=== PATIENT | male | born 1935 | race Caucasian/White ===

== ENCOUNTER 2020-03-30 19:09 | Inpatient (IN) | payer MEDICARE, SELFPAY ==
[2020-03-30 19:16] VITALS: BP 161/72; PULSE 82; RESP 16; TEMP 36.6; O2SAT 95; BMI 17.6
--- NOTE | 2020-03-30 19:52 | CT_ITS ---
EXAMINATION: CT BRAIN AND CT CERVICAL SPINE WITHOUT CONTRAST. CLINICAL INFORMATION: Fall, head. Injury. Neck pain. COMPARISON: None TECHNIQUE: 5 mm thin axial and reformatted 2 mm thin sagittal and coronal images of brain were obtained. Subsequently axial 3 mm thin and reformatted 2 mm thin sagittal and coronal images of cervical spine were obtained. [facility] 885 FINDINGS: BRAIN: There is no acute intra-axial, extra-axial bleed, masses or midline shift. No acute infarction in evolution. The lateral ventricles are asymmetrical but enlarged. There is mild prominence of cortical sulci. The parham to white matter differentiation is maintained normal. Bone windows reveal no calvarial abnormality. No scalp soft tissue amount. The paranasal sinuses and mastoid air cells are well-aerated. CERVICAL SPINE: There is maintained cervical lordosis. The vertebral heights, and alignment is normal. The disc heights are maintained and normal. The craniovertebral junction and C1-C2 alignment is normal. There is no visible acute fracture, dislocation or subluxation seen. The prevertebral and paravertebral soft tissues are normal. There is mild ventral spondylosis C6-C7 disc level. The lung apices are clear. CT/CT head/brain wo con IMPRESSION: No acute intracranial process seen.. No acute fracture, dislocation or subluxation seen. There is mild ventral spondylosis C6-C7 disc level.
--- NOTE | 2020-03-30 19:52 | XR_ITS ---
EXAMINATION: SINGLE VIEW CHEST, PELVIS AND RIGHT HIP CLINICAL INFORMATION: Fall with hip pain COMPARISON: CT abdomen pelvis 10/02/2008 TECHNIQUE: Single view chest, single view pelvis with 3 additional views right hip FINDINGS: Chest: No significant abnormality is seen involving the heart, lungs, mediastinum or bony thorax. Pelvis and right hip: there is a fracture of the surgical neck of the right femur with about 1.8 cm of superior subluxation. There is mild varices angulation. No other fractures are seen. Incidental note made of fiduciary clips in the prostate bed. XR/XR chest 1V IMPRESSION: Right femoral neck fracture.
--- NOTE | 2020-03-30 19:52 | CT_ITS ---
EXAMINATION: CT BRAIN AND CT CERVICAL SPINE WITHOUT CONTRAST. CLINICAL INFORMATION: Fall, head. Injury. Neck pain. COMPARISON: None TECHNIQUE: 5 mm thin axial and reformatted 2 mm thin sagittal and coronal images of brain were obtained. Subsequently axial 3 mm thin and reformatted 2 mm thin sagittal and coronal images of cervical spine were obtained. [facility] [id number] FINDINGS: BRAIN: There is no acute intra-axial, extra-axial bleed, masses or midline shift. No acute infarction in evolution. The lateral ventricles are asymmetrical but enlarged. There is mild prominence of cortical sulci. The parham to white matter differentiation is maintained normal. Bone windows reveal no calvarial abnormality. No scalp soft tissue amount. The paranasal sinuses and mastoid air cells are well-aerated. CERVICAL SPINE: There is maintained cervical lordosis. The vertebral heights, and alignment is normal. The disc heights are maintained and normal. The craniovertebral junction and C1-C2 alignment is normal. There is no visible acute fracture, dislocation or subluxation seen. The prevertebral and paravertebral soft tissues are normal. There is mild ventral spondylosis C6-C7 disc level. The lung apices are clear. CT/CT cervical spine wo con IMPRESSION: No acute intracranial process seen.. No acute fracture, dislocation or subluxation seen. There is mild ventral spondylosis C6-C7 disc level.
--- NOTE | 2020-03-30 19:52 | XR_ITS ---
EXAMINATION: SINGLE VIEW CHEST, PELVIS AND RIGHT HIP CLINICAL INFORMATION: Fall with hip pain COMPARISON: CT abdomen pelvis 10/02/2008 TECHNIQUE: Single view chest, single view pelvis with 3 additional views right hip FINDINGS: Chest: No significant abnormality is seen involving the heart, lungs, mediastinum or bony thorax. Pelvis and right hip: there is a fracture of the surgical neck of the right femur with about 1.8 cm of superior subluxation. There is mild varices angulation. No other fractures are seen. Incidental note made of fiduciary clips in the prostate bed. XR/XR hip RT w [id number] IMPRESSION: Right femoral neck fracture.
--- NOTE | 2020-03-30 19:55 | ECG_ITS ---
Test Reason : FALL Blood Pressure : / mmHG Vent. Rate : 080 BPM Atrial Rate : 300 BPM P-R Int : 000 ms QRS Dur : 130 ms QT Int : 392 ms P-R-T Axes : 000 -51 038 degrees QTc Int : 452 ms Baseline artifact in tracing Normal sinus rhythm Right bundle branch block Abnormal ECG When compared with ECG of 12-SEP-2008 10:08, due to poor quality, cannot compare Referred By: Jignesh Ashford Electronically Signed By:JEREMY GOODMAN
--- NOTE | 2020-03-30 20:05 | ED.GENADULT ---
HPI - General Adult General Chief complaint: Fall Stated complaint: fall Time Seen by Provider: 03/30/20 19:42 Source: patient and family (Daughter,Angélica ) Mode of arrival: EMS Limitations: language barrier ([place]ian speaking only) History of Present Illness HPI narrative: 84-year-old male who presents emergency department for evaluation of injuries after a fall. According to his daughter, the patient has neuropathy of his lower extremities and is able to walk with a cane and walker but often takes very small steps. The patient came out of the bathroom at 5:30 p.m., tripped and fell. The states that the patient did not lose consciousness but he was unable to get off the floor. She dragged him into the living room but he was unable to stand secondary to pain in his right hip. An ambulance was called and he was brought to the emergency department. The daughter states the patient was not ill in any way prior to the fall. In the emergency department, the patient is complaining of headache which is a constant, pressure-like sensation which is [id number] in intensity. He is complaining of right chest pain which is worse with movement and breathing. He is also complaining of severe pain in his right hip which is a constant, sharp, stabbing pain which is 8/10 at its worst. Related Data Home Medications Medication Instructions Recorded Confirmed atorvastatin 1 tab PO DAILY 03/30/20 03/30/20 lidocaine-prilocaine 1 appl TOPICAL BEDTIME 03/30/20 03/30/20 lisinopril 1 tab PO DAILY 03/30/20 03/30/20 oxybutynin chloride 1 tab PO DAILY 03/30/20 03/30/20 pregabalin [Lyrica] 1 cap PO BID 03/30/20 03/30/20 tamsulosin 1 cap PO DAILY 03/30/20 03/30/20 Allergies Allergy/AdvReac Type Severity Reaction Status Date / Time No Known Allergies Allergy Mild N/A Verified 03/30/20 19:20 Review of Systems Review of Systems: Yes all other systems are reviewed and are negative Neurologic: Reports Abnormal speech present [facility] Past Medical History [facility] Narrative: Patient has a history of hypertension and lower extremity neuropathy. The daughter states he had a colon procedure for ?early cancer ?. The patient is a former smoker but does not currently smoke. He does not drink alcohol. He does not use drugs. Medical History (Updated 03/30/20 @ 22:35 by Titus Rinaldi MD) HTN (hypertension) Social History Social History Smoking Status: Never smoker Use of substances other than those prescribed or required for medical reasons: No Advance Directives: No Advance Directives Information Provided: Yes Physical Exam Vital Signs: Vital Signs: Last Vital Signs Temp 98.2 F 03/30/20 22:01 Pulse 95 03/30/20 22:01 Resp 20 03/30/20 22:01 BP 145/70 H 03/30/20 22:01 Pulse Ox 91 L 03/30/20 22:01 Body Mass Index 17.6 Const: General: cooperative Nutritional Appearance: thin Orientation/consciousness: oriented to person and oriented to place HENMT: Head: Yes normal to inspection, Yes normocephalic and No atraumatic (Tenderness over occiput, no hematoma) Ears: external ears normal General nose exam: Normal external nose present Face and sinus: Yes normal facial exam Mouth: Normal oral and palatal mucosa present Throat: Yes posterior oropharynx normal Eyes: Periorbital: periorbital findings normal Eyelids: Yes eyelids normal Conjunctivae: conjunctivae normal Sclerae: sclerae normal Corneas: corneas normal Pupils: Equal, round and reactive pupils present Direct Ophthalmoscopy: normal light reflex Neck: Neck: Yes no lymphadenopathy, Yes no meningeal signs, Yes trachea midline and Yes other (Tenderness cervical spine) Chest: Chest palpation & inspection: normal inspection of the chest and other (Right chest wall tenderness, no crepitus) Resp: Effort & Inspection: normal respiratory effort and able to speak in complete sentences Auscultation: clear to auscultation bilaterally Cardio: Rate: regular rate Rhythm: regular rhythm Heart sounds: S1 normal heart sound present, S2 normal heart sound present and no murmurs GI: Inspection: Yes normal to inspection Palpation (GI): Soft to palpation, nontender, no guarding, not rigid and No hepatosplenomegaly present : General: Yes no CVA tenderness Back/Spine/Pelvis: Back: no CVA tenderness and other (No point tenderness over her to break) Skin: Lesions: no lesions Rashes: no rashes Wounds: no wounds Neuro: General: oriented to person, oriented to place and no meningeal signs Cranial nerves: Yes Equal, round and reactive pupils present Cognition (Neuro): normal cognition Speech: Abnormal speech present Motor exam (neuro): 5/5 motor strength present throughout Extrem: General: Yes normal exam except as noted and Yes other (Right leg is shorter than left, increased pain in hip with right leg moveme) Psych: Mental Status: mental status grossly normal Speech and movement: Normal speech and movement present Affect: normal affect Attitude: cooperative Thought content: Normal thought content present Course Course Course Narrative: 84-year-old male who presents emergency department for evaluation of injuries from a fall. The patient fell at home around 5:30 p.m. and this was witnessed by his . Patient had no loss of consciousness. According to his daughter, the patient has an abnormal gait secondary to lower extremity neuropathy and he does fall occasionally. Physical examination did reveal head and neck tenderness, right chest wall tenderness and right hip tenderness with shortening of the right leg. I did order laboratory evaluation and x-rays on this patient. Patient's pain was treated with morphine 2 mg IV and Zofran 4 mg IV. He was also given a L of normal saline IV. 2: The patient's laboratory evaluation did reveal a slightly low platelet count of a [id number] otherwise was unremarkable. CT scan of the head and neck revealed no acute findings, chest x-ray revealed no acute rib fracture, x-ray of the right hip did reveal a surgical neck fracture of the femur. The patient seems to be more comfortable after receiving IV morphine. I did discuss my findings with the patient's daughter, Angélica and informed her that the patient will be admitted and evaluated by Orthopedic surgery for further treatment. 8: I did discuss the patient's presentation with the covering orthopedic surgeon, Dr. Cooper who will consult on the patient. 2233: I did discuss the patient's presentation with the covering hospitalist and the patient will be admitted to the hospital service for further management. Medical Decision Making Lab Data Result diagrams: 03/30/20 20:52 03/30/20 20:52 Labs: Lab Results 03/30/20 03/30/20 03/30/20 Range/Units 20:52 20:52 20:52 WBC 9.5 (4.8-10.8) X10*3/uL RBC 4.87 (4.60-5.80) X10*6/uL Hgb 13.0 L (14.0-18.0) g/dl Hct 40.6 L (42-52) % MCV 83.4 (80-98) fL MCH 26.7 L (27.0-33.0) pg MCHC 32.0 (31.0-36.0) g/dl RDW 14.0 (11.0-16.0) % Plt Count 123 L (160-400) X10*3/uL MPV 11.5 (9.4-12.4) fL Immature Gran % (Auto) 0.3 (0.0-0.4) % Neut % (Auto) 85.0 H (45-73) % Lymph % (Auto) 6.4 L (20-40) % [place] % (Auto) 7.6 (2-11) % Eos % (Auto) 0.5 (0-4) % Baso % (Auto) 0.2 (0-2) % Lymph # (Auto) 0.6 L (1.2-4.9) X10*3/uL [place] # (Auto) 0.7 (0.1-1.2) X10*3/uL Eos # (Auto) 0.1 (0.0-0.4) X10*3/uL Baso # (Auto) 0.0 (0.0-0.2) X10*3/uL Abs Immat Gran (auto) 0.03 (0.00-0.03) X10*3/uL Absolute Neuts (auto) 8.1 (2.0-8.3) X10*3/uL Absolute Nucleated RBC 0.000 (0.0-0.012) X10*3/uL Nucleated RBC % (auto) 0.0 (0.0-0.2) /100WBC Smear Tech's Comments VERIFIED PT 13.5 H (10.8-13.0) SEC INR 1.1 (0.9-1.1) APTT 31.3 (24.1-38.0) SEC Sodium 140 (135-145) mmol/L Potassium 4.5 (3.3-5.1) mmol/l Chloride 104 (96-108) mmol/L Carbon Dioxide 25 (22-29) mmol/L Anion Gap 16 (12-20) BUN 21 H (9-16) mg/dL Creatinine 1.23 (0.5-1.4) mg/dL Estim Creat Clear Calc 35.9 Estimated GFR 56 Random Glucose 119 H (60-115) mg/dL Calcium 8.8 (8.4-10.2) mg/dL Total Bilirubin 1.3 H (0.0-1.0) mg/dL AST 30 (5-37) U/L ALT 16 (0-40) U/L Alkaline Phosphatase 105 (39-117) U/L Total Creatine Kinase 74 (38-174) U/L Total Protein 7.2 (6.5-8.0) g/dL Albumin 4.1 (3.5-5.0) g/dL Coronavirus (PCR) (Negative) Influenza Type A (PCR) (Negative) Influenza Type B (PCR) (Negative) RSV RNA Qual (PCR) (Negative) 03/30/20 Range/Units 21:08 WBC (4.8-10.8) X10*3/uL RBC (4.60-5.80) X10*6/uL Hgb (14.0-18.0) g/dl Hct (42-52) % MCV (80-98) fL MCH (27.0-33.0) pg MCHC (31.0-36.0) g/dl RDW (11.0-16.0) % Plt Count (160-400) X10*3/uL MPV (9.4-12.4) fL Immature Gran % (Auto) (0.0-0.4) % Neut % (Auto) (45-73) % Lymph % (Auto) (20-40) % [place] % (Auto) (2-11) % Eos % (Auto) (0-4) % Baso % (Auto) (0-2) % Lymph # (Auto) (1.2-4.9) X10*3/uL [place] # (Auto) (0.1-1.2) X10*3/uL Eos # (Auto) (0.0-0.4) X10*3/uL Baso # (Auto) (0.0-0.2) X10*3/uL Abs Immat Gran (auto) (0.00-0.03) X10*3/uL Absolute Neuts (auto) (2.0-8.3) X10*3/uL Absolute Nucleated RBC (0.0-0.012) X10*3/uL Nucleated RBC % (auto) (0.0-0.2) /100WBC Smear Tech's Comments PT (10.8-13.0) SEC INR (0.9-1.1) APTT (24.1-38.0) SEC Sodium (135-145) mmol/L Potassium (3.3-5.1) mmol/l Chloride (96-108) mmol/L Carbon Dioxide (22-29) mmol/L Anion Gap (12-20) BUN (9-16) mg/dL Creatinine (0.5-1.4) mg/dL Estim Creat Clear Calc Estimated GFR Random Glucose (60-115) mg/dL Calcium (8.4-10.2) mg/dL Total Bilirubin (0.0-1.0) mg/dL AST (5-37) U/L ALT (0-40) U/L Alkaline Phosphatase (39-117) U/L Total Creatine Kinase (38-174) U/L Total Protein (6.5-8.0) g/dL Albumin (3.5-5.0) g/dL Coronavirus (PCR) NEGATIVE (Negative) Influenza Type A (PCR) NEGATIVE (Negative) Influenza Type B (PCR) NEGATIVE (Negative) RSV RNA Qual (PCR) NEGATIVE (Negative) ECG Data Attestation: I personally reviewed and interpreted this ECG as follows: Interpretation: 2011: Sinus rhythm with rate of 80, artifact baseline makes the EKG difficult to interpret, normal AL interval, prolonged QRS interval 130 milliseconds, normal QTC interval of 452 milliseconds, right bundle-branch block, no ST segment elevation or depression, no old EKG for comparison. Discharge Plan Discharge Clinical Impression: Fall, Closed displaced fracture of right femoral neck, Closed head injury, Contusion of right chest wall Patient Disposition: Admitted As Inpatient Prescriptions: No Action atorvastatin 10 mg tablet 1 tab PO DAILY RF: 0 lidocaine-prilocaine 2.5-2.5 % cream 1 appl topical BEDTIME RF: 0 tamsulosin 0.4 mg capsule 1 cap PO DAILY RF: 0 lisinopril 10 mg tablet 1 tab PO DAILY RF: 0 oxybutynin chloride 5 mg tablet extended release 24hr 1 tab PO DAILY RF: 0 pregabalin [Lyrica] 150 mg capsule 1 cap PO BID RF: 0
[2020-03-30] MEDS: 0.9 % Sodium Chloride 1,000 ML 999 ML IV (20:51)
[2020-03-30 20:59] LABS: Imm Gran Abs Auto 0.03 X10*3/uL (0.00-0.03); Imm Gran Pct Auto 0.3 % (0.0-0.4); Lymphocytes Absolute Auto 0.6 X10*3/uL (1.2-4.9); Lymphocytes Percent Auto 6.4 % (20-40); MANUAL DIFF FLAG SCAN; Mean Corpuscular Volume 83.4 fL (80-98); Mean Platelet Volume 11.5 fL (9.4-12.4); PLT CLUMP 1; SCAN SMEAR FLAG 1
[2020-03-30 21:01] LABS: Basophils Percent Auto 0.2 % (0-2); Eosinophils Absolute Auto 0.1 X10*3/uL (0.0-0.4); Eosinophils Percent Auto 0.5 % (0-4); Hematocrit 40.6 % (42-52); Mean Corpuscular Hemoglobin 26.7 pg (27.0-33.0); Monocytes Absolute Auto 0.7 X10*3/uL (0.1-1.2); Monocytes Percent Auto 7.6 % (2-11); Neutrophils Absolute Auto 8.1 X10*3/uL (2.0-8.3); Platelet Count 123 X10*3/uL (160-400); Red Blood Count 4.87 X10*6/uL (4.60-5.80); White Blood Count 9.5 X10*3/uL (4.8-10.8)
[2020-03-30 21:04] LABS: INTERNATIONAL NORM RATIO 1.1 (0.9-1.1); Prothrombin Time 13.5 SEC (10.8-13.0)
[2020-03-30 21:07] LABS: Partial Thromboplastin Time 31.3 SEC (24.1-38.0)
[2020-03-30 21:13] VITALS: RESP 15
[2020-03-30] MEDS: ondansetron HCL 4 MG/2 ML VIAL IVPUSH (21:13)
[2020-03-30] MEDS: Morphine Sulfate 4 MG/ML CARTRIDGE 2 MG IVPUSH (21:13)
--- NOTE | 2020-03-30 21:14 | PC.NURSE ---
Patient lined and lab'd, swabbed for covid. Patients medication delayed due to patient being in CAT SCAN
[2020-03-30 21:20] LABS: SLIDE REVIEW VERIFIED
[2020-03-30 21:25] LABS: Alanine Aminotransferase 16 U/L (0-40); Albumin Level 4.1 g/dL (3.5-5.0); Alkaline Phosphatase 105 U/L (39-117); Anion Gap 16 (12-20); Aspartate Amino Transferase 30 U/L (5-37); Bilirubin Total 1.3 mg/dL (0.0-1.0); Blood Urea Nitrogen 21 mg/dL (9-16); Calcium 8.8 mg/dL (8.4-10.2); Carbon Dioxide 25 mmol/L (22-29); Chloride 104 mmol/L (96-108); Creatinine Clr Calc Pharmacy 35.9; Estimated Glomerular Filt Rate 56; Glucose Random 119 mg/dL (60-115); Potassium 4.5 mmol/l (3.3-5.1); Sodium 140 mmol/L (135-145); Total Protein 7.2 g/dL (6.5-8.0)
[2020-03-30 21:54] LABS: Influenza A PCR NEGATIVE (Negative); Influenza B PCR NEGATIVE (Negative); Resp Syncy Virus RNA Qual PCR NEGATIVE (Negative); SARS COV2 PCR INHOUSE NEGATIVE (Negative)
[2020-03-30 22:01] VITALS: BP 145/70; PULSE 95; RESP 20; TEMP 36.8; O2SAT 91
[2020-03-30 22:30] LABS: Glucose Urine UA NEG (NEG); Leukocyte Esterase Urine NEG (NEG); Nitrite Urine NEG (NEG); Urine Blood NEG (NEG); Urine Ketones NEG (NEG); Urine Protein NEG (NEG-TRACE)
[2020-03-30 22:34] LABS: Appearance Urine CLEAR; Color Urine YELLOW
--- NOTE | 2020-03-30 22:47 | PM.IMHP ---
History of Present Illness Date of Service: 03/30/20 Chief Complaint: Hip fracture this is an 84 yo M with hx of HTN, HLD who presents to the hospital with fall and hip fracture. Pt [place] citizen speaking only and is a poor historian. history is obtained from ED physician who obtained history from the pts daughter. 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 it appears that pt tripped today and fell, once he fell, he wasnt able to get up and therefore his who was with him called EMS. cannot obtain rest of ROS as pt poor historian On arrival to the ED hemodynamically stable with no significant abnormal vitals Labs are significant for normal WBC of 9.5, hemoglobin of 13, hematocrit 4.6, PT of 13.5, INR of 1.1, sodium of 140, potassium 4.5, BUN of 29, creatinine of 1.23, COVID-19 influenza A/B and RSV negative, Head and cervical spine CT negative for any intracranial process, no fracture dislocation or subluxation seen in the cervical spine Hip x-ray shows right femoral neck fracture Orthopedics sr solutions consultant patient will be admitted for surgical intervention Past medical history is obtained from EMR Past medical history: hypertension, hyperlipidemia, neuropathy Past surgical history: Unknown Family history: Unknown Social history: Comes from home, lives with his , uses a walker, no recorded history of tobacco alcohol or illicit drugs at this time Review of Systems Review of Systems: Yes Unobtainable due to mental condition and Unobtainable due to mental status [facility] Medical History HTN (hypertension) Social History Smoking Status: Never smoker Use of substances other than those prescribed or required for medical reasons: No Advance Directives: No Advance Directives Information Provided: Yes Meds Allergies Allergy/AdvReac Type Severity Reaction Status Date / Time No Known Allergies Allergy Mild N/A Verified 03/30/20 19:20 Home Medications Medication Instructions Recorded Confirmed Type atorvastatin 1 tab PO DAILY 03/30/20 03/30/20 History lidocaine-prilocaine 1 appl TOPICAL BEDTIME 03/30/20 03/30/20 History lisinopril 1 tab PO DAILY 03/30/20 03/30/20 History oxybutynin chloride 1 tab PO DAILY 03/30/20 03/30/20 History pregabalin [Lyrica] 1 cap PO BID 03/30/20 03/30/20 History tamsulosin 1 cap PO DAILY 03/30/20 03/30/20 History Physical Exam Vital Signs and Narrative: Vital Signs: Last Vital Signs Temp 98.2 F 03/30/20 22:01 Pulse 95 03/30/20 22:01 Resp 20 03/30/20 22:01 BP 145/70 H 03/30/20 22:01 Pulse Ox 91 L 03/30/20 22:01 Body Mass Index 17.6 Const: General: no acute distress Eyes: General: appearance normal, both eyes and all related structures Resp: Effort & Inspection: normal respiratory effort and able to speak in complete sentences Cardio: Rate: regular rate Rhythm: regular rhythm GI: Palpation (GI): Soft to palpation Auscultation: normal bowel sounds Neuro: Cognition (Neuro): normal cognition Extrem: Other: Leg internally rotated General: Yes normal to inspection and Yes no pedal edema Results Labs CBC and Chem 7: 03/30/20 20:52 03/30/20 20:52 Labs: Laboratory Results - last 24 hr 03/30/20 03/30/20 03/30/20 20:52 20:52 20:52 MCV 83.4 MCH 26.7 L MCHC 32.0 RDW 14.0 Plt Count 123 L MPV 11.5 Immature Gran % (Auto) 0.3 Neut % (Auto) 85.0 H Lymph % (Auto) 6.4 L [place] % (Auto) 7.6 Eos % (Auto) 0.5 Baso % (Auto) 0.2 Lymph # (Auto) 0.6 L [place] # (Auto) 0.7 Eos # (Auto) 0.1 Baso # (Auto) 0.0 Abs Immat Gran (auto) 0.03 Absolute Neuts (auto) 8.1 Absolute Nucleated RBC 0.000 Nucleated RBC % (auto) 0.0 Smear Tech's Comments VERIFIED PT 13.5 H INR 1.1 APTT 31.3 Anion Gap 16 Estim Creat Clear Calc 35.9 Estimated GFR 56 Random Glucose 119 H Calcium 8.8 Total Bilirubin 1.3 H AST 30 ALT 16 Alkaline Phosphatase 105 Total Creatine Kinase 74 Total Protein 7.2 Albumin 4.1 Urine Color Urine Appearance Urine pH Ur Specific [place] Urine Protein Urine Glucose (UA) Urine Ketones Urine Blood Urine Nitrite Ur Leukocyte Esterase Coronavirus (PCR) Influenza Type A (PCR) Influenza Type B (PCR) RSV RNA Qual (PCR) 03/30/20 03/30/20 21:08 22:14 MCV MCH MCHC RDW Plt Count MPV Immature Gran % (Auto) Neut % (Auto) Lymph % (Auto) [place] % (Auto) Eos % (Auto) Baso % (Auto) Lymph # (Auto) [place] # (Auto) Eos # (Auto) Baso # (Auto) Abs Immat Gran (auto) Absolute Neuts (auto) Absolute Nucleated RBC Nucleated RBC % (auto) Smear Tech's Comments PT INR APTT Anion Gap Estim Creat Clear Calc Estimated GFR Random Glucose Calcium Total Bilirubin AST ALT Alkaline Phosphatase Total Creatine Kinase Total Protein Albumin Urine Color YELLOW Urine Appearance CLEAR Urine pH 7.0 Ur Specific [place] 1.020 Urine Protein NEG Urine Glucose (UA) NEG Urine Ketones NEG Urine Blood NEG Urine Nitrite NEG Ur Leukocyte Esterase NEG Coronavirus (PCR) NEGATIVE Influenza Type A (PCR) NEGATIVE Influenza Type B (PCR) NEGATIVE RSV RNA Qual (PCR) NEGATIVE Imaging Radiologist's Impressions: Impressions Cervical Spine CT 03/30/20 19:52 IMPRESSION: No acute intracranial process seen.. No acute fracture, dislocation or subluxation seen. There is mild ventral spondylosis C6-C7 disc level. Chest X-Ray 03/30/20 19:52 IMPRESSION: Right femoral neck fracture. Head CT 03/30/20 19:52 IMPRESSION: No acute intracranial process seen.. No acute fracture, dislocation or subluxation seen. There is mild ventral spondylosis C6-C7 disc level. Hip/Pelvis X-Ray 03/30/20 19:52 IMPRESSION: Right femoral neck fracture. Assessment and Plan (1) Fall: Qualifiers: Encounter type: initial encounter Qualified Code(s): W19.XXXA - Unspecified fall, initial encounter Status: Acute (2) Closed displaced fracture of right femoral neck: Status: Acute This is a gentleman who has a history of neuropathy who experienced a mechanical fall at home comes in with a fracture. # right closed displaced fracture of right femoral neck - appears to have been secondary to mechanical fall in the setting of neuropathy - orthopedic was consulted by ED physician will see patient in a.m. for possible intervention in the morning - will keep patient NPO - pain control # fall - secondary to mechanical in the setting of chronic severe neuropathy - consult physical therapy # hypertension - stable - continue lisinopril DVT prophylaxis: SCDs
[2020-03-31] VITALS (9 sets, daily range): BP systolic 136–177; BP diastolic 59–85; PULSE 74–94; RESP 12–20; TEMP 36.6–37.8; O2SAT 93–99
--- NOTE | 2020-03-31 | CT_ITS ---
EXAMINATION: CT ANGIOGRAM OF THE CHEST WITH AND WITHOUT CONTRAST (CT PULMONARY ANGIOGRAM FOR PE) CLINICAL INFORMATION: Reason for Exam Hyoxia COMPARISON: Chest radiograph done earlier today. TECHNIQUE: Prior to contrast administration, noncontrast localization images were obtained. Subsequently, multidetector volumetric imaging was performed from the thoracic inlet to below the diaphragms following the administration of 65 mL Omnipaque 350 intravenous contrast. No contrast reaction reported Sagittal, coronal, and MIP oblique sagittal reformatted images were obtained on the CT workstation, uploaded to PACS, and reviewed. This CT examination was performed using dose optimization techniques as appropriate, variously including the following: *Automated exposure control *Adjustment of mA and/or kV according to patient size (this includes techniques or standardized protocols for targeted exams where dose is matched to indication/reason for exam; i.e. extremities or head) *Use of iterative reconstruction technique Total exam dose-length product 271.0 mGy-cm FINDINGS: QUALITY OF STUDY/CONTRAST BOLUS: Satisfactory. PULMONARY ARTERIES: No central or segmental pulmonary emboli. THORACIC AORTA: No aneurysm or dissection. Atherosclerotic disease including coronary artery calcifications are noted. LUNG: Hypoventilatory changes are present at both lung bases (left greater than right). Mild emphysematous disease is seen. PLEURA: No pleural effusion or pneumothorax. MEDIASTINUM: Normal heart size. No pericardial effusion. No hilar or mediastinal lymphadenopathy. No evidence of septal bowing or right heart strain. CHEST WALL/AXILLA: No axillary or internal mammary lymphadenopathy. OSSEOUS STRUCTURES: No acute or suspicious osseous abnormality. UPPER ABDOMEN: Multiple hypodense lesions are present within the visualized kidneys, the largest seen within the superior pole of the left kidney measures approximately 4 cm at its maximum dimension, most consistent with incidental cysts. No reflux of contrast into the hepatic veins to suggest elevated right heart pressures. CT/CT angio chest PE protocol IMPRESSION: 1. No CT evidence of pulmonary thromboembolism. 2. Atherosclerotic disease of the aorta and is branches including coronary artery calcifications are noted. 3. Hypoventilatory changes are present at both lung bases. Mild emphysematous disease is seen. 4. Multiple hypodense lesions within the kidneys, most consistent with cortical renal cysts. VTE: Negative.
--- NOTE | 2020-03-31 | XR_ITS ---
EXAMINATION: XR CHEST CLINICAL INFORMATION: Cough COMPARISON: 03/30/2020 8:27 PM TECHNIQUE: Frontal view of the chest was obtained. FINDINGS: Normal cardiomediastinal silhouette. No focal consolidation. No pleural effusion or pneumothorax. No acute osseous abnormality. XR/XR chest 1V IMPRESSION: No acute disease within the chest.
[2020-03-31] MEDS: 0.9 % Sodium Chloride Flush 3 ML SYRINGE IVFLUSH ×3 (01:03→17:42)
[2020-03-31] MEDS: Morphine Sulfate 4 MG/ML CARTRIDGE 2 MG IVPUSH (01:46)
[2020-03-31 05:33] LABS: MANUAL DIFF FLAG NO
[2020-03-31 05:40] LABS: Basophils Percent Auto 0.1 % (0-2); Eosinophils Absolute Auto 0.1 X10*3/uL (0.0-0.4); Hematocrit 38.5 % (42-52); Hemoglobin 12.3 g/dl (14.0-18.0); Imm Gran Abs Auto 0.03 X10*3/uL (0.00-0.03); Imm Gran Pct Auto 0.3 % (0.0-0.4); Lymphocytes Absolute Auto 1.6 X10*3/uL (1.2-4.9); Lymphocytes Percent Auto 17.5 % (20-40); Mean Corpuscular HGB Conc 31.9 g/dl (31.0-36.0); Mean Corpuscular Hemoglobin 26.6 pg (27.0-33.0); Mean Corpuscular Volume 83.3 fL (80-98); Mean Platelet Volume 11.7 fL (9.4-12.4); Monocytes Absolute Auto 0.8 X10*3/uL (0.1-1.2); Monocytes Percent Auto 8.6 % (2-11); Neutrophils Absolute Auto 6.4 X10*3/uL (2.0-8.3); Neutrophils Percent Auto 72.5 % (45-73); Platelet Count 124 X10*3/uL (160-400); Red Blood Count 4.62 X10*6/uL (4.60-5.80); Red Cell Distribution Width 13.9 % (11.0-16.0); White Blood Count 8.8 X10*3/uL (4.8-10.8)
[2020-03-31 06:14] LABS: Anion Gap 13 (12-20); Blood Urea Nitrogen 17 mg/dL (9-16); Calcium 8.4 mg/dL (8.4-10.2); Carbon Dioxide 24 mmol/L (22-29); Chloride 109 mmol/L (96-108); Creatinine Clr Calc Pharmacy 50.2; Estimated Glomerular Filt Rate > 60; Glucose Random 93 mg/dL (60-115); Potassium 3.9 mmol/l (3.3-5.1); Sodium 142 mmol/L (135-145)
--- NOTE | 2020-03-31 08:06 | P.PNIM_ITS ---
Subjective Subjective Date of Service: 03/31/20 Interval History: Seen in f/u for right hip fracture from fall, has pain with movmene of the hip Review of Systems Gen: no fever Resp: no sob, no cough CV: no chest, no VEGA, no leg edema GI: No n/v, no abd pain Neuro: No confusion Musk:right hip pain Physical Exam Vital Signs: Vital Signs: Last Vital Signs Temp 100.0 F 03/31/20 08:01 Pulse 85 03/31/20 08:01 Resp 16 03/31/20 08:01 BP 149/74 H 03/31/20 08:01 Pulse Ox 95 03/31/20 08:01 Body Mass Index 17.6 Const: General: no acute distress Resp: Effort & Inspection: normal respiratory effort and able to speak in complete sentences Cardio: Rate: regular rate Rhythm: regular rhythm GI: Palpation (GI): Soft to palpation Auscultation: normal bowel sounds Neuro: Cognition (Neuro): normal cognition Extrem: Other: R Leg internally rotated, pain with right hip movement General: Yes normal to inspection and Yes no pedal edema Psych: Appearance: grossly normal Objective Data Current Medications Generic Name Dose Route Start Last Admin Trade Name Freq PRN Reason Stop Dose Admin Acetaminophen 650 mg 03/30/20 22:46 Acetaminophen 325 Mg Tablet PO Q6H PRN Pain, Mild (Pain Scale 1-3) Atorvastatin Calcium 10 mg 03/31/20 09:00 Atorvastatin Calcium 10 Mg Tablet PO DAILY [facility] Docusate Sodium 100 mg 03/31/20 09:00 Docusate Sodium 100 Mg Capsule PO DAILY [facility] Lisinopril 10 mg 03/31/20 09:00 Lisinopril 10 Mg Tablet PO DAILY [facility] Protocol Morphine Sulfate 2 mg 03/30/20 22:46 03/31/20 01:46 Morphine Sulfate 4 Mg/Ml Cartridge IVPUSH 2 mg Q4H PRN Administration Pain, Severe (Pain Scale 7-10) Ondansetron HCl 4 mg 03/30/20 22:46 Ondansetron Hcl 4 Mg/2 Ml Vial IVPUSH Q8H PRN Nausea and Vomiting Oxybutynin Chloride 5 mg 03/31/20 09:00 Oxybutynin Chloride Er 5 Mg Tab.Er.24 PO DAILY [facility] Pregabalin 150 mg 03/31/20 09:00 Pregabalin 150 Mg Capsule PO BID [facility] Sodium Chloride 3 ml 03/31/20 00:00 03/31/20 08:04 0.9 % Sodium Chloride Flush 3 Ml Syringe IVFLUSH 3 ml QSHIFT [facility] Administration Tamsulosin HCl 0.4 mg 03/31/20 09:00 Tamsulosin Hcl 0.4 Mg Capsule PO DAILY [facility] Labs CBC & Chem 7: 03/31/20 04:38 03/31/20 04:38 Assessment and Plan (1) Fall: Status: Acute (2) Closed displaced fracture of right femoral neck: Status: Acute Assessment and Plan: 84 year old gentleman with history of neuropathy is admitted due to right hip fracture related to mechanical fall # Right closed displaced fracture of right femoral neck from mechanical fall -Pain management with Tyelenol and Morphine as needed -Ortho to evaluate for operative repair -Get an ECG and if unremarkable no further cardiopulmonary testing before surgery # Fall - secondary to mechanical in the setting of chronic severe neuropathy - Physical therapy evaluation after surgery # Hypertension - stable - continue lisinopril DVT prophylaxis: SCD, heparin or Lovenox after surgery
[2020-03-31 08:26] LABS: INTERNATIONAL NORM RATIO 1.2 (0.9-1.1); Prothrombin Time 14.2 SEC (10.8-13.0)
--- NOTE | 2020-03-31 09:04 | PC.NURSE ---
helped pt with toilting, went over patient needs with director call center sales
[2020-03-31] MEDS: Docusate Sodium 100 MG CAPSULE PO (10:04)
[2020-03-31] MEDS: Atorvastatin Calcium 10 MG TABLET PO (10:04)
[2020-03-31] MEDS: Tamsulosin HCL 0.4 MG CAPSULE PO (10:05)
[2020-03-31] MEDS: Pregabalin 150 MG CAPSULE PO ×2 (10:05→19:56)
[2020-03-31 10:57] LABS: B Type Natriuretic Peptide 82 pg/mL (<100)
--- NOTE | 2020-03-31 11:15 | PC.NURSE ---
hospitalist contacted about pt results. pt sat to 88% on room air. 2l nc applied and pt sating 95%. pt will not tolerate cafeteria monitor or to continue wearing pulse ox. pt plays with cords and pulls them off. hospitalist plans to add ct scan of chest
--- NOTE | 2020-03-31 11:50 | PC.NURSE ---
xuan gomez at bedside for eval. plan for ct now
--- NOTE | 2020-03-31 12:24 | PC.NURSE ---
called to med surg for report
[2020-03-31] MEDS: iohexoL 350 MG/ML 100 ML INFUS..BTL IV (12:57)
[2020-04-01] VITALS (15 sets, daily range): BP systolic 131–162; BP diastolic 65–86; PULSE 73–109; RESP 16–22; TEMP 36.5–37.8; O2SAT 92–98; BMI 17.6
[2020-04-01] MEDS: 0.9 % Sodium Chloride Flush 3 ML SYRINGE IVFLUSH ×2 (01:01→08:45)
--- NOTE | 2020-04-01 07:13 | P.HPOP_ITS ---
History of Present Illness History of Present Illness Date of Service: 04/01/20 Chief complaint: hip fracture Narrative: Rubio Sheridan is a 84 year old male who sustained a mechanical fall and was admitted to the hospital after imaging revealed a right femoral neck fracture. He walks with a walker and uses a wheelchair for long walks because of bilateral neuropathy in his feet. He finds walking painful. He now complains of right hip pain. Review of Systems Constitutional: Constitutional: Reports as per HPI and Reports no additional constitutional complaints Eyes: Eyes: Reports no additional eye complaints Cardiovascular: Cardiovascular: Reports as per HPI and Reports no additional cardiovascular complaints Respiratory: Respiratory: Reports as per HPI and Reports no additional respiratory complaints Gastrointestinal: Gastrointestinal: Reports as per HPI and Reports no additional gastrointestinal complaints Integumentary/Breasts: Skin/Breast: Reports system reviewed and no additional complaints, except as docu Neurologic: Reports system reviewed and no additional complaints, except as documented Psychiatric: Psychiatric: Reports no additional psychiatric complaints [facility] Past Medical History Medical History HTN (hypertension) Social History Social History Household Members: Unknown / Unable to assess Housing: Unknown / Unable to assess Smoking Status: Never smoker Use of substances other than those prescribed or required for medical reasons: Unable to respond Currently Displaying Signs/Symptoms of Drug Intoxication Withdrawal: No Advance Directives: No Advance Directives Information Provided: Yes Do you have thoughts of harming others: None Do you have a plan to hurt others: No Plan Recently lost weight without trying: Unsure Meds Allergies Allergy/AdvReac Type Severity Reaction Status Date / Time No Known Allergies Allergy Mild N/A Verified 03/30/20 19:20 Home Medications Medication Instructions Recorded Confirmed Type atorvastatin 1 tab PO DAILY 03/30/20 03/30/20 History lidocaine-prilocaine 1 appl TOPICAL BEDTIME 03/30/20 03/30/20 History lisinopril 1 tab PO DAILY 03/30/20 03/30/20 History oxybutynin chloride 1 tab PO DAILY 03/30/20 03/30/20 History pregabalin [Lyrica] 1 cap PO BID 03/30/20 03/30/20 History tamsulosin 1 cap PO DAILY 03/30/20 03/30/20 History Physical Exam Vital Signs: Vital Signs: Last Vital Signs Temp 98.7 F 04/01/20 03:49 Pulse 95 04/01/20 03:49 Resp 16 04/01/20 03:49 BP 148/74 H 04/01/20 03:49 Pulse Ox 92 04/01/20 03:49 Body Mass Index 17.6 Const: General: cooperative, healthy appearing, no acute distress and well groomed Orientation/consciousness: oriented to person and oriented to place HENMT: Head: Yes normal to inspection, Yes normocephalic and Yes atraumatic Eyes: General: appearance normal, both eyes and all related structures Alignment and Position: alignment normal Conjunctivae: conjunctivae normal EOM: EOMs intact bilaterally Neck: Neck: Yes normal visual inspection and Yes trachea midline Resp: Other: No rerpiratory distress Effort & Inspection: normal respiratory effort and able to speak in complete sentences Cardio: Other: Palpable radial pulse with no appreciable rythmic abnormalities GI: Other: No abdominal distension Back/Spine/Pelvis: Cervical Spine: normal cervical lordosis and cervical ROM normal Skin: General skin exam: no rashes or lesions noted Neuro: General: oriented to person, oriented to place and gait normal Extrem: Other: pain with motion. shortened and externally rotated RLE Results Labs Result Diagrams: 03/31/20 04:38 03/31/20 04:38 Labs: Abnormal lab results 03/31/20 Range/Units 07:48 PT 14.2 H (10.8-13.0) SEC INR 1.2 H (0.9-1.1) H & H 03/30/20 03/31/20 Range/Units 20:52 04:38 Hgb 13.0 L 12.3 L (14.0-18.0) g/dl Hct 40.6 L 38.5 L (42-52) % Coagulation 03/30/20 03/31/20 Range/Units 20:52 07:48 INR 1.1 1.2 H (0.9-1.1) All other labs normal. Diagnostic results Hip x-ray: image reviewed (displaced right femoral neck fracture) Assessment and Plan (1) Closed displaced fracture of right femoral neck: Status: Acute This is an 84 yo M with a right femoral neck fracture. He walks with a walker at baseline due to neuropathy but is sensate in the hip and would be more active if it weren't for his neuropathic pain. I recommend right hip hemiarthroplasty. I discussed this in detail with his daughter and explained the risks, benefits and aternatives including but not limited to infection, dislocation, pain, loss of ambulatory capacity as well as possible medical complications including pneumonia, blood clots and . Patient and daughter expressed understanding. Patient will be assessed by medicine for medical clearance.
--- NOTE | 2020-04-01 12:40 | MHC.CM.PN ---
pt in surgery called and spoke with shanon who explains that pt had no servceis prior to admisison and she is uncertain of dc plan at this time..pt will have pt consult prior to dc home with services vs str cm will continue to follow
--- NOTE | 2020-04-01 12:55 | HO.PM.IMPN ---
Subjective Subjective Date of Service: 04/02/20 Interval History: htn , fall Physical Exam Vital Signs: Vital Signs: Last Vital Signs Temp 99.2 F 04/01/20 12:00 Pulse 109 H 04/01/20 12:00 Resp 16 04/01/20 12:00 BP 131/74 04/01/20 12:00 Pulse Ox 92 04/01/20 12:00 Body Mass Index 17.6 Physio: Constitutional: Patient is sleepy post surgery Cvs: [id number], [id number] , no murmur res: clear to auscultation ,no rhonchii or wheezing abd: no rebound or guarding ,nt, bs present. ext pulses present , no cyanosis neuro: nonfocal. Objective Data Current Medications Generic Name Dose Route Start Last Admin Trade Name Freq PRN Reason Stop Dose Admin Acetaminophen 650 mg 03/30/20 22:46 Acetaminophen 325 Mg Tablet PO Q6H PRN Pain, Mild (Pain Scale 1-3) Albuterol/Ipratropium 3 ml 03/31/20 11:16 Albuterol/Iprat 2.5/0.5mg 3 Ml Ampul.Neb INHALE RQ4H PRN Shortness of Breath Atorvastatin Calcium 10 mg 03/31/20 09:00 04/01/20 08:45 Atorvastatin Calcium 10 Mg Tablet PO Not Given DAILY [facility] Docusate Sodium 100 mg 03/31/20 09:00 04/01/20 08:45 Docusate Sodium 100 Mg Capsule PO Not Given DAILY [facility] Lisinopril 10 mg 03/31/20 09:00 04/01/20 08:45 Lisinopril 10 Mg Tablet PO Not Given DAILY [facility] Protocol Morphine Sulfate 2 mg 03/30/20 22:46 03/31/20 01:46 Morphine Sulfate 4 Mg/Ml Cartridge IVPUSH 2 mg Q4H PRN Administration Pain, Severe (Pain Scale 7-10) Ondansetron HCl 4 mg 03/30/20 22:46 Ondansetron Hcl 4 Mg/2 Ml Vial IVPUSH Q8H PRN Nausea and Vomiting Oxybutynin Chloride 5 mg 03/31/20 09:00 04/01/20 08:45 Oxybutynin Chloride Er 5 Mg Tab.Er.24 PO Not Given DAILY [facility] Pregabalin 150 mg 03/31/20 09:00 04/01/20 08:46 Pregabalin 150 Mg Capsule PO Not Given BID [facility] Sodium Chloride 3 ml 03/31/20 00:00 04/01/20 08:45 0.9 % Sodium Chloride Flush 3 Ml Syringe IVFLUSH 3 ml QSHIFT [facility] Administration Tamsulosin HCl 0.4 mg 03/31/20 09:00 04/01/20 08:46 Tamsulosin Hcl 0.4 Mg Capsule PO Not Given DAILY [facility] Labs CBC & Chem 7: 04/02/20 05:53 04/02/20 05:53 Assessment and Plan (1) Closed displaced fracture of right femoral neck: Status: Acute (2) Fall: Status: Acute Assessment and Plan: 84 year old gentleman with history of neuropathy is admitted due to right hip fracture related to mechanical fall 1. Right closed displaced fracture of right femoral neck from mechanical fall management with Tyelenol and Morphine ,s/p surgery day1 seems sleepy but awake moniter closely sedation probably related to surgery/anesthesia 2. Fall- secondary to mechanical in the setting of chronic severe neuropathy Physical therapy evaluation after surgery 3. Hypertension: continue lisinopril DVT prophylaxis: SCD, heparin or Lovenox after surgery
--- NOTE | 2020-04-01 13:45 | P.CDIC_ITS ---
CDI Concurrent Query Service Date: 04/03/20 Documentation Clarification: Please clarify if you are treating a proba ble/suspected/likely or confirmed: Mild Protein Calorie Malnutrition Moderate Protein Calorie Malnutrition Severe Protein Calorie Malnutrition No Malnutrition Provider Response: Other Other Diagnosis: Moderate protein calorie malnutrition. PLEASE DO NOT DELETE/MODIFY EXISTING CONTENT Additional information is needed in order to code to the highest accuracy and appropriate Severity of Illness (SOI). Please clarify the information noted below in your progress notes and discharge summary. Risk Factors/Clinical Indicators/Treatments 84 year old male admitted with fall and closed displaced fracture right femoral neck. Seen by orthopedics and plan is for surgery. HT. 5'10 WT. 55.9 kg BMI 17.7 Total protein 7.2, Albumin 4.1 Patient documented as thin per MD note No Nutritional Assessment in EMR CDS: Marisol Duogn RN Contact Number: [phone] Please Review the information above and exercise your independent professional judgment in responding to the query. If you concur, pleas document in the PROGRESS NOTES and DISCHARGE SUMMARY. If you do not agree with the query, please document in the query above. THIS QUERY IS PART OF THE PERMANENT MEDICAL RECORD
[2020-04-01] MEDS: ceFAZolin Sodium/Dextrose,Iso 2 GM/50 ML PIGGYBACK IV (13:58)
--- NOTE | 2020-04-01 15:39 | P.CONAN_ITS ---
HPI - Anesthesia Eval Consult details Narrative: 84 M with dementia and peripheral neuropathy p/f right hip hemiar throplasty. O/e, significant upper airway secretions and cough, unable to handle secretions well. Unclear if c/w baseline. Per ortho, patient would benefit from earlier fixation. Discussed fascia iliaca nerve block and spinal anesthesia with patient and daughter, to minimize risk of post-operative respiratory complications and delirium. CXR reviewed and clear. Daughter and ortho surgeon in agreement with plan. [facility] Past Medical History Medical History HTN (hypertension) Hypercholesteremia Neuropathy Surgical History Surgical History Hx of colonoscopy Hx of cystoscopy Social History Social History Household Members: Unknown / Unable to assess Housing: Unknown / Unable to assess Smoking Status: Never smoker Use of substances other than those prescribed or required for medical reasons: No Currently Displaying Signs/Symptoms of Drug Intoxication Withdrawal: No Advance Directives: No Advance Directives Information Provided: Yes Do you have thoughts of harming others: None Do you have a plan to hurt others: No Plan Recently lost weight without trying: Unsure service: No Meds Allergies Allergy/AdvReac Type Severity Reaction Status Date / Time No Known Allergies Allergy Mild N/A Verified 03/30/20 19:20 Home Medications Medication Instructions Recorded Confirmed Type atorvastatin 1 tab PO DAILY 03/30/20 03/30/20 History lidocaine-prilocaine 1 appl TOPICAL BEDTIME 03/30/20 03/30/20 History lisinopril 1 tab PO DAILY 03/30/20 03/30/20 History oxybutynin chloride 1 tab PO DAILY 03/30/20 03/30/20 History pregabalin [Lyrica] 1 cap PO BID 03/30/20 03/30/20 History tamsulosin 1 cap PO DAILY 03/30/20 03/30/20 History Exam Exam Date and Time: April 01, 2020 1539 Height,Weight and Vital Signs: Height 5 ft 10 in Weight 55.9 kg Last Vital Signs Temp 99.1 F 04/01/20 14:21 Pulse 97 04/01/20 14:21 Resp 18 04/01/20 14:21 BP 139/67 04/01/20 13:19 Pulse Ox 98 04/01/20 14:21 Pertinent Lab Results Pertinent Lab Results: Laboratory Tests 03/30/20 03/30/20 03/30/20 20:52 20:52 20:52 WBC 9.5 RBC 4.87 Hgb 13.0 L Hct 40.6 L MCV 83.4 MCH 26.7 L MCHC 32.0 RDW 14.0 Plt Count 123 L MPV 11.5 Immature Gran % (Auto) 0.3 Neut % (Auto) 85.0 H Lymph % (Auto) 6.4 L [place] % (Auto) 7.6 Eos % (Auto) 0.5 Baso % (Auto) 0.2 Lymph # (Auto) 0.6 L [place] # (Auto) 0.7 Eos # (Auto) 0.1 Baso # (Auto) 0.0 Abs Immat Gran (auto) 0.03 Absolute Neuts (auto) 8.1 Absolute Nucleated RBC 0.000 Nucleated RBC % (auto) 0.0 Smear Tech's Comments VERIFIED PT 13.5 H INR 1.1 APTT 31.3 Sodium 140 Potassium 4.5 Chloride 104 Carbon Dioxide 25 Anion Gap 16 BUN 21 H Creatinine 1.23 Estim Creat Clear Calc 35.9 Estimated GFR 56 Random Glucose 119 H Calcium 8.8 Total Bilirubin 1.3 H AST 30 ALT 16 Alkaline Phosphatase 105 Total Creatine Kinase 74 B-Natriuretic Peptide Total Protein 7.2 Albumin 4.1 Urine Color Urine Appearance Urine pH Ur Specific [place] Urine Protein Urine Glucose (UA) Urine Ketones Urine Blood Urine Nitrite Ur Leukocyte Esterase Coronavirus (PCR) Influenza Type A (PCR) Influenza Type B (PCR) RSV RNA Qual (PCR) Blood Type Antibody Screen 03/30/20 03/30/20 03/31/20 21:08 22:14 04:38 WBC 8.8 RBC 4.62 Hgb 12.3 L Hct 38.5 L MCV 83.3 MCH 26.6 L MCHC 31.9 RDW 13.9 Plt Count 124 L MPV 11.7 Immature Gran % (Auto) 0.3 Neut % (Auto) 72.5 Lymph % (Auto) 17.5 L [place] % (Auto) 8.6 Eos % (Auto) 1.0 Baso % (Auto) 0.1 Lymph # (Auto) 1.6 [place] # (Auto) 0.8 Eos # (Auto) 0.1 Baso # (Auto) 0.0 Abs Immat Gran (auto) 0.03 Absolute Neuts (auto) 6.4 Absolute Nucleated RBC 0.000 Nucleated RBC % (auto) 0.0 Smear Tech's Comments PT INR APTT Sodium Potassium Chloride Carbon Dioxide Anion Gap BUN Creatinine Estim Creat Clear Calc Estimated GFR Random Glucose Calcium Total Bilirubin AST ALT Alkaline Phosphatase Total Creatine Kinase B-Natriuretic Peptide Total Protein Albumin Urine Color YELLOW Urine Appearance CLEAR Urine pH 7.0 Ur Specific [place] 1.020 Urine Protein NEG Urine Glucose (UA) NEG Urine Ketones NEG Urine Blood NEG Urine Nitrite NEG Ur Leukocyte Esterase NEG Coronavirus (PCR) NEGATIVE Influenza Type A (PCR) NEGATIVE Influenza Type B (PCR) NEGATIVE RSV RNA Qual (PCR) NEGATIVE Blood Type Antibody Screen 03/31/20 03/31/20 03/31/20 04:38 07:48 10:23 WBC RBC Hgb Hct MCV MCH MCHC RDW Plt Count MPV Immature Gran % (Auto) Neut % (Auto) Lymph % (Auto) [place] % (Auto) Eos % (Auto) Baso % (Auto) Lymph # (Auto) [place] # (Auto) Eos # (Auto) Baso # (Auto) Abs Immat Gran (auto) Absolute Neuts (auto) Absolute Nucleated RBC Nucleated RBC % (auto) Smear Tech's Comments PT 14.2 H INR 1.2 H APTT Sodium 142 Potassium 3.9 Chloride 109 H Carbon Dioxide 24 Anion Gap 13 BUN 17 H Creatinine 0.88 Estim Creat Clear Calc 50.2 Estimated GFR > 60 Random Glucose 93 Calcium 8.4 Total Bilirubin AST ALT Alkaline Phosphatase Total Creatine Kinase B-Natriuretic Peptide 82 Total Protein Albumin Urine Color Urine Appearance Urine pH Ur Specific [place] Urine Protein Urine Glucose (UA) Urine Ketones Urine Blood Urine Nitrite Ur Leukocyte Esterase Coronavirus (PCR) Influenza Type A (PCR) Influenza Type B (PCR) RSV RNA Qual (PCR) Blood Type Antibody Screen 04/01/20 12:29 WBC RBC Hgb Hct MCV MCH MCHC RDW Plt Count MPV Immature Gran % (Auto) Neut % (Auto) Lymph % (Auto) [place] % (Auto) Eos % (Auto) Baso % (Auto) Lymph # (Auto) [place] # (Auto) Eos # (Auto) Baso # (Auto) Abs Immat Gran (auto) Absolute Neuts (auto) Absolute Nucleated RBC Nucleated RBC % (auto) Smear Tech's Comments PT INR APTT Sodium Potassium Chloride Carbon Dioxide Anion Gap BUN Creatinine Estim Creat Clear Calc Estimated GFR Random Glucose Calcium Total Bilirubin AST ALT Alkaline Phosphatase Total Creatine Kinase B-Natriuretic Peptide Total Protein Albumin Urine Color Urine Appearance Urine pH Ur Specific [place] Urine Protein Urine Glucose (UA) Urine Ketones Urine Blood Urine Nitrite Ur Leukocyte Esterase Coronavirus (PCR) Influenza Type A (PCR) Influenza Type B (PCR) RSV RNA Qual (PCR) Blood Type O Positive Antibody Screen NEGATIVE Airway Mallampati Class: III TM Dist: >3cm Denture: Lower Loose/Missing/Broken Teeth: Yes Heart: RRR, no murmurs on auscultation, hx negative for heart murmurs Lungs: upper airway gurgling, lung sounds clear Other: vitiligo Assessment and Plan Assessment Anesthesia Assessment: Anesthesia Plan Discussed Final Anesthetic Review NPO: Yes ASA Class: III Final Preanesthetic Review: No Changes in Pt Med Stat, Meds/Allgs Chart Re viewed, Consent Obtained/Reviewed and Anes Risks/Benef Reviewed Patient Risk: High Procedure Risk: Intermediate Anesthetic Plan Anesthetic Plan: Spinal and Regional Block Disposition: Standard PACU
--- NOTE | 2020-04-01 15:48 | MHC.CLN ---
RE: CONSULT PT IS MODERATELY MALNOURISHED WHEN DIET TO ADVANCE RECOMMEND ADDING ENSURE BID TO INCREASE KCALS SEE ALSO CLINICAL NUTRITION ASSESSMENT
--- NOTE | 2020-04-01 16:02 | MHC.SHP ---
Pre-Procedural Eval Section A The patient is an INPATIENT: Yes Changes since office visit: Yes Patient answered all questions; No Cold of Flu in the past 2 weeks, No New Medical Problems and No Changes in Medication The History & Physical has been completed within 30 days and I have reviewed it.: Yes Section B Chief Complaint: hip fracture Allergies: Allergies Allergy/AdvReac Type Severity Reaction Status Date / Time No Known Allergies Allergy Mild N/A Verified 03/30/20 19:20 Plan I have reviewed the history and physical and performed a pertinent physical examination on my patient. No changes have occurred unless specified.
--- NOTE | 2020-04-01 16:02 | PM.OP ---
Brief Operative Note Date of Service: 04/01/20 Pre-op diagnosis: right femoral neck fracture Post-op diagnosis: same Procedure: right hip hemiarthroplasty Implants: jj accolade 2 #4 with +0 51 bipolar Surgeon: Gavin Cooper MD Anesthesia: regional and spinal Estimated blood loss (mL): 100 Tourniquet time (min): 0 IV fluids (mL): 800 Pathology: other Condition: stable Disposition: PACU
--- NOTE | 2020-04-01 16:56 | PC.NURSE ---
[facility]ETHES[facility] PROVIDER CHAN BLEDSOE AT BEDSIDE AWARE INTERMITTENT SHIVERING ELEVATED TEMPERATURE. PER M.D. TEMPERATURE IMPROVED SINCE PREOP. PER M.D. MAY TRANSFER TO INPATIENT UNIT.
--- NOTE | 2020-04-01 17:16 | OP_ITS ---
SURGEON: Gavin Cooper MD INDICATIONS: This is an 84-year-old gentleman with a displaced right femoral neck fracture, consented to undergo hemiarthroplasty. PREOPERATIVE DIAGNOSIS: Right femoral neck fracture. POSTOPERATIVE DIAGNOSIS: Right femoral neck fracture. PROCEDURE PERFORMED: Right hip hemiarthroplasty. ESTIMATED BLOOD LOSS: 100 mL. COMPLICATIONS: None known. ANESTHESIA: Regional and spinal. ASSISTANTS: CHINO Christensen SPECIMENS: FLUIDS: 800. PROCEDURE IN DETAIL: The patient was brought to the operating room, placed in the left lateral decubitus position. All bony prominences were well padded. He was prepped and draped in standard sterile fashion. Time-out was called to identify proper site, proper procedure, proper surgeon. IV antibiotics per weight was administered. I began by making a curvilinear incision over the posterolateral aspect of the greater trochanter. Dissection was taken down to the tensor fascia which was incised in line with the incision. I identified the piriformis and the medial circumflex vessels. These were appeared intact. They were cauterized and a full-thickness capsulotomy was performed and the displaced neck fracture was visualized. I did clean up cut and then removed the head in entirety with a corkscrew and measured a 51 on the back table. I then used a SendTask cutter to sequentially broached up to a 4 and then trialed a 4 plus 0, 51 bipolar. I was happy with the stability and I trialed a -3, but was less happy with the stability; therefore, I placed +0. I then removed the broaches and I irrigated copiously. Then, placed my final implant. We trialed with a +0, -3 and was happiest with a +0. Final +0 bipolar was placed. Hip was taken through range of motion, was stable at all ranges. I then irrigated copiously through the 3 minute iodine soak, closed the capsule with FiberWire, and then the tensor fascia with running Quill and then the Amadou fascia and subcu and the skin with emilia. The patient was placed in sterile dressing, awakened from sedation and brought to recovery room in stable condition. There were no known complications. Please note, I had a long discussion with the daughter. The patient was mentating less lucidly prior to surgery and secretion with heavy cough was noted. We discussed the risk of pneumonia even postoperative ; however, we were able to do this under spinal anesthesia, and so he did not require intubation. GRAFT OR IMPLANTS: [place] Accolate 2 #4 with a +0, 51 bipolar. Gavin Cooper MD NE/SRIKANTH / [id number]
--- NOTE | 2020-04-01 17:19 | XR_ITS ---
EXAMINATION: XR PELVIS CLINICAL INFORMATION: Status post right hip hemiarthroplasty COMPARISON: 03/30/2020 TECHNIQUE: AP view of the pelvis. FINDINGS: Since the prior exam which demonstrated a right femoral neck fracture, patient has undergone right hip hemiarthroplasty which appears to be an good position. Surgical emilia remain in place XR/XR pelvis 1-2V IMPRESSION: Excellent appearance is status post right hemiarthroplasty
[2020-04-01] MEDS: Dextrose 5 % and 0.45 % NaCl 1,000 ML 80 ML IVCONT (17:52)
[2020-04-02] VITALS (7 sets, daily range): BP systolic 114–162; BP diastolic 63–90; PULSE 62–102; RESP 16–21; TEMP 36.2–37.4; O2SAT 95–97
--- NOTE | 2020-04-02 | XR_ITS ---
EXAMINATION: XR CHEST CLINICAL INFORMATION: Toxic/metabolic encephalopathy COMPARISON: Chest 03/31/2020 TECHNIQUE: Frontal view of the chest was obtained. FINDINGS: The lungs are well-expanded without acute pneumonic process. Heart size and pulmonary vascularity is normal. No gross bony abnormality seen. XR/XR chest 1V IMPRESSION: Unremarkable chest exam.
[2020-04-02] MEDS: Dextrose 5 % and 0.45 % NaCl 1,000 ML 80 ML IVCONT ×2 (05:28→19:11)
[2020-04-02 06:48] LABS: Anion Gap 12 (12-20); Blood Urea Nitrogen 23 mg/dL (9-16); Calcium 8.1 mg/dL (8.4-10.2); Carbon Dioxide 25 mmol/L (22-29); Chloride 106 mmol/L (96-108); Creatinine Clr Calc Pharmacy 59.8; Estimated Glomerular Filt Rate > 60; Glucose Fasting 162 mg/dL (60-99); Hematocrit 34.5 % (42-52); Imm Gran Abs Auto 0.02 X10*3/uL (0.00-0.03); Imm Gran Pct Auto 0.2 % (0.0-0.4); Lymphocytes Absolute Auto 0.5 X10*3/uL (1.2-4.9); Lymphocytes Percent Auto 6.4 % (20-40); MANUAL DIFF FLAG SCAN; Mean Corpuscular HGB Conc 31.9 g/dl (31.0-36.0); Mean Corpuscular Hemoglobin 26.3 pg (27.0-33.0); Mean Corpuscular Volume 82.3 fL (80-98); Mean Platelet Volume 11.6 fL (9.4-12.4); Monocytes Absolute Auto 0.9 X10*3/uL (0.1-1.2); Neutrophils Absolute Auto 7.1 X10*3/uL (2.0-8.3); Neutrophils Percent Auto 83.4 % (45-73); Platelet Count 119 X10*3/uL (160-400); Potassium 3.8 mmol/l (3.3-5.1); Red Blood Count 4.19 X10*6/uL (4.60-5.80); Red Cell Distribution Width 13.9 % (11.0-16.0); SCAN SMEAR FLAG 1; Sodium 139 mmol/L (135-145); White Blood Count 8.5 X10*3/uL (4.8-10.8)
--- NOTE | 2020-04-02 07:44 | P.PNOP_ITS ---
Subjective Subjective Date of Service: 04/02/20 Interval history: POD1 s/p rt hip hemiarthroplasty. Pt. resting comfortably in bed. No overnight events. Physical Exam Vital Signs: Vital Signs: Last Vital Signs Temp 97.6 F 04/02/20 04:28 Pulse 75 04/02/20 04:28 Resp 18 04/02/20 04:28 BP 130/72 04/02/20 04:28 Pulse Ox 95 04/02/20 04:28 Body Mass Index 17.6 Const: General: cooperative, healthy appearing and no acute distress Resp: Effort & Inspection: normal respiratory effort and able to speak in complete sentences Cardio: Rate: regular rate Peripheral pulses: Peripheral pulses 2+ throughout GI: Palpation (GI): Soft to palpation Skin: Lesions: no lesions Rashes: no rashes Extrem: Other: No ecchymosis, redness, or drainage. Bandage is clean dry and intact. NVI Progress Note: A&P Assessment and plan (1) Status post hip hemiarthroplasty: Status: Acute Assessment and Plan: Continue pain mgmnt Begin Lovenox 30mg SQ BID for dvt ppx begin PT for rt hip hemiarthroplasty Dispo planning-Pending PT eval, pain mgmnt Fall Risk Details Current Medications: Current Medications Generic Name Dose Route Start Last Admin Trade Name Freq PRN Reason Stop Dose Admin Acetaminophen 650 mg 03/30/20 22:46 Acetaminophen 325 Mg Tablet PO Q6H PRN Pain, Mild (Pain Scale 1-3) Albuterol/Ipratropium 3 ml 03/31/20 11:16 Albuterol/Iprat 2.5/0.5mg 3 Ml Ampul.Neb INHALE RQ4H PRN Shortness of Breath Atorvastatin Calcium 10 mg 03/31/20 09:00 04/01/20 08:45 Atorvastatin Calcium 10 Mg Tablet PO Not Given DAILY JONN Celecoxib 200 mg 04/01/20 21:00 04/01/20 20:03 Celecoxib 200 Mg Capsule PO Not Given BID JONN Docusate Sodium 100 mg 03/31/20 09:00 04/01/20 08:45 Docusate Sodium 100 Mg Capsule PO Not Given DAILY JONN Enoxaparin Sodium 30 mg 04/02/20 13:00 Enoxaparin Sodium 30 Mg/0.3 Ml Syringe SUBCUT Q12H JONN Hydromorphone HCl 0.25 mg 04/01/20 17:19 Hydromorphone Hcl 0.5 Mg/0.5 Ml Syringe IVPUSH Q4H PRN Pain, Severe (Pain Scale 7-10) Dextrose/Sodium Chloride 1,000 mls @ 80 mls/hr 04/01/20 17:19 04/02/20 05:28 D51/2ns IVCONT 80 mls/hr .[id number] JONN Administration Lisinopril 10 mg 03/31/20 09:00 04/01/20 08:45 Lisinopril 10 Mg Tablet PO Not Given DAILY [facility] Protocol Naloxone HCl 0.2 mg 04/01/20 17:19 Naloxone Hcl 0.4 Mg/Ml Vial IVPUSH Q2M PRN Excessive sedation or RR < 8 Ondansetron HCl 4 mg 03/30/20 22:46 Ondansetron Hcl 4 Mg/2 Ml Vial IVPUSH Q8H PRN Nausea and Vomiting Oxybutynin Chloride 5 mg 03/31/20 09:00 04/01/20 08:45 Oxybutynin Chloride Er 5 Mg Tab.Er.24 PO Not Given DAILY [facility] Oxycodone HCl 5 mg 04/01/20 17:19 Oxycodone Hcl Immed Release 5 Mg Tablet PO Q4H PRN Pain, Mild (Pain Scale 1-3) Pregabalin 150 mg 03/31/20 09:00 04/01/20 20:04 Pregabalin 150 Mg Capsule PO Not Given BID [facility] Sodium Chloride 3 ml 03/31/20 00:00 04/01/20 23:33 0.9 % Sodium Chloride Flush 3 Ml Syringe IVFLUSH Not Given QSHIFT [facility] Sodium Chloride 3 ml 04/02/20 00:00 04/01/20 23:33 0.9 % Sodium Chloride Flush 3 Ml Syringe IVFLUSH Not Given QSHIFT [facility] Tamsulosin HCl 0.4 mg 03/31/20 09:00 04/01/20 08:46 Tamsulosin Hcl 0.4 Mg Capsule PO Not Given DAILY [facility] Time Spent With Patient Time: Total time spent is greater than 50% in coordination of care (as documented) at patient's floor/unit and/or counseling patient: Time with patient: less than 15 minutes
[2020-04-02 08:13] LABS: SLIDE REVIEW VERIFIED
--- NOTE | 2020-04-02 09:59 | PC.NURSE ---
Morning medications held due to patient difficulty swallowing, Dr. Griffin made aware. Order for CXR
--- NOTE | 2020-04-02 11:22 | HO.POSTANES ---
Post Anesthesia Evaluation Post Anesthesia Evaluation Vital Signs: Vital Signs Temp Pulse Resp BP Pulse Ox 04/02/20 09:33 102 H 162/90 H 95 04/02/20 07:45 99.3 F 102 H 18 162/90 H 95 04/02/20 04:28 97.6 F 75 18 130/72 95 04/01/20 23:34 99.2 F 74 18 141/68 H 96 Anesthesia: Spinal Mental Status: Awake Pain Control: Satisfactory Nausea/Vomiting: None Hydration: Adequate Anesthesia-Related Issues: No Anes. Related Issues
[2020-04-02] MEDS: Enoxaparin Sodium 30 MG/0.3 ML SYRINGE SUBCUT (12:11)
--- NOTE | 2020-04-02 13:15 | HO.PM.IMPN ---
Subjective Subjective Date of Service: 04/03/20 Interval History: Metabolic toxic encephalopathy probably related to surgery related sedation. Review of Systems Seems more awake this morning denies any chest pain or shortness of breath able to answer simple questions Follow simple commands Physical Exam Vital Signs: Vital Signs: Last Vital Signs Temp 97.7 F 04/02/20 12:08 Pulse 72 04/02/20 12:08 Resp 16 04/02/20 12:08 BP 139/68 04/02/20 12:08 Pulse Ox 96 04/02/20 12:08 Body Mass Index 17.6 Constitutional: Seems more awake and alert and calm. Cvs: rrr, [id number] , no murmur res: clear to auscultation ,no rhonchii or wheezing abd: no rebound or guarding ,nt, bs present. ext pulses present , no cyanosis neuro: perrla nonfocal. moves all extermities Objective Data Current Medications Generic Name Dose Route Start Last Admin Trade Name Freq PRN Reason Stop Dose Admin Acetaminophen 650 mg 03/30/20 22:46 Acetaminophen 325 Mg Tablet PO Q6H PRN Pain, Mild (Pain Scale 1-3) Albuterol/Ipratropium 3 ml 03/31/20 11:16 Albuterol/Iprat 2.5/0.5mg 3 Ml Ampul.Neb INHALE RQ4H PRN Shortness of Breath Atorvastatin Calcium 10 mg 03/31/20 09:00 04/02/20 09:58 Atorvastatin Calcium 10 Mg Tablet PO Not Given DAILY JONN Celecoxib 200 mg 04/01/20 21:00 04/02/20 09:58 Celecoxib 200 Mg Capsule PO Not Given BID JONN Docusate Sodium 100 mg 03/31/20 09:00 04/02/20 09:59 Docusate Sodium 100 Mg Capsule PO Not Given DAILY JONN Enoxaparin Sodium 30 mg 04/02/20 13:00 04/02/20 12:11 Enoxaparin Sodium 30 Mg/0.3 Ml Syringe SUBCUT 30 mg Q12H JONN Administration Hydromorphone HCl 0.25 mg 04/01/20 17:19 Hydromorphone Hcl 0.5 Mg/0.5 Ml Syringe IVPUSH Q4H PRN Pain, Severe (Pain Scale 7-10) Dextrose/Sodium Chloride 1,000 mls @ 80 mls/hr 04/01/20 17:19 04/02/20 10:17 D51/2ns IVCONT 80 mls/hr .[id number] COUNT INCLUDES THE [facility] Infusion Lisinopril 10 mg 03/31/20 09:00 04/02/20 09:59 Lisinopril 10 Mg Tablet PO Not Given DAILY [facility] Protocol Naloxone HCl 0.2 mg 04/01/20 17:19 Naloxone Hcl 0.4 Mg/Ml Vial IVPUSH Q2M PRN Excessive sedation or RR < 8 Ondansetron HCl 4 mg 03/30/20 22:46 Ondansetron Hcl 4 Mg/2 Ml Vial IVPUSH Q8H PRN Nausea and Vomiting Oxybutynin Chloride 5 mg 03/31/20 09:00 04/02/20 09:59 Oxybutynin Chloride Er 5 Mg Tab.Er.24 PO Not Given DAILY [facility]CLUDES [facility] Oxycodone HCl 5 mg 04/01/20 17:19 Oxycodone Hcl Immed Release 5 Mg Tablet PO Q4H PRN Pain, Mild (Pain Scale 1-3) Pregabalin 150 mg 03/31/20 09:00 04/02/20 09:59 Pregabalin 150 Mg Capsule PO Not Given BID COUNT INCLUDES [facility] Sodium Chloride 3 ml 03/31/20 00:00 04/02/20 09:58 0.9 % Sodium Chloride Flush 3 Ml Syringe IVFLUSH Not Given QSHIFT COUNT INCLUDES [facility] Sodium Chloride 3 ml 04/02/20 00:00 04/02/20 09:58 0.9 % Sodium Chloride Flush 3 Ml Syringe IVFLUSH Not Given QSHIFT COUNT INCLUDES [facility] Tamsulosin HCl 0.4 mg 03/31/20 09:00 04/02/20 09:59 Tamsulosin Hcl 0.4 Mg Capsule PO Not Given DAILY [facility]CLUD[facility] Labs CBC & Chem 7: 04/03/20 06:01 04/03/20 06:01 Assessment and Plan (1) Status post hip hemiarthroplasty: Status: Acute (2) Closed displaced fracture of right femoral neck: Status: Acute (3) Fall: Status: Acute Assessment and Plan: 84 year old gentleman with history of neuropathy is admitted due to right hip fracture related to mechanical fall 1. Right closed displaced fracture of right femoral neck from mechanical fall management with Tyelenol and Morphine ,s/p surgery day2 Seems more awake and could able to answer simple question and follow simple commands. Continue to monitor, speech and swallow evaluation, cxr: Negative 2. Fall- secondary to mechanical in the setting of chronic severe neuropathy Physical therapy evaluation after surgery 3. Hypertension: contnue lisinopril DVT prophylaxis: SCD, heparin or Lovenox after surgery
--- NOTE | 2020-04-02 15:55 | MHC.CM.PN ---
Addendum entered by Beth Woodson RN 04/02/20 16:03: PT GIVEN ORIGINAL AND 3 COPIES, COPY UPLAODED TO [employer] AND PLACED IN CHART. Original Note: CM OFFERED TO COMPLETE HCP WITH PT EARLIER IN SHIFT, PT REPORTED VIA [employer] THAT PT WOULD LIKE HIS DAUGHTER JELLY BRAVO HIS HCP AND WHEN ASKED ABOUT AN ALTERNATE PT REPORTED HE WOULD LIKE HIS JOSH BELLO HIS ALTERNATE. CM TYPED UP PTS HCP AND RETURNED WITH [employer] AND REVIEWED HCP, PT IN AGREEMENT THIS IS CORRECT, PT DID HAVE DIFFICULTY SIGNING HOWEVEVER DID THE BEST HE COULD. HCP: JELLY BRAVO (DAUGHTER) [phone] ALTERNATE: JOSH BELLO () [phone].
--- NOTE | 2020-04-02 16:10 | MHC.CM.PN ---
CM RECIEVED MESSAGE FROM PT'S DAUGHTER/HCP JELLY WHO WANTED TO KNOW WHAT THE PLAN FOR DISCHARGE WOULD BE, CM DISCUSSED RECOMMENDATION FOR SHORT TERM REHAB AND ASKED DAUGHTER FOR ANY PREFERNCES, PT'S DAUGHTER WILL SPEAK WITH HER MOTHER , PT'S AND HER SISTER TO DISCUSS TONIGHT AND CM WILL CALL DAUGHTER BACK ON 04/03/20. FAMILY AWARE CM TO START REFERRAL PROCESS TODAY AND PLACED REFERRALS FOR [facility] AND [facility] TO START DUE TO FAMILY WANTING PT TO BE CLOSED TO HOME AND DECREASE OF AVAILABLE BEDS. DAUGHTER SPOKE ABOUT [facility] [place] AND THAT [facility] WANT PT HOME AND REPORTS THAT THEY SAID PT WOULD QUALIFY FOR HOME SERVICES, CM TO FOLLOW UP IN AM OF 04/03/20.
[2020-04-02] MEDS: Pregabalin 150 MG CAPSULE PO (22:17)
[2020-04-02] MEDS: Celecoxib 200 MG CAPSULE PO (22:17)
[2020-04-03] MEDS: Enoxaparin Sodium 30 MG/0.3 ML SYRINGE SUBCUT ×2 (00:23→13:45)
[2020-04-03 03:34] VITALS: BP 118/65; PULSE 80; RESP 18; TEMP 37.6; O2SAT 95
[2020-04-03 06:26] LABS: MANUAL DIFF FLAG NO
[2020-04-03 06:55] LABS: Eosinophils Absolute Auto 0.1 X10*3/uL (0.0-0.4); Eosinophils Percent Auto 1.8 % (0-4); Hematocrit 31.5 % (42-52); Hemoglobin 10.2 g/dl (14.0-18.0); Imm Gran Abs Auto 0.04 X10*3/uL (0.00-0.03); Imm Gran Pct Auto 0.6 % (0.0-0.4); Lymphocytes Absolute Auto 0.9 X10*3/uL (1.2-4.9); Lymphocytes Percent Auto 11.7 % (20-40); Mean Corpuscular HGB Conc 32.4 g/dl (31.0-36.0); Mean Corpuscular Hemoglobin 26.7 pg (27.0-33.0); Mean Corpuscular Volume 82.5 fL (80-98); Mean Platelet Volume 11.9 fL (9.4-12.4); Monocytes Absolute Auto 0.8 X10*3/uL (0.1-1.2); Monocytes Percent Auto 11.2 % (2-11); Neutrophils Absolute Auto 5.4 X10*3/uL (2.0-8.3); Neutrophils Percent Auto 74.7 % (45-73); Platelet Count 118 X10*3/uL (160-400); Red Blood Count 3.82 X10*6/uL (4.60-5.80); Red Cell Distribution Width 13.9 % (11.0-16.0); White Blood Count 7.3 X10*3/uL (4.8-10.8)
[2020-04-03 07:17] LABS: Anion Gap 9 (12-20); Blood Urea Nitrogen 20 mg/dL (9-16); Calcium 7.8 mg/dL (8.4-10.2); Carbon Dioxide 26 mmol/L (22-29); Chloride 106 mmol/L (96-108); Creatinine Clr Calc Pharmacy 63.2; Estimated Glomerular Filt Rate > 60; Glucose Fasting 122 mg/dL (60-99); Potassium 3.5 mmol/l (3.3-5.1); Sodium 137 mmol/L (135-145)
[2020-04-03 08:21] VITALS: BP 136/65; PULSE 69; RESP 16; TEMP 37.3; O2SAT 97
[2020-04-03] MEDS: 0.9 % Sodium Chloride Flush 3 ML SYRINGE IVFLUSH ×2 (08:40→16:35)
[2020-04-03] MEDS: Atorvastatin Calcium 10 MG TABLET PO (08:46)
[2020-04-03] MEDS: Pregabalin 150 MG CAPSULE PO ×2 (08:46→21:17)
[2020-04-03] MEDS: Celecoxib 200 MG CAPSULE PO ×2 (08:47→21:17)
[2020-04-03] MEDS: Tamsulosin HCL 0.4 MG CAPSULE PO (08:47)
--- NOTE | 2020-04-03 09:45 | PC.RT ---
patient unable to do accapella for cpt. xray report says lungs are clear
[2020-04-03 09:46] VITALS: BP 136/65; PULSE 69; O2SAT 97
--- NOTE | 2020-04-03 09:49 | MHC.CM.PN ---
CM CALLED PT'S DAUGHTER/HCP JELLY TO GO OVER [facility] FOR STR FOR PT, MESSAGE LEFT WITH RETURN NUMBER.
--- NOTE | 2020-04-03 10:04 | PM.PNORT ---
Subjective Subjective Date of Service: 04/03/20 Principal diagnosis: s/p right hemiarthrplasty Interval history: POD 2 s/p right hip hemiarthroplasty No overnight events, resting in bed, nurse states patient has been to chair with assist Physical Exam Vital Signs: Vital Signs: Last Vital Signs Temp 99.2 F 04/03/20 08:21 Pulse 69 04/03/20 09:46 Resp 16 04/03/20 08:21 BP 136/65 04/03/20 09:46 Pulse Ox 97 04/03/20 09:46 Body Mass Index 17.6 Const: General: cooperative, healthy appearing and no acute distress Resp: Effort & Inspection: normal respiratory effort and able to speak in complete sentences Cardio: Rate: regular rate Peripheral pulses: Peripheral pulses 2+ throughout GI: Palpation (GI): Soft to palpation Skin: General skin exam: no rashes or lesions noted Extrem: Other: Right hip bandage intact, no erythema or edema, sensation and pulses present. Progress Note: A&P Assessment and plan (1) Status post hip hemiarthroplasty: Status: Acute Assessment and Plan: Continue pain mgmnt cont dvt ppx cont PT/OT for rt hip johanna. Dispo planning-per PT and medical clearance Fall Risk Details Current Medications: Current Medications Generic Name Dose Route Start Last Admin Trade Name Freq PRN Reason Stop Dose Admin Acetaminophen 650 mg 03/30/20 22:46 Acetaminophen 325 Mg Tablet PO Q6H PRN Pain, Mild (Pain Scale 1-3) Albuterol/Ipratropium 3 ml 03/31/20 11:16 Albuterol/Iprat 2.5/0.5mg 3 Ml Ampul.Neb INHALE RQ4H PRN Shortness of Breath Atorvastatin Calcium 10 mg 03/31/20 09:00 04/03/20 08:46 Atorvastatin Calcium 10 Mg Tablet PO 10 mg DAILY JONN Administration Celecoxib 200 mg 04/01/20 21:00 04/03/20 08:47 Celecoxib 200 Mg Capsule PO 200 mg BID JONN Administration Docusate Sodium 100 mg 03/31/20 09:00 04/03/20 08:47 Docusate Sodium 100 Mg Capsule PO Not Given DAILY JONN Enoxaparin Sodium 30 mg 04/02/20 13:00 04/03/20 00:23 Enoxaparin Sodium 30 Mg/0.3 Ml Syringe SUBCUT 30 mg Q12H JONN Administration Hydromorphone HCl 0.25 mg 04/01/20 17:19 Hydromorphone Hcl 0.5 Mg/0.5 Ml Syringe IVPUSH Q4H PRN Pain, Severe (Pain Scale 7-10) Lisinopril 10 mg 03/31/20 09:00 04/03/20 08:46 Lisinopril 10 Mg Tablet PO 10 mg DAILY JONN Administration Protocol Naloxone HCl 0.2 mg 04/01/20 17:19 Naloxone Hcl 0.4 Mg/Ml Vial IVPUSH Q2M PRN Excessive sedation or RR < 8 Ondansetron HCl 4 mg 03/30/20 22:46 Ondansetron Hcl 4 Mg/2 Ml Vial IVPUSH Q8H PRN Nausea and Vomiting Oxybutynin Chloride 5 mg 03/31/20 09:00 04/03/20 08:46 Oxybutynin Chloride Er 5 Mg Tab.Er.24 PO 5 mg DAILY JONN Administration Oxycodone HCl 5 mg 04/01/20 17:19 Oxycodone Hcl Immed Release 5 Mg Tablet PO Q4H PRN Pain, Mild (Pain Scale 1-3) Pregabalin 150 mg 03/31/20 09:00 04/03/20 08:46 Pregabalin 150 Mg Capsule PO 150 mg BID JONN Administration Sodium Chloride 3 ml 03/31/20 00:00 04/03/20 08:40 0.9 % Sodium Chloride Flush 3 Ml Syringe IVFLUSH 3 ml QSHIFT JONN Administration Sodium Chloride 3 ml 04/02/20 00:00 04/03/20 08:42 0.9 % Sodium Chloride Flush 3 Ml Syringe IVFLUSH Not Given QSHIFT JONN Tamsulosin HCl 0.4 mg 03/31/20 09:00 04/03/20 08:47 Tamsulosin Hcl 0.4 Mg Capsule PO 0.4 mg DAILY JONN Administration Time Spent With Patient Time: Total time spent is greater than 50% in coordination of care (as documented) at patient's floor/unit and/or counseling patient: Time with patient: less than 15 minutes
--- NOTE | 2020-04-03 11:11 | MHC.CM.PN ---
CM RECEIVED CALL FROM PT'S AND [id number] WHO WAS ASSISTING PT'S NONENGLISH SPEAKING WITH REQUEST REFERRRAL BE MADE TO [facility] FOR STR, PT HAS ALREADY BEEN ACCEPTED TO [facility] PENDING BED AVAILABILITY AND ARE FOLLOWING PT, YAK[facility] MELO ALSO FOLLOWING PT, PER PT'S PT NEEDS A STRAW FOR DRINKING AND FOOD CUT UP IN SMALL PIECES, CM TO NOTIFY NURSING. PT'S AND [id number] ALSO REPORTED AFTER PT IS DISCHARGED FROM REHAB HE WILL TRANSITION TO [facility], FAMILY AWARE OF PROCESS. CM TO CONTINUE TO FOLLOW PT FOR DISCHARGE NEEDS.
[2020-04-03 13:00] VITALS: BP 98/53; PULSE 63; RESP 17; TEMP 36.9; O2SAT 97
--- NOTE | 2020-04-03 14:48 | MHC.CLN ---
F/U 25% PO DIET RX: PUREED WITH HT LIQ-APPROPRIATE [employer] ADVISOR REC NOTED DIET 04/03 WILL START ENSURE BID TO INCREASE KCALS MONITOR PO
[2020-04-03 17:00] VITALS: BP 120/63; PULSE 73; RESP 18; TEMP 36.5; O2SAT 97
--- NOTE | 2020-04-03 18:07 | HO.PM.IMPN ---
Subjective Subjective Date of Service: 04/03/20 Interval History: Hypertension Review of Systems Patient seems to be more awake, denies any chest pain or shortness of breath or abdominal pain fever or chills Physical Exam Vital Signs: Vital Signs: Last Vital Signs Temp 98.4 F 04/03/20 13:00 Pulse 63 04/03/20 13:00 Resp 17 04/03/20 13:00 BP 98/53 L 04/03/20 13:00 Pulse Ox 97 04/03/20 13:00 Body Mass Index 17.6 Physical exam: Cvs: rrr, [id number] , no murmur res: clear to auscultation ,no rhonchii or wheezing abd: no rebound or guarding ,nt, bs present. ext pulses present , no cyanosis neuro: nonfocal. Objective Data Current Medications Generic Name Dose Route Start Last Admin Trade Name Freq PRN Reason Stop Dose Admin Acetaminophen 650 mg 03/30/20 22:46 Acetaminophen 325 Mg Tablet PO Q6H PRN Pain, Mild (Pain Scale 1-3) Albuterol/Ipratropium 3 ml 03/31/20 11:16 Albuterol/Iprat 2.5/0.5mg 3 Ml Ampul.Neb INHALE RQ4H PRN Shortness of Breath Atorvastatin Calcium 10 mg 03/31/20 09:00 04/03/20 08:46 Atorvastatin Calcium 10 Mg Tablet PO 10 mg DAILY JONN Administration Celecoxib 200 mg 04/01/20 21:00 04/03/20 08:47 Celecoxib 200 Mg Capsule PO 200 mg BID JONN Administration Docusate Sodium 100 mg 03/31/20 09:00 04/03/20 08:47 Docusate Sodium 100 Mg Capsule PO Not Given DAILY JONN Enoxaparin Sodium 30 mg 04/02/20 13:00 04/03/20 13:45 Enoxaparin Sodium 30 Mg/0.3 Ml Syringe SUBCUT 30 mg Q12H JONN Administration Hydromorphone HCl 0.25 mg 04/01/20 17:19 Hydromorphone Hcl 0.5 Mg/0.5 Ml Syringe IVPUSH Q4H PRN Pain, Severe (Pain Scale 7-10) Sodium Chloride 1,000 mls @ 80 mls/hr 04/03/20 18:15 Ns IVCONT .[id number] JONN Naloxone HCl 0.2 mg 04/01/20 17:19 Naloxone Hcl 0.4 Mg/Ml Vial IVPUSH Q2M PRN Excessive sedation or RR < 8 Ondansetron HCl 4 mg 03/30/20 22:46 Ondansetron Hcl 4 Mg/2 Ml Vial IVPUSH Q8H PRN Nausea and Vomiting Oxybutynin Chloride 5 mg 03/31/20 09:00 04/03/20 08:46 Oxybutynin Chloride Er 5 Mg Tab.Er.24 PO 5 mg DAILY JONN Administration Oxycodone HCl 5 mg 04/01/20 17:19 Oxycodone Hcl Immed Release 5 Mg Tablet PO Q4H PRN Pain, Mild (Pain Scale 1-3) Pregabalin 150 mg 03/31/20 09:00 04/03/20 08:46 Pregabalin 150 Mg Capsule PO 150 mg BID JONN Administration Sodium Chloride 3 ml 03/31/20 00:00 04/03/20 16:35 0.9 % Sodium Chloride Flush 3 Ml Syringe IVFLUSH 3 ml QSHIFT JONN Administration Sodium Chloride 3 ml 04/02/20 00:00 04/03/20 16:35 0.9 % Sodium Chloride Flush 3 Ml Syringe IVFLUSH Not Given QSHIFT JONN Tamsulosin HCl 0.4 mg 03/31/20 09:00 04/03/20 08:47 Tamsulosin Hcl 0.4 Mg Capsule PO 0.4 mg DAILY JONN Administration Labs CBC & Chem 7: 04/03/20 06:01 04/03/20 06:01 Assessment and Plan (1) Status post hip hemiarthroplasty: Status: Acute (2) Closed displaced fracture of right femoral neck: Status: Acute (3) Fall: Status: Acute Assessment and Plan: 84 year old gentleman with history of neuropathy is admitted due to right hip fracture related to mechanical fall 1. Right closed displaced fracture of right femoral neck from mechanical fall management with Tyelenol and Morphine ,s/p surgery day3 Seems more awake and could able to answer simple question and follow simple commands. Speech and Swallow recommended pureed diet Postop anemia 2. Fall- secondary to mechanical in the setting of chronic severe neuropathy Physical therapy evaluation after surgery 3. Hypertension:softer hold lisinopril and tamsulosin gentle hydration DVT prophylaxis: SCD, heparin or Lovenox after surgery
[2020-04-03] MEDS: 0.9 % Sodium Chloride 1,000 ML 80 ML IVCONT (18:42)
[2020-04-03 19:47] VITALS: BP 109/54; PULSE 62; RESP 18; TEMP 36.7; O2SAT 97
[2020-04-04 01:00] VITALS: BP 135/63; PULSE 71; RESP 18; TEMP 36.8; O2SAT 98
[2020-04-04] MEDS: Enoxaparin Sodium 30 MG/0.3 ML SYRINGE SUBCUT ×2 (02:10→12:44)
[2020-04-04 05:00] VITALS: BP 129/73; PULSE 84; RESP 18; TEMP 36.7; O2SAT 98
[2020-04-04 07:06] LABS: Basophils Percent Auto 0.2 % (0-2); Eosinophils Absolute Auto 0.2 X10*3/uL (0.0-0.4); Eosinophils Percent Auto 2.3 % (0-4); Hematocrit 32.5 % (42-52); Hemoglobin 10.3 g/dl (14.0-18.0); Imm Gran Abs Auto 0.05 X10*3/uL (0.00-0.03); Imm Gran Pct Auto 0.8 % (0.0-0.4); Lymphocytes Absolute Auto 0.6 X10*3/uL (1.2-4.9); Lymphocytes Percent Auto 9.2 % (20-40); MANUAL DIFF FLAG SCAN; Mean Corpuscular HGB Conc 31.7 g/dl (31.0-36.0); Mean Corpuscular Hemoglobin 26.6 pg (27.0-33.0); Mean Platelet Volume 10.9 fL (9.4-12.4); Monocytes Absolute Auto 0.7 X10*3/uL (0.1-1.2); Monocytes Percent Auto 10.6 % (2-11); Neutrophils Percent Auto 76.9 % (45-73); Platelet Count 145 X10*3/uL (160-400); Red Blood Count 3.87 X10*6/uL (4.60-5.80); Red Cell Distribution Width 13.7 % (11.0-16.0); SCAN SMEAR FLAG 1; White Blood Count 6.4 X10*3/uL (4.8-10.8)
[2020-04-04 07:26] VITALS: BP 118/61; PULSE 57; RESP 16; TEMP 36.7; O2SAT 98
[2020-04-04 07:33] LABS: Anion Gap 11 (12-20); Blood Urea Nitrogen 20 mg/dL (9-16); Calcium 7.6 mg/dL (8.4-10.2); Carbon Dioxide 24 mmol/L (22-29); Chloride 109 mmol/L (96-108); Estimated Glomerular Filt Rate > 60; Glucose Fasting 98 mg/dL (60-99); Potassium 3.7 mmol/l (3.3-5.1); Sodium 140 mmol/L (135-145)
[2020-04-04 07:57] LABS: SLIDE REVIEW VERIFIED
[2020-04-04 08:51] VITALS: BP 118/61; PULSE 57; O2SAT 98
--- NOTE | 2020-04-04 09:24 | P.PNOP_ITS ---
Subjective Subjective Date of Service: 04/04/20 Principal diagnosis: s/p right hemiarthrplasty Interval history: POD3 s/p rt hip hemiarthroplasty. Pt. resting comfortably in bed. No overnight events. Physical Exam 2 Vital Signs: Vital Signs: Last Vital Signs Temp 98.0 F 04/04/20 07:26 Pulse 57 04/04/20 08:51 Resp 16 04/04/20 07:26 BP 118/61 04/04/20 08:51 Pulse Ox 98 04/04/20 08:51 Body Mass Index 17.6 Const: General: cooperative, healthy appearing and no acute distress Resp: Effort & Inspection: normal respiratory effort and able to speak in complete sentences Cardio: Rate: regular rate Peripheral pulses: Peripheral pulses 2+ throughout GI: Palpation (GI): Soft to palpation Skin: Lesions: no lesions Rashes: no rashes Extrem: Other: rt hip no ecchymosis, redness, drainage. Dressing is clean dry and intact. Progress Note: A&P Assessment and plan (1) Status post hip hemiarthroplasty: Status: Acute Assessment and Plan: Continue pain mgmnt Continue Lovenox for dvt ppx Continue PT for rt hip hemiarthroplasty Dispo planning-Pending PT eval, pain mgmnt Fall Risk Details Current Medications: Current Medications Generic Name Dose Route Start Last Admin Trade Name Freq PRN Reason Stop Dose Admin Acetaminophen 650 mg 03/30/20 22:46 Acetaminophen 325 Mg Tablet PO Q6H PRN Pain, Mild (Pain Scale 1-3) Albuterol/Ipratropium 3 ml 03/31/20 11:16 Albuterol/Iprat 2.5/0.5mg 3 Ml Ampul.Neb INHALE RQ4H PRN Shortness of Breath Atorvastatin Calcium 10 mg 03/31/20 09:00 04/03/20 08:46 Atorvastatin Calcium 10 Mg Tablet PO 10 mg DAILY JONN Administration Celecoxib 200 mg 04/01/20 21:00 04/03/20 21:17 Celecoxib 200 Mg Capsule PO 200 mg BID JONN Administration Docusate Sodium 100 mg 03/31/20 09:00 04/03/20 08:47 Docusate Sodium 100 Mg Capsule PO Not Given DAILY JONN Enoxaparin Sodium 30 mg 04/02/20 13:00 04/04/20 02:10 Enoxaparin Sodium 30 Mg/0.3 Ml Syringe SUBCUT 30 mg Q12H JONN Administration Hydromorphone HCl 0.25 mg 04/01/20 17:19 Hydromorphone Hcl 0.5 Mg/0.5 Ml Syringe IVPUSH Q4H PRN Pain, Severe (Pain Scale 7-10) Sodium Chloride 1,000 mls @ 80 mls/hr 04/03/20 18:15 04/03/20 18:42 Ns IVCONT 80 mls/hr .[id number] JONN Administration Naloxone HCl 0.2 mg 04/01/20 17:19 Naloxone Hcl 0.4 Mg/Ml Vial IVPUSH Q2M PRN Excessive sedation or RR < 8 Ondansetron HCl 4 mg 03/30/20 22:46 Ondansetron Hcl 4 Mg/2 Ml Vial IVPUSH Q8H PRN Nausea and Vomiting Oxybutynin Chloride 5 mg 03/31/20 09:00 04/03/20 08:46 Oxybutynin Chloride Er 5 Mg Tab.Er.24 PO 5 mg DAILY JONN Administration Oxycodone HCl 5 mg 04/01/20 17:19 Oxycodone Hcl Immed Release 5 Mg Tablet PO Q4H PRN Pain, Mild (Pain Scale 1-3) Pregabalin 150 mg 03/31/20 09:00 04/03/20 21:17 Pregabalin 150 Mg Capsule PO 150 mg BID JONN Administration Sodium Chloride 3 ml 03/31/20 00:00 04/04/20 01:44 0.9 % Sodium Chloride Flush 3 Ml Syringe IVFLUSH Not Given QSHIFT JONN Sodium Chloride 3 ml 04/02/20 00:00 04/04/20 01:45 0.9 % Sodium Chloride Flush 3 Ml Syringe IVFLUSH Not Given QSHIFT JONN Tamsulosin HCl 0.4 mg 03/31/20 09:00 04/03/20 08:47 Tamsulosin Hcl 0.4 Mg Capsule PO 0.4 mg DAILY JONN Administration Time Spent With Patient Time: Total time spent is greater than 50% in coordination of care (as documented) at patient's floor/unit and/or counseling patient: Time with patient: less than 15 minutes
[2020-04-04] MEDS: Celecoxib 200 MG CAPSULE PO (09:40)
[2020-04-04] MEDS: Pregabalin 150 MG CAPSULE PO (09:40)
[2020-04-04] MEDS: Atorvastatin Calcium 10 MG TABLET PO (09:40)
[2020-04-04] MEDS: Tamsulosin HCL 0.4 MG CAPSULE PO (09:40)
[2020-04-04] MEDS: Docusate Sodium 100 MG CAPSULE PO (09:41)
[2020-04-04] MEDS: 0.9 % Sodium Chloride 1,000 ML 80 ML IVCONT (09:41)
--- NOTE | 2020-04-04 10:02 | MHC.CM.PN ---
Addendum entered by Beth Woodson RN 04/04/20 15:14: CM SPOKE WITH PT'S DAUGHTER/HCP JELLY TO UPDATE HER ON PT'S DISCHARGE. CM DID NOT RECEIVE CALL BACK FROM PT'S . Original Note: PER ATTENDING PT WILL BE READY FOR DISCHARGE TODAY, PT WILL TRANSFER TO [facility] AFTER 3PM PER ADMISSIONS [facility] VIA BLS TRANSPORT. CM LEFT MESSAGE FOR PT'S AND [id number] REGARDING DISCHARGE.
[2020-04-04 11:00] VITALS: BP 117/62; PULSE 69; RESP 17; TEMP 37; O2SAT 96
--- NOTE | 2020-04-04 12:38 | P.DS_ITS ---
DS: Providers Provider Date of Service: 04/04/20 Date of admission: 03/30/20 22:46 Primary care physician: Juan Antonio Hicks MD DS: Diagnosis Discharge Diagnosis (1) Status post hip hemiarthroplasty: Status: Acute DS: Medications Discharge Medications Home Medications: Home Medications Medication Instructions Recorded Confirmed atorvastatin 1 tab PO DAILY 03/30/20 03/30/20 lidocaine-prilocaine 1 appl TOPICAL BEDTIME 03/30/20 03/30/20 lisinopril 1 tab PO DAILY 03/30/20 03/30/20 oxybutynin chloride 1 tab PO DAILY 03/30/20 03/30/20 pregabalin [Lyrica] 1 cap PO BID 03/30/20 03/30/20 tamsulosin 1 cap PO DAILY 03/30/20 03/30/20 DS: Summary Hospital Course Hospital Course: 84 yo M with hx of HTN, HLD who presents to the hospital with fall and hip fracture. Pt sammarinese speaking only and is a poor historian. history is obtained from ED physician who obtained history from the pts daughter. 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 it appears that pt tripped today and fell, once he fell, he wasnt able to get up and therefore his who was with him called EMS. 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 Hospital Course problem knight section: 84 year old gentleman with history of neuropathy is admitted due to right hip fracture related to mechanical fall 1. Right closed displaced fracture of right femoral neck from mechanical fall received management with Tyelenol and Morphine ,s/p surgery day4 Seems more awake and could able to answer simple question and follow simple commands. Speech and Swallow recommended -initially pureed diet and then advanced ground/mech altered (NDD2) solids and nectar thick., continue crushed pills. 1:1 assistance or supervision at the least. Postop anemia-Monitor CBC in 1 week outpatient in rehab and further management as per rehab. 2. Hypertension:softer hold lisinopril . Assessment and plan time coordination knight spent 50 minutes. Time Spent with Patient Time attestation: Total time spent providing and/or coordinating discharge services: Discharge coordination time: Greater than 30 minutes Physical Exam Vital Signs: Vital Signs: Last Vital Signs Temp 98.6 F 04/04/20 11:00 Pulse 69 04/04/20 11:00 Resp 17 04/04/20 11:00 BP 117/62 04/04/20 11:00 Pulse Ox 96 04/04/20 11:00 Body Mass Index 17.6 Physical exam: Constitutional: Not in acute distress, sitting in chair and pleasant. Cvs: rrr, [id number] , no murmur res: clear to auscultation ,no rhonchii or wheezing abd: no rebound or guarding ,nt, bs present. ext pulses present , no cyanosis neuro: axo3 , nonfocal. DS: Data Data Completed and Pending Completed studies during hospitalization [Text1]: Pending at discharge 04/01/20 15:21 Surgical [PTH] Routine Labs on day of discharge: Laboratory Tests 03/30/20 03/30/20 03/30/20 20:52 20:52 20:52 WBC 9.5 RBC 4.87 Hgb 13.0 L Hct 40.6 L MCV 83.4 MCH 26.7 L MCHC 32.0 RDW 14.0 Plt Count 123 L MPV 11.5 Immature Gran % (Auto) 0.3 Neut % (Auto) 85.0 H Lymph % (Auto) 6.4 L [place] % (Auto) 7.6 Eos % (Auto) 0.5 Baso % (Auto) 0.2 Lymph # (Auto) 0.6 L [place] # (Auto) 0.7 Eos # (Auto) 0.1 Baso # (Auto) 0.0 Abs Immat Gran (auto) 0.03 Absolute Neuts (auto) 8.1 Absolute Nucleated RBC 0.000 Nucleated RBC % (auto) 0.0 Smear Tech's Comments VERIFIED PT 13.5 H INR 1.1 APTT 31.3 Sodium 140 Potassium 4.5 Chloride 104 Carbon Dioxide 25 Anion Gap 16 BUN 21 H Creatinine 1.23 Estim Creat Clear Calc 35.9 Estimated GFR 56 Random Glucose 119 H Fasting Glucose Calcium 8.8 Total Bilirubin 1.3 H AST 30 ALT 16 Alkaline Phosphatase 105 Total Creatine Kinase 74 B-Natriuretic Peptide Total Protein 7.2 Albumin 4.1 Urine Color Urine Appearance Urine pH Ur Specific [place] Urine Protein Urine Glucose (UA) Urine Ketones Urine Blood Urine Nitrite Ur Leukocyte Esterase Coronavirus (PCR) Influenza Type A (PCR) Influenza Type B (PCR) RSV RNA Qual (PCR) Blood Type Antibody Screen 03/30/20 03/30/20 03/31/20 21:08 22:14 04:38 WBC 8.8 RBC 4.62 Hgb 12.3 L Hct 38.5 L MCV 83.3 MCH 26.6 L MCHC 31.9 RDW 13.9 Plt Count 124 L MPV 11.7 Immature Gran % (Auto) 0.3 Neut % (Auto) 72.5 Lymph % (Auto) 17.5 L [place] % (Auto) 8.6 Eos % (Auto) 1.0 Baso % (Auto) 0.1 Lymph # (Auto) 1.6 [place] # (Auto) 0.8 Eos # (Auto) 0.1 Baso # (Auto) 0.0 Abs Immat Gran (auto) 0.03 Absolute Neuts (auto) 6.4 Absolute Nucleated RBC 0.000 Nucleated RBC % (auto) 0.0 Smear Tech's Comments PT INR APTT Sodium Potassium Chloride Carbon Dioxide Anion Gap BUN Creatinine Estim Creat Clear Calc Estimated GFR Random Glucose Fasting Glucose Calcium Total Bilirubin AST ALT Alkaline Phosphatase Total Creatine Kinase B-Natriuretic Peptide Total Protein Albumin Urine Color YELLOW Urine Appearance CLEAR Urine pH 7.0 Ur Specific [place] 1.020 Urine Protein NEG Urine Glucose (UA) NEG Urine Ketones NEG Urine Blood NEG Urine Nitrite NEG Ur Leukocyte Esterase NEG Coronavirus (PCR) NEGATIVE Influenza Type A (PCR) NEGATIVE Influenza Type B (PCR) NEGATIVE RSV RNA Qual (PCR) NEGATIVE Blood Type Antibody Screen 03/31/20 03/31/20 03/31/20 04:38 07:48 10:23 WBC RBC Hgb Hct MCV MCH MCHC RDW Plt Count MPV Immature Gran % (Auto) Neut % (Auto) Lymph % (Auto) [place] % (Auto) Eos % (Auto) Baso % (Auto) Lymph # (Auto) [place] # (Auto) Eos # (Auto) Baso # (Auto) Abs Immat Gran (auto) Absolute Neuts (auto) Absolute Nucleated RBC Nucleated RBC % (auto) Smear Tech's Comments PT 14.2 H INR 1.2 H APTT Sodium 142 Potassium 3.9 Chloride 109 H Carbon Dioxide 24 Anion Gap 13 BUN 17 H Creatinine 0.88 Estim Creat Clear Calc 50.2 Estimated GFR > 60 Random Glucose 93 Fasting Glucose Calcium 8.4 Total Bilirubin AST ALT Alkaline Phosphatase Total Creatine Kinase B-Natriuretic Peptide 82 Total Protein Albumin Urine Color Urine Appearance Urine pH Ur Specific [place] Urine Protein Urine Glucose (UA) Urine Ketones Urine Blood Urine Nitrite Ur Leukocyte Esterase Coronavirus (PCR) Influenza Type A (PCR) Influenza Type B (PCR) RSV RNA Qual (PCR) Blood Type Antibody Screen 04/01/20 04/02/20 04/02/20 12:29 05:53 05:53 WBC 8.5 RBC 4.19 L Hgb 11.0 L Hct 34.5 L MCV 82.3 MCH 26.3 L MCHC 31.9 RDW 13.9 Plt Count 119 L MPV 11.6 Immature Gran % (Auto) 0.2 Neut % (Auto) 83.4 H Lymph % (Auto) 6.4 L [place] % (Auto) 10.0 Eos % (Auto) 0.0 Baso % (Auto) 0.0 Lymph # (Auto) 0.5 L [place] # (Auto) 0.9 Eos # (Auto) 0.0 Baso # (Auto) 0.0 Abs Immat Gran (auto) 0.02 Absolute Neuts (auto) 7.1 Absolute Nucleated RBC 0.000 Nucleated RBC % (auto) 0.0 Smear Tech's Comments VERIFIED PT INR APTT Sodium 139 Potassium 3.8 Chloride 106 Carbon Dioxide 25 Anion Gap 12 BUN 23 H Creatinine 0.74 Estim Creat Clear Calc 59.8 Estimated GFR > 60 Random Glucose Fasting Glucose 162 H Calcium 8.1 L Total Bilirubin AST ALT Alkaline Phosphatase Total Creatine Kinase B-Natriuretic Peptide Total Protein Albumin Urine Color Urine Appearance Urine pH Ur Specific [place] Urine Protein Urine Glucose (UA) Urine Ketones Urine Blood Urine Nitrite Ur Leukocyte Esterase Coronavirus (PCR) Influenza Type A (PCR) Influenza Type B (PCR) RSV RNA Qual (PCR) Blood Type O Positive Antibody Screen NEGATIVE 04/03/20 04/03/20 04/04/20 06:01 06:01 06:49 WBC 7.3 6.4 RBC 3.82 L 3.87 L Hgb 10.2 L 10.3 L Hct 31.5 L 32.5 L MCV 82.5 84.0 MCH 26.7 L 26.6 L MCHC 32.4 31.7 RDW 13.9 13.7 Plt Count 118 L 145 L MPV 11.9 10.9 Immature Gran % (Auto) 0.6 H 0.8 H Neut % (Auto) 74.7 H 76.9 H Lymph % (Auto) 11.7 L 9.2 L [place] % (Auto) 11.2 H 10.6 Eos % (Auto) 1.8 2.3 Baso % (Auto) 0.0 0.2 Lymph # (Auto) 0.9 L 0.6 L [place] # (Auto) 0.8 0.7 Eos # (Auto) 0.1 0.2 Baso # (Auto) 0.0 0.0 Abs Immat Gran (auto) 0.04 H 0.05 H Absolute Neuts (auto) 5.4 5.0 Absolute Nucleated RBC 0.000 0.000 Nucleated RBC % (auto) 0.0 0.0 Smear Tech's Comments VERIFIED PT INR APTT Sodium 137 Potassium 3.5 Chloride 106 Carbon Dioxide 26 Anion Gap 9 L BUN 20 H Creatinine 0.70 Estim Creat Clear Calc 63.2 Estimated GFR > 60 Random Glucose Fasting Glucose 122 H Calcium 7.8 L Total Bilirubin AST ALT Alkaline Phosphatase Total Creatine Kinase B-Natriuretic Peptide Total Protein Albumin Urine Color Urine Appearance Urine pH Ur Specific [place] Urine Protein Urine Glucose (UA) Urine Ketones Urine Blood Urine Nitrite Ur Leukocyte Esterase Coronavirus (PCR) Influenza Type A (PCR) Influenza Type B (PCR) RSV RNA Qual (PCR) Blood Type Antibody Screen 04/04/20 06:49 WBC RBC Hgb Hct MCV MCH MCHC RDW Plt Count MPV Immature Gran % (Auto) Neut % (Auto) Lymph % (Auto) [place] % (Auto) Eos % (Auto) Baso % (Auto) Lymph # (Auto) [place] # (Auto) Eos # (Auto) Baso # (Auto) Abs Immat Gran (auto) Absolute Neuts (auto) Absolute Nucleated RBC Nucleated RBC % (auto) Smear Tech's Comments PT INR APTT Sodium 140 Potassium 3.7 Chloride 109 H Carbon Dioxide 24 Anion Gap 11 L BUN 20 H Creatinine 0.66 Estim Creat Clear Calc 67.0 Estimated GFR > 60 Random Glucose Fasting Glucose 98 Calcium 7.6 L Total Bilirubin AST ALT Alkaline Phosphatase Total Creatine Kinase B-Natriuretic Peptide Total Protein Albumin Urine Color Urine Appearance Urine pH Ur Specific [place] Urine Protein Urine Glucose (UA) Urine Ketones Urine Blood Urine Nitrite Ur Leukocyte Esterase Coronavirus (PCR) Influenza Type A (PCR) Influenza Type B (PCR) RSV RNA Qual (PCR) Blood Type Antibody Screen Discharge Plan Discharge Patient Disposition: Xfer SNF Referrals: [facility] [Other] (BLS TRANSPORTATION) [facility] [Outside] (SHORT TERM REHAB ) Elizabeth Case PA-C [Physician Paleologist] - (04/15/20 @11:00am) Discharge Medications: New acetaminophen 325 mg Tablet 650 mg PO Q6H PRN (Reason: Pain, Mild (Pain Scale 1-3)) Qty: 20 RF: 0 enoxaparin 30 mg/0.3 mL Syringe 30 mg subcut DAILY 30 Days Qty: 9 RF: 0 docusate sodium [Colace] 100 mg capsule 100 mg PO DAILY Qty: 30 RF: 0 senna 8.6 mg capsule 8.6 mg PO BEDTIME Qty: 30 RF: 0 Continued atorvastatin 10 mg tablet 1 tab PO DAILY RF: 0 lidocaine-prilocaine 2.5-2.5 % cream 1 appl topical BEDTIME RF: 0 tamsulosin 0.4 mg capsule 1 cap PO DAILY RF: 0 oxybutynin chloride 5 mg tablet extended release 24hr 1 tab PO DAILY RF: 0 pregabalin [Lyrica] 150 mg capsule 1 cap PO BID RF: 0 Held lisinopril 10 mg tablet 1 tab PO DAILY RF: 0 Hold Instructions: Resume on 04/09/20. Blood pressure is acceptable range without lisinopril, monitor blood pressure in rehab if blood pressure is consistently ab ove 140mmhg please add back lisinopril. Discharge Orders: Discharge Order (Routine); Ordered 04/04/20 Ordered By: Jimbo Griffin Diet: advance to usual diet, low fat, low cholesterol, low salt diet and other Activity on Discharge: As tolerated Stand Alone Forms: Patient Portal Discharge page Other Ambulatory Orders: Complete Blood Count no Diff (Routine) Timeframe: 1 Week Facility: [facility] - Location: Laboratory Ordered By: Jimbo Griffin Activity Restrictions/Additional Instructions: * Physical Therapy for Total hip arthroplasty: posterior precautions, gait t raining, ROM, strength * Limit stair climbing * No showering, no tub bath-keep dressing clean, dry and intact * No driving x6 weeks * Continue Lovenox tabs once a day x 4 weeks * Follow up with [facility] in 2 weeks Care Plan Goals: Restore function of right hip. Patient has anemia probable postop: Monitor H&H and in rehab in 1 week and further management as per rehab. htn: blood blood pressure is acceptable range, will hold lisinopril for now- consider adding lisinopril in a week or so if blood pressure is consistently above 140 mmHg In rehab. Speech and Swallow: Recommend UPGRADE ground/mech altered (NDD2) solids and nectar thick liquids, continue crushed pills. 1:1 assistance or supervision at the least. Health Concerns: None Plan of Treatment: Physical Therapy Pain management DVT prophylaxis
--- NOTE | 2020-04-04 13:11 | MHC.INPTTRAN ---
S/P surgery Is post op day 4 today. Aquacell dsg intact on right hip. Local edema only. Vague, forgetful at times. cooperative. OOB with max 2 assist. Remains very weak. Needs assit with eating. Is on mechanical ground with nectar thick liquids. Crush meds. Did well with meds today. Had small BM today. Had awan, removed at 0600 and has been incont urine. Lisinapril on hold for now, see orders. Mostly Japanese speaking Understands some Kazakh. thanks.
[2020-04-04] MEDS: Acetaminophen 325 MG TABLET 650 MG PO (13:24)
[2020-04-04 13:58] LABS: COVID-19 Test Negative (Negative)
== END 2020-04-04 15:38 | disposition skilled nursing facility (03) | DRG 522 ==
LOC: HO.ED 22:35 → HO.EDOVER 22:53 → HO.S3 03-31 11:33
PROVIDERS: Internal Medicine; Orthopaedic Surgery; Physician Assistant; Admitting Provider Internal Medicine; Emergency Provider Emergency Medicine Emergency Medical Services; PCP Internal Medicine; Visit Provider Internal Medicine
PROC: 0SRR0JA Replacement of Right Hip Joint, Femoral Surface with Synthetic Substitute, Uncemented, Open Approach (ICD-10-PCS; CPT 27125; principal; 2020-04-01 14:00)
DX: S72.001A Fracture of unspecified part of neck of right femur, initial encounter for closed fracture (principal); E44.0 Moderate protein-calorie malnutrition; Z68.1 Body mass index [BMI] 19.9 or less, adult; I10 Essential (primary) hypertension; D64.9 Anemia, unspecified; W19.XXXA Unspecified fall, initial encounter; Y93.9 Activity, unspecified; G62.9 Polyneuropathy, unspecified; Y92.009 Unspecified place in unspecified non-institutional (private) residence as the place of occurrence of the external cause; Y99.9 Unspecified external cause status; Z20.822 Contact with and (suspected) exposure to COVID-19; Z79.899 Other long term (current) drug therapy
CPT/HCPCS: 0241U; 36415; 70450; 71045; 71275; 72125; 72170; 73502; 80048; 80053; 81003; 82550; 83880; 85025; 85610; 85730; 86850; 86900; 86901; 87635; 88305; 88311; 92526; 92610; 93005; 96361; 96374; 96375; 97116; 97162; 97166; 97530; 97535; 99285; C1758; C1776; J0690; J1650; J2270; J2370; J2405; J3010; Q9967

== ENCOUNTER 2020-04-25 08:54 | Outpatient (REF) | payer MEDICARE, SELFPAY | END 2020-04-25 08:55 | disposition home or self-care (01) | LOC: HO.HOSX 08:54 | PROVIDERS: Visit Provider Physician Assistant | DX: Z47.1 Aftercare following joint replacement surgery (principal); Z48.02 Encounter for removal of sutures; Z96.641 Presence of right artificial hip joint | CPT/HCPCS: 99212 ==

== ENCOUNTER 2020-05-07 17:11 | Inpatient (IN) | payer MEDICARE, SELFPAY ==
[2020-05-07 17:27] VITALS: BP 141/67; PULSE 69; RESP 18; TEMP 37.2; O2SAT 98; BMI 19.5
--- NOTE | 2020-05-07 17:30 | ED_ITS ---
HPI - General Adult General Chief complaint: Weakness Stated complaint: GENERAL WEAKNESS,HYPOTENSION Time Seen by Provider: 05/07/20 17:14 Source: EMS Mode of arrival: EMS Limitations: other History of Present Illness HPI narrative: Patient is brought to emergency room via EMS. On 03/30/2020, patient had a fall, had a closed displaced fracture of the right femoral neck. Patient had surgery, discharged on April 04, sent to short-term rehab. According to EMS, the family states that the patient has been at home for 1 week, but the patient has been declining, not eating well, more lethargic. A visiting nurse went to see the patient, blood pressure was 80 systolic, when EMS arrived, the blood pressure was 100 systolic. Patient is poor historian, states that he has right hip pain and feels weak. MD complaint: Failure to thrive Related Data Home Medications Medication Instructions Recorded Confirmed atorvastatin 1 tab PO DAILY 03/30/20 03/30/20 lidocaine-prilocaine 1 appl TOPICAL BEDTIME 03/30/20 03/30/20 lisinopril 1 tab PO DAILY 03/30/20 03/30/20 oxybutynin chloride 1 tab PO DAILY 03/30/20 03/30/20 pregabalin [Lyrica] 1 cap PO BID 03/30/20 03/30/20 tamsulosin 1 cap PO DAILY 03/30/20 03/30/20 Previous Rx's Medication Instructions Recorded acetaminophen 650 mg PO Q6H PRN #20 tab 04/04/20 docusate sodium [Colace] 100 mg PO DAILY #30 cap 04/04/20 enoxaparin 30 mg SUBCUT DAILY 30 Days #9 ml 04/04/20 sennosides [senna] 8.6 mg PO BEDTIME #30 cap 04/04/20 Allergies Allergy/AdvReac Type Severity Reaction Status Date / Time No Known Allergies Allergy Mild N/A Verified 03/30/20 19:20 Review of Systems Review of Systems: Constitutional : Denies fever or chills ENT/Mouth : No ear pain, no sore throat, no difficulty swallowing Eyes: No Eye Pain, No Swelling, No Redness, No Foreign Body, No Discharge, No Vision Changes Cardiovascular : No Chest Pain, No SOB, No Dyspnea on Exertion, No Orthopnea, No Edema, No Palpitations Respiratory : No Cough, No Sputum, No Wheezing, No Smoke Exposure, No Dyspnea Gastrointestinal : No Nausea, No Vomiting, No Diarrhea, No Constipation, No abdominal Pain, No Hematochezia, No Melena Genitourinary : no irregular bleeding, No Dysuria, No Urinary Frequency, No Hematuria, No Urinary Incontinence, No Urgency, No Flank Pain, No Urinary Flow Changes, No Hesitancy Musculoskeletal : Complaining of chronic right hip pain, No Myalgias, No Joint Swelling Skin : No Skin Lesions, No rash Neuro : Denies dizziness or headache Psych : No Anxiety/Panic, No Depression Heme/Lymph: No Bruising, No Bleeding,No Lymphadenopathy Endocrine : No Polyuria, No Polydipsia, No Temperature Intolerance PMFSH Past Medical History Medical History Closed displaced fracture of right femoral neck Closed head injury Contusion of right chest wall Fall HTN (hypertension) Hypercholesteremia Neuropathy Surgical History Hx of colonoscopy Hx of cystoscopy Social History Social History Household Members: Unknown / Unable to assess Housing: Unknown / Unable to assess Smoking Status: Never smoker Advance Directives: No Advance Directives Information Provided: No service: No Physical Exam Vital Signs: Vital Signs: Last Vital Signs Temp 98.9 F 05/07/20 17:27 Pulse 69 05/07/20 20:02 Resp 14 05/07/20 20:02 BP 140/72 H 05/07/20 20:02 Pulse Ox 98 05/07/20 20:02 Body Mass Index 19.5 Course Course Course Narrative: Patient is being admitted for symptomatic UTI. Sepsis is not suspected at this time, patient discussed with our hospitalist Dr. Hewitt Medical Decision Making Lab Data Result diagrams: 05/07/20 18:51 05/07/20 19:36 Labs: Lab Results 05/07/20 05/07/20 05/07/20 Range/Units 18:51 18:51 18:51 WBC 8.5 (4.8-10.8) X10*3/uL RBC 5.11 D (4.60-5.80) X10*6/uL Hgb 13.5 L D (14.0-18.0) g/dl Hct 42.4 D (42-52) % MCV 83.0 (80-98) fL MCH 26.4 L (27.0-33.0) pg MCHC 31.8 (31.0-36.0) g/dl RDW 14.9 (11.0-16.0) % Plt Count 260 D (160-400) X10*3/uL MPV 10.5 (9.4-12.4) fL Immature Gran % (Auto) 0.5 H (0.0-0.4) % Neut % (Auto) 64.4 (45-73) % Lymph % (Auto) 22.3 (20-40) % [place] % (Auto) 8.1 (2-11) % Eos % (Auto) 4.3 H (0-4) % Baso % (Auto) 0.4 (0-2) % Lymph # (Auto) 1.9 (1.2-4.9) X10*3/uL [place] # (Auto) 0.7 (0.1-1.2) X10*3/uL Eos # (Auto) 0.4 (0.0-0.4) X10*3/uL Baso # (Auto) 0.0 (0.0-0.2) X10*3/uL Abs Immat Gran (auto) 0.04 H (0.00-0.03) X10*3/uL Absolute Neuts (auto) 5.5 (2.0-8.3) X10*3/uL Absolute Nucleated RBC 0.000 (0.0-0.012) X10*3/uL Nucleated RBC % (auto) 0.0 (0.0-0.2) /100WBC PT (10.8-13.0) SEC INR (0.9-1.1) Sodium (135-145) mmol/L Potassium (3.3-5.1) mmol/L Chloride (96-108) mmol/L Carbon Dioxide (22-29) mmol/L Anion Gap (12-20) BUN (9-16) mg/dL Creatinine (0.5-1.4) mg/dL Estim Creat Clear Calc Estimated GFR Random Glucose (60-115) mg/dL Lactic Acid 0.8 (0.5-2.0) mmol/L Calcium (8.4-10.2) mg/dL Total Bilirubin (0.0-1.0) mg/dL Direct Bilirubin (0.0-0.5) mg/dL AST (5-37) U/L ALT (0-40) U/L Alkaline Phosphatase (39-117) U/L Troponin I High Sens < 3.5 (<3.5-35.0) ng/L Total Protein (6.5-8.0) g/dL Albumin (3.5-5.0) g/dL Urine Color Urine Appearance Urine pH (5.0-8.0) Ur Specific [place] (1.005-1.025) Urine Protein (NEG-TRACE) MG/DL Urine Glucose (UA) (NEG) MG/DL Urine Ketones (NEG) MG/DL Urine Blood (NEG) Urine Nitrite (NEG) Ur Leukocyte Esterase (NEG) Urine RBC (0) /HPF Urine WBC (0-4) /HPF Ur Squamous Epith Cells /LPF Urine Bacteria /LPF 05/07/20 05/07/20 05/07/20 Range/Units 18:51 18:51 19:36 WBC (4.8-10.8) X10*3/uL RBC (4.60-5.80) X10*6/uL Hgb (14.0-18.0) g/dl Hct (42-52) % MCV (80-98) fL MCH (27.0-33.0) pg MCHC (31.0-36.0) g/dl RDW (11.0-16.0) % Plt Count (160-400) X10*3/uL MPV (9.4-12.4) fL Immature Gran % (Auto) (0.0-0.4) % Neut % (Auto) (45-73) % Lymph % (Auto) (20-40) % [place] % (Auto) (2-11) % Eos % (Auto) (0-4) % Baso % (Auto) (0-2) % Lymph # (Auto) (1.2-4.9) X10*3/uL [place] # (Auto) (0.1-1.2) X10*3/uL Eos # (Auto) (0.0-0.4) X10*3/uL Baso # (Auto) (0.0-0.2) X10*3/uL Abs Immat Gran (auto) (0.00-0.03) X10*3/uL Absolute Neuts (auto) (2.0-8.3) X10*3/uL Absolute Nucleated RBC (0.0-0.012) X10*3/uL Nucleated RBC % (auto) (0.0-0.2) /100WBC PT 13.1 H (10.8-13.0) SEC INR 1.1 (0.9-1.1) Sodium 133 L (135-145) mmol/L Potassium 4.8 (3.3-5.1) mmol/L Chloride 100 (96-108) mmol/L Carbon Dioxide 26 (22-29) mmol/L Anion Gap 12 (12-20) BUN 25 H (9-16) mg/dL Creatinine 0.80 (0.5-1.4) mg/dL Estim Creat Clear Calc 47.9 Estimated GFR > 60 Random Glucose 95 (60-115) mg/dL Lactic Acid (0.5-2.0) mmol/L Calcium 9.0 D (8.4-10.2) mg/dL Total Bilirubin 0.8 (0.0-1.0) mg/dL Direct Bilirubin 0.3 (0.0-0.5) mg/dL AST 23 (5-37) U/L ALT 16 (0-40) U/L Alkaline Phosphatase 109 (39-117) U/L Troponin I High Sens (<3.5-35.0) ng/L Total Protein 6.6 (6.5-8.0) g/dL Albumin 3.7 (3.5-5.0) g/dL Urine Color YELLOW Urine Appearance CLOUDY Urine pH 7.0 (5.0-8.0) Ur Specific [place] 1.015 (1.005-1.025) Urine Protein NEG (NEG-TRACE) MG/DL Urine Glucose (UA) NEG (NEG) MG/DL Urine Ketones NEG (NEG) MG/DL Urine Blood TRACE (NEG) Urine Nitrite POS H (NEG) Ur Leukocyte Esterase 3+ H (NEG) Urine RBC 5-9 H (0) /HPF Urine WBC 30-49 H (0-4) /HPF Ur Squamous Epith Cells 1+ /LPF Urine Bacteria 3+ /LPF ECG Data Attestation: I personally reviewed and interpreted this ECG as follows: (Sinus rhythm, heart rate 68, poor quality EKG, nonspecific T-wave changes, QTC 4 weight) Discharge Plan Discharge Clinical Impression: Symptomatic urinary tract infection Patient Disposition: Admitted As Inpatient
--- NOTE | 2020-05-07 18:17 | ECG_ITS ---
Test Reason : WEAKNESS Blood Pressure : / mmHG Vent. Rate : 068 BPM Atrial Rate : 068 BPM P-R Int : 148 ms QRS Dur : 116 ms QT Int : 384 ms P-R-T Axes : 068 -47 034 degrees QTc Int : 408 ms Artifact in tracing Normal sinus rhythm Left axis deviation Possible Lateral infarct , age undetermined Increased R/S ratio in V1, consider early transition or posterior infarct Abnormal ECG When compared with ECG of 30-MAR-2020 20:11, Right bundle branch block is no longer Present Referred By: Diane Self Electronically Signed By:JEREMY GOODMAN
[2020-05-07 19:01] LABS: Glucose Urine UA NEG (NEG); Leukocyte Esterase Urine 3+ (NEG); Nitrite Urine POS (NEG); Specific Gravity - Urine 1.015 (1.005-1.025); UACC Culture Trigger YES; Urine Blood TRACE (NEG); Urine Ketones NEG (NEG); Urine Protein NEG (NEG-TRACE)
[2020-05-07 19:02] LABS: MANUAL DIFF FLAG NO
[2020-05-07 19:07] LABS: Appearance Urine CLOUDY; Basophils Percent Auto 0.4 % (0-2); Color Urine YELLOW; Eosinophils Absolute Auto 0.4 X10*3/uL (0.0-0.4); Eosinophils Percent Auto 4.3 % (0-4); Hematocrit 42.4 % (42-52); Hemoglobin 13.5 g/dl (14.0-18.0); Imm Gran Abs Auto 0.04 X10*3/uL (0.00-0.03); Imm Gran Pct Auto 0.5 % (0.0-0.4); Lymphocytes Absolute Auto 1.9 X10*3/uL (1.2-4.9); Lymphocytes Percent Auto 22.3 % (20-40); Mean Corpuscular HGB Conc 31.8 g/dl (31.0-36.0); Mean Corpuscular Hemoglobin 26.4 pg (27.0-33.0); Mean Platelet Volume 10.5 fL (9.4-12.4); Monocytes Absolute Auto 0.7 X10*3/uL (0.1-1.2); Monocytes Percent Auto 8.1 % (2-11); Neutrophils Absolute Auto 5.5 X10*3/uL (2.0-8.3); Neutrophils Percent Auto 64.4 % (45-73); Platelet Count 260 X10*3/uL (160-400); Red Blood Count 5.11 X10*6/uL (4.60-5.80); Red Cell Distribution Width 14.9 % (11.0-16.0); White Blood Count 8.5 X10*3/uL (4.8-10.8)
[2020-05-07 19:08] LABS: Bacteria Urine 3+ /LPF; Squamous Epithelial Cell Urine 1+ /LPF; WBC Urine 30-49 /HPF (0-4)
[2020-05-07 19:13] LABS: INTERNATIONAL NORM RATIO 1.1 (0.9-1.1); Prothrombin Time 13.1 SEC (10.8-13.0)
[2020-05-07] MEDS: 0.9 % Sodium Chloride 1,000 ML 999 ML IVCONT ×2 (19:15→21:12)
[2020-05-07 19:37] LABS: Lactic Acid 0.8 mmol/L (0.5-2.0)
[2020-05-07 19:45] LABS: Troponin-I High Sensitivity < 3.5 ng/L (<3.5-35.0)
[2020-05-07 20:02] VITALS: BP 140/72; PULSE 69; RESP 14; O2SAT 98
[2020-05-07 20:06] LABS: Alanine Aminotransferase 16 U/L (0-40); Albumin Level 3.7 g/dL (3.5-5.0); Alkaline Phosphatase 109 U/L (39-117); Anion Gap 12 (12-20); Aspartate Amino Transferase 23 U/L (5-37); Bilirubin Direct 0.3 mg/dL (0.0-0.5); Bilirubin Total 0.8 mg/dL (0.0-1.0); Blood Urea Nitrogen 25 mg/dL (9-16); Carbon Dioxide 26 mmol/L (22-29); Chloride 100 mmol/L (96-108); Creatinine Clr Calc Pharmacy 47.9; Estimated Glomerular Filt Rate > 60; Glucose Random 95 mg/dL (60-115); Potassium 4.8 mmol/L (3.3-5.1); Sodium 133 mmol/L (135-145); Total Protein 6.6 g/dL (6.5-8.0)
[2020-05-07] MEDS: cefTRIAXone sodium 2 GM in 0.9 % Sodium Chloride 50 ML IV (21:11)
[2020-05-07 21:15] LABS: COVID-19 Test Negative (Negative); IDNOW Serial# 9DD0AD1C
--- NOTE | 2020-05-07 21:29 | P.HPHOSP_ITS ---
History of Present Illness Date of Service: 05/07/20 Chief Complaint: Generalized weakness 84-year-old male with a past medical history of hypertension, hyperlipidemia, recent admission to the hospital after a fall and hip fracture status post surgery subsequently discharged to the rehab; patient was discharged from the rehab few days ago and has been home and has visiting nurses at home. Presented to the hospital today with a chief complaint of generalized weakness. Patient is very hard of hearing and Sami-speaking only. Most of the history obtained from the patient's daughter, records, ER team. Reportedly patient has been having generalized weakness and not keeping up with the diet. Today the visiting nurses noted that his blood pressure was on the soft side being 80/50 subsequently spoke to the orthopedics clinic suggested to go to the ER for further evaluation. 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 Denies any nausea vomiting diarrhea. Review of all other systems is negative except mentioned above ER course: Per ER team patient exam was nonfocal. Noted to have UTI given ceftriaxone. Blood pressure was 140/72. Admitted to the hospital for further management [facility] Medical History (Updated 05/09/20 @ 11:21 by Jignesh Melo MD) Closed displaced fracture of right femoral neck Closed head injury Contusion of right chest wall Fall HTN (hypertension) Hypercholesteremia Neuropathy Surgical History Hx of colonoscopy Hx of cystoscopy Social History Household Members: Spouse Housing: Unknown / Unable to assess Smoking Status: Never smoker service: Yes Current occupational status: retired Meds Allergies Allergy/AdvReac Type Severity Reaction Status Date / Time No Known Allergies Allergy Mild N/A Verified 03/30/20 19:20 Active Medications: Current Medications Generic Name Dose Route Start Last Admin Trade Name Freq PRN Reason Stop Dose Admin Acetaminophen 650 mg 05/07/20 21:25 Acetaminophen 325 Mg Tablet PO Q6H PRN Pain, Mild (Pain Scale 1-3) Docusate Sodium 100 mg 05/08/20 09:00 Docusate Sodium 100 Mg Capsule PO BID ON LICENSE OF [facility] Enoxaparin Sodium 40 mg 05/07/20 21:30 Enoxaparin Sodium 40 Mg/0.4 Ml Syringe SUBCUT Q24H ON LICENSE OF [facility] Sodium Chloride 1,000 mls @ 999 mls/hr 05/07/20 21:05 05/07/20 21:12 Ns IVCONT 05/07/20 22:05 999 mls/hr .Q1H1M ONE Administration Dextrose/Sodium Chloride 1,000 mls @ 75 mls/hr 05/07/20 21:30 D51/2ns IVCONT .[id number] JONN Ceftriaxone Sodium 1 gm/ 50 mls @ 100 mls/hr 05/07/20 21:30 Sodium Chloride IV Q24H ON LICENSE OF [facility] Senna 17.2 mg 05/07/20 21:25 Sennosides 8.6 Mg Tablet PO BEDTIME PRN Constipation Sodium Chloride 3 ml 05/08/20 00:00 0.9 % Sodium Chloride Flush 3 Ml Syringe IVFLUSH QSHIFT ON LICENSE OF [facility] Home Medications Medication Instructions Recorded Confirmed Last Taken Type atorvastatin 10 mg PO DAILY 03/30/20 05/09/20 Unknown History lidocaine-prilocaine 1 appl TOPICAL BEDTIME 03/30/20 05/09/20 Unknown History lisinopril 10 mg PO DAILY 03/30/20 05/09/20 Unknown History oxybutynin chloride 5 mg PO DAILY 03/30/20 05/09/20 Unknown History pregabalin [Lyrica] 150 mg PO BID 03/30/20 05/09/20 Unknown History tamsulosin 0.4 mg PO DAILY 03/30/20 05/09/20 Unknown History Physical Exam Vital Signs and Narrative: Vital Signs: Last Vital Signs Temp 98.9 F 05/07/20 17:27 Pulse 69 05/07/20 20:02 Resp 14 05/07/20 20:02 BP 140/72 H 05/07/20 20:02 Pulse Ox 98 05/07/20 20:02 Body Mass Index 19.5 Gen: Appears be in no acute distress HEENT: NCAT, Moist mucosa. Pulmonary: Vesicular breath sounds, fair air entry CVS: Normal S1-S2 Abdomen: BS+, Soft, Nontender Extremities: Warm well perfused Neuro: Alert and awake. Results Labs CBC and Chem 7: 05/08/20 05:27 05/08/20 05:27 Labs: Laboratory Results - last 24 hr 05/07/20 05/07/20 05/07/20 18:51 18:51 18:51 MCV 83.0 MCH 26.4 L MCHC 31.8 RDW 14.9 Plt Count 260 D MPV 10.5 Immature Gran % (Auto) 0.5 H Neut % (Auto) 64.4 Lymph % (Auto) 22.3 Yates % (Auto) 8.1 Eos % (Auto) 4.3 H Baso % (Auto) 0.4 Lymph # (Auto) 1.9 Yates # (Auto) 0.7 Eos # (Auto) 0.4 Baso # (Auto) 0.0 Abs Immat Gran (auto) 0.04 H Absolute Neuts (auto) 5.5 Absolute Nucleated RBC 0.000 Nucleated RBC % (auto) 0.0 PT INR Anion Gap Estim Creat Clear Calc Estimated GFR Random Glucose Lactic Acid 0.8 Calcium Total Bilirubin Direct Bilirubin AST ALT Alkaline Phosphatase Troponin I High Sens < 3.5 Total Protein Albumin Urine Color Urine Appearance Urine pH Ur Specific [place] Urine Protein Urine Glucose (UA) Urine Ketones Urine Blood Urine Nitrite Ur Leukocyte Esterase Urine RBC Urine WBC Ur Squamous Epith Cells Urine Bacteria COVID-19 ([place]) COVID-19 Clin Com 05/07/20 05/07/20 05/07/20 18:51 18:51 19:36 MCV MCH MCHC RDW Plt Count MPV Immature Gran % (Auto) Neut % (Auto) Lymph % (Auto) Yates % (Auto) Eos % (Auto) Baso % (Auto) Lymph # (Auto) Yates # (Auto) Eos # (Auto) Baso # (Auto) Abs Immat Gran (auto) Absolute Neuts (auto) Absolute Nucleated RBC Nucleated RBC % (auto) PT 13.1 H INR 1.1 Anion Gap 12 Estim Creat Clear Calc 47.9 Estimated GFR > 60 Random Glucose 95 Lactic Acid Calcium 9.0 D Total Bilirubin 0.8 Direct Bilirubin 0.3 AST 23 ALT 16 Alkaline Phosphatase 109 Troponin I High Sens Total Protein 6.6 Albumin 3.7 Urine Color YELLOW Urine Appearance CLOUDY Urine pH 7.0 Ur Specific [place] 1.015 Urine Protein NEG Urine Glucose (UA) NEG Urine Ketones NEG Urine Blood TRACE Urine Nitrite POS H Ur Leukocyte Esterase 3+ H Urine RBC 5-9 H Urine WBC 30-49 H Ur Squamous Epith Cells 1+ Urine Bacteria 3+ COVID-19 ([place]) COVID-19 Clin Com 05/07/20 20:53 MCV MCH MCHC RDW Plt Count MPV Immature Gran % (Auto) Neut % (Auto) Lymph % (Auto) Yates % (Auto) Eos % (Auto) Baso % (Auto) Lymph # (Auto) Yates # (Auto) Eos # (Auto) Baso # (Auto) Abs Immat Gran (auto) Absolute Neuts (auto) Absolute Nucleated RBC Nucleated RBC % (auto) PT INR Anion Gap Estim Creat Clear Calc Estimated GFR Random Glucose Lactic Acid Calcium Total Bilirubin Direct Bilirubin AST ALT Alkaline Phosphatase Troponin I High Sens Total Protein Albumin Urine Color Urine Appearance Urine pH Ur Specific [place] Urine Protein Urine Glucose (UA) Urine Ketones Urine Blood Urine Nitrite Ur Leukocyte Esterase Urine RBC Urine WBC Ur Squamous Epith Cells Urine Bacteria COVID-19 ([place]) Negative COVID-19 Clin Com See Note Assessment and Plan (1) Symptomatic urinary tract infection: Status: Acute 84-year-old male with a past medical history of hypertension, hyperlipidemia, recent admission to the hospital for right femoral neck fracture status post surgery presented to the hospital with a chief complaint of generalized weakness. Noted to be having UTI. UTI: Continue ceftriaxone. Follow up cultures. Hypertension: Patient blood pressure was 80/50 at home as per the daughter. Currently improved to 1 40/72. Gentle IV fluids. Hold home antihypertensives for now. Monitor vitals and to be resumed on home medications accordingly. Recent hip surgery: Orthopedics consult for follow-up. Diet: During the last admission Speech and Swallow recommended -initially pureed diet and then advanced ground/mech altered (NDD2) solids and nectar thick., continue crushed pills. 1:1 assistance or supervision at the least. Will re-consult speech and swallow. Aspiration precautions Code status: DNI only. Discussed with the patient's daughter.
[2020-05-07 22:17] VITALS: BP 110/62; PULSE 69; RESP 16; TEMP 36.4; O2SAT 95
[2020-05-07] MEDS: Dextrose 5 % and 0.45 % NaCl 1,000 ML 75 ML IVCONT (23:07)
[2020-05-07] MEDS: 0.9 % Sodium Chloride Flush 3 ML SYRINGE IVFLUSH (23:08)
[2020-05-07] MEDS: Enoxaparin Sodium 40 MG/0.4 ML SYRINGE SUBCUT (23:08)
[2020-05-07 23:32] VITALS: BP 148/84; PULSE 77; RESP 18; TEMP 36.3; O2SAT 96
[2020-05-07] MEDS: Acetaminophen 325 MG TABLET 650 MG PO (23:32)
[2020-05-08 03:57] VITALS: BP 152/80; PULSE 68; RESP 18; TEMP 36.4; O2SAT 98
[2020-05-08 06:01] LABS: MANUAL DIFF FLAG NO
[2020-05-08 06:10] LABS: Basophils Percent Auto 0.4 % (0-2); Eosinophils Absolute Auto 0.4 X10*3/uL (0.0-0.4); Eosinophils Percent Auto 5.3 % (0-4); Hematocrit 37.9 % (42-52); Hemoglobin 11.9 g/dl (14.0-18.0); Imm Gran Abs Auto 0.04 X10*3/uL (0.00-0.03); Imm Gran Pct Auto 0.5 % (0.0-0.4); Lymphocytes Absolute Auto 1.4 X10*3/uL (1.2-4.9); Lymphocytes Percent Auto 18.8 % (20-40); Mean Corpuscular HGB Conc 31.4 g/dl (31.0-36.0); Mean Corpuscular Hemoglobin 26.2 pg (27.0-33.0); Mean Corpuscular Volume 83.5 fL (80-98); Mean Platelet Volume 11.2 fL (9.4-12.4); Monocytes Absolute Auto 0.7 X10*3/uL (0.1-1.2); Monocytes Percent Auto 9.4 % (2-11); Neutrophils Absolute Auto 4.8 X10*3/uL (2.0-8.3); Neutrophils Percent Auto 65.6 % (45-73); Platelet Count 212 X10*3/uL (160-400); Red Blood Count 4.54 X10*6/uL (4.60-5.80); Red Cell Distribution Width 14.9 % (11.0-16.0); White Blood Count 7.3 X10*3/uL (4.8-10.8)
[2020-05-08] MEDS: Acetaminophen 325 MG TABLET 650 MG PO ×2 (06:10→14:34)
[2020-05-08 06:28] LABS: Anion Gap 10 (12-20); Blood Urea Nitrogen 19 mg/dL (9-16); Calcium 8.6 mg/dL (8.4-10.2); Carbon Dioxide 26 mmol/L (22-29); Chloride 105 mmol/L (96-108); Creatinine Clr Calc Pharmacy 55.6; Estimated Glomerular Filt Rate > 60; Glucose Random 100 mg/dL (60-115); Potassium 4.4 mmol/L (3.3-5.1); Sodium 137 mmol/L (135-145)
--- NOTE | 2020-05-08 07:21 | PM.CNOR ---
History of Present Illness HPI Consult date: 05/08/20 Consult reason: joint pain Chief complaint: UTI Review of Systems Review of Systems: Yes all other systems are reviewed and are negative FOR[facility]LY [facility] Past Medical History Medical History Closed displaced fracture of right femoral neck Closed head injury Contusion of right chest wall Fall HTN (hypertension) Hypercholesteremia Neuropathy Surgical History Surgical History Hx of colonoscopy Hx of cystoscopy Social History Social History Household Members: Spouse Housing: Unknown / Unable to assess Do you presently have visiting nurse or other home services: Yes Smoking Status: Never smoker Use of substances other than those prescribed or required for medical reasons: No Have you been hit, kicked, punched, or otherwise hurt by someone within the past year? If so, by whom?: No Do you feel safe in your current relationship?: Yes Is there a partner from a previous relationship who is making you feel unsafe now?: No Are you made to feel afraid or neglected: No Advance Directives: No Advance Directives Information Provided: No Do you have thoughts of harming others: None Do you have a plan to hurt others: No Plan Recently lost weight without trying: No service: No Meds Allergies Allergy/AdvReac Type Severity Reaction Status Date / Time No Known Allergies Allergy Mild N/A Verified 03/30/20 19:20 Active Medications: Current Medications Generic Name Dose Route Start Last Admin Trade Name Kenanq PRN Reason Stop Dose Admin Acetaminophen 650 mg 05/07/20 21:25 05/08/20 06:10 Acetaminophen 325 Mg Tablet PO 650 mg Q6H PRN Administration Pain, Mild (Pain Scale 1-3) Docusate Sodium 100 mg 05/08/20 09:00 Docusate Sodium 100 Mg Capsule PO BID JONN Enoxaparin Sodium 40 mg 05/07/20 22:00 05/07/20 23:08 Enoxaparin Sodium 40 Mg/0.4 Ml Syringe SUBCUT 40 mg Q24H JONN Administration Dextrose/Sodium Chloride 1,000 mls @ 75 mls/hr 05/07/20 21:30 05/07/20 23:07 D51/2ns IVCONT 75 mls/hr .[id number] JONN Administration Ceftriaxone Sodium 1 gm/ 50 mls @ 100 mls/hr 05/08/20 20:00 Sodium Chloride IV Q24H [facility] Consult 1 each 05/07/20 21:53 Consult Rx Perform Med Rec MISCELLANE ONCE PRN Consult order Senna 17.2 mg 05/07/20 21:25 Sennosides 8.6 Mg Tablet PO BEDTIME PRN Constipation Sodium Chloride 3 ml 05/08/20 00:00 05/07/20 23:08 0.9 % Sodium Chloride Flush 3 Ml Syringe IVFLUSH 3 ml QSHIFT [facility] Administration Home Medications Medication Instructions Recorded Confirmed Last Taken Type atorvastatin 1 tab PO DAILY 03/30/20 03/30/20 Unknown History lidocaine-prilocaine 1 appl TOPICAL BEDTIME 03/30/20 03/30/20 Unknown History lisinopril 1 tab PO DAILY 03/30/20 03/30/20 Unknown History oxybutynin chloride 1 tab PO DAILY 03/30/20 03/30/20 Unknown History pregabalin [Lyrica] 1 cap PO BID 03/30/20 03/30/20 Unknown History tamsulosin 1 cap PO DAILY 03/30/20 03/30/20 Unknown History Physical Exam Vital Signs: Vital Signs: Last Vital Signs Temp 97.5 F 05/08/20 03:57 Pulse 68 05/08/20 03:57 Resp 18 05/08/20 03:57 BP 152/80 H 05/08/20 03:57 Pulse Ox 98 05/08/20 03:57 Body Mass Index 19.5 Const: General: cooperative, healthy appearing and no acute distress Resp: Effort & Inspection: normal respiratory effort and able to speak in complete sentences Cardio: Rate: regular rate Peripheral pulses: Peripheral pulses 2+ throughout GI: Palpation (GI): Soft to palpation Skin: Lesions: no lesions Rashes: no rashes Extrem: Other: Right hip no ecchymosis, redness, or edema. The incision site is well healed and approximated. I am able to perform a log roll with no discomfort and able to move the toes. Patient has difficulty following verbal commands with a high voltage electrician to move the extremity. Pedal pulse intact. Results Labs Result Diagrams: 05/08/20 05:27 05/08/20 05:27 Labs: Abnormal lab results 05/07/20 05/07/20 05/07/20 Range/Units 18:51 18:51 18:51 RBC (4.60-5.80) X10*6/uL Hgb 13.5 L D (14.0-18.0) g/dl Hct (42-52) % MCH 26.4 L (27.0-33.0) pg Immature Gran % (Auto) 0.5 H (0.0-0.4) % Lymph % (Auto) (20-40) % Eos % (Auto) 4.3 H (0-4) % Abs Immat Gran (auto) 0.04 H (0.00-0.03) X10*3/uL PT 13.1 H (10.8-13.0) SEC Sodium (135-145) mmol/L Anion Gap (12-20) BUN (9-16) mg/dL Urine Nitrite POS H (NEG) Ur Leukocyte Esterase 3+ H (NEG) Urine RBC 5-9 H (0) /HPF Urine WBC 30-49 H (0-4) /HPF 05/07/20 05/08/20 05/08/20 Range/Units 19:36 05:27 05:27 RBC 4.54 L (4.60-5.80) X10*6/uL Hgb 11.9 L (14.0-18.0) g/dl Hct 37.9 L (42-52) % MCH 26.2 L (27.0-33.0) pg Immature Gran % (Auto) 0.5 H (0.0-0.4) % Lymph % (Auto) 18.8 L (20-40) % Eos % (Auto) 5.3 H (0-4) % Abs Immat Gran (auto) 0.04 H (0.00-0.03) X10*3/uL PT (10.8-13.0) SEC Sodium 133 L (135-145) mmol/L Anion Gap 10 L (12-20) BUN 25 H 19 H (9-16) mg/dL Urine Nitrite (NEG) Ur Leukocyte Esterase (NEG) Urine RBC (0) /HPF Urine WBC (0-4) /HPF H & H 05/07/20 05/08/20 Range/Units 18:51 05:27 Hgb 13.5 L D 11.9 L (14.0-18.0) g/dl Hct 42.4 D 37.9 L (42-52) % Coagulation 05/07/20 Range/Units 18:51 INR 1.1 (0.9-1.1) All other labs normal. Assessment and Plan (1) Status post hip hemiarthroplasty: Status: Acute Mr. Sheridan is an 84 year old male who presented to the ED yesterday for generalized weakness, hypotension, and failure to thrive. He was found to have a UTI and is currently on Ceftriaxone. He is s/p right hip hemiarthroplasty with Dr. Cooper on 04/01/20. The patient should continue to work with P.T./O.T. and medicine should continue to follow for hypotension, failure to thrive, and generalized weakness. Procedures Date of Service Date of Service: 05/08/20
[2020-05-08 08:00] VITALS: BP 152/80; BP 156/70; PULSE 68; PULSE 76; RESP 16; TEMP 36.4; O2SAT 96; O2SAT 98
[2020-05-08] MEDS: Dextrose 5 % and 0.45 % NaCl 1,000 ML 75 ML IVCONT ×2 (08:37→22:24)
[2020-05-08 11:08] VITALS: BP 154/71; PULSE 76; RESP 15; TEMP 36.6; O2SAT 96
--- NOTE | 2020-05-08 11:22 | MHC.CM.PN ---
this is interview was conducted through pt's daughter/hcp - kaz as pt is disoriented to situation at this time. pt was recently at [facility] for str then dc'd home c vna which she cannot remember the name of at this time. at home he lives c his . he also has two daughters that live in the area and stop by daily. pt uses a walker c ambulation. despite the recommendation of PT for LTC or STR, pt's daughter would like pt to return home . the patient is active c the [place] and uses the [facility]. [facility]rosc[facility], he has a SW there by the name of tricia sparks. there are also two point people familiar c patient at [facility] - patti and khari at ph: [phone]. just yesterday, wednesday, an rn and pt person from [facility] visited pt in the home for evaluation for svcs to keep pt home. it is unclear exactly what is being offered, but kaz said the svcs would be m,w,f. kaz said she will be in contact c the [facility] and let us know what is being offered for in home svcs. at this time dc plan is home c previous vna , unknown at this time and svcs from the [facility]. cm to cont . to follow.
--- NOTE | 2020-05-08 12:17 | P.PNIM_ITS ---
Subjective Subjective Date of Service: 05/08/20 Interval History: Seen in f/u for UTI, no new complaint, no fever, culture is pending Review of Systems Gen: no fever Resp: no sob, no cough CV: no chest, no VEGA, no leg edema GI: No n/v, no abd pain Neuro: No confusion Physical Exam Vital Signs: Vital Signs: Last Vital Signs Temp 97.8 F 05/08/20 11:08 Pulse 76 05/08/20 11:08 Resp 15 05/08/20 11:08 BP 154/71 H 05/08/20 11:08 Pulse Ox 96 05/08/20 11:08 Body Mass Index 19.5 Constitutional Awake and Alert, No apparent distress Neck Supple, No lymphadenopathy Cardiovascular RRR, No M/R/G, S1 S2, No S3 S4, No pedal edema Respiratory Lungs clear, No respiratory distress Gastrointestinal Non tender, Non-distended Skin No rash, surgery site wound healing Neurological Alert & oriented x3 Psychological Appropriate affect Objective Data Current Medications Generic Name Dose Route Start Last Admin Trade Name Freq PRN Reason Stop Dose Admin Acetaminophen 650 mg 05/07/20 21:25 05/08/20 06:10 Acetaminophen 325 Mg Tablet PO 650 mg Q6H PRN Administration Pain, Mild (Pain Scale 1-3) Docusate Sodium 100 mg 05/08/20 09:00 05/08/20 08:37 Docusate Sodium 100 Mg Capsule PO Not Given BID JONN Enoxaparin Sodium 40 mg 05/07/20 22:00 05/07/20 23:08 Enoxaparin Sodium 40 Mg/0.4 Ml Syringe SUBCUT 40 mg Q24H JONN Administration Dextrose/Sodium Chloride 1,000 mls @ 75 mls/hr 05/07/20 21:30 05/08/20 08:37 D51/2ns IVCONT 75 mls/hr .[id number] JONN Administration Ceftriaxone Sodium 1 gm/ 50 mls @ 100 mls/hr 05/08/20 20:00 Sodium Chloride IV Q24H [facility] Pharm[facility] Consult 1 each 05/07/20 21:53 Consult Rx Perform Med Rec MISCELLANE ONCE PRN Consult order Senna 17.2 mg 05/07/20 21:25 Sennosides 8.6 Mg Tablet PO BEDTIME PRN Constipation Sodium Chloride 3 ml 05/08/20 00:00 05/08/20 08:37 0.9 % Sodium Chloride Flush 3 Ml Syringe IVFLUSH Not Given QSHIFT JONN Labs CBC & Chem 7: 05/08/20 05:27 05/08/20 05:27 Microbiology Microbiology Results: Microbiology 05/07/20 19:10 Urine clean catch - Clean Catch Midstream Urine Culture - Preliminary Culture in progress. Assessment and Plan (1) Symptomatic urinary tract infection: Status: Acute Assessment and Plan: 84-year-old male with a past medical history of hypertension, hyperlipidemia, recent admission to the hospital for right femoral neck fracture status post surgery presented to the hospital with a chief complaint of generalized weakness. Noted to be having UTI. UTI: Culture pending. Continue Ceftriaxone Hypertension: Isolated low BP, resolved. BP now 154/71 Recent hip surgery: Orthopedics consult for follow-up. Dysphagia:Speech is recommending ground/mech altered solids (NDD2) and nectar thick liquids with pills crushed in puree. Pt requires total assistance and universal aspiration precautions. PT recommend LTC vs home with 24 7 care as he has not been able to make any meaningful recovery from last hospitalization Code status: DNI only. Discussed with the patient's daughter.
--- NOTE | 2020-05-08 12:52 | MHC.CM.PN ---
there is a ? of [facility] involvement, kimberly hernandez, . a call was made to her, unable to leave message. cm to cont. to follow.
[2020-05-08 15:26] VITALS: BP 164/78; PULSE 71; RESP 16; TEMP 36.7; O2SAT 97
[2020-05-08] MEDS: 0.9 % Sodium Chloride Flush 3 ML SYRINGE IVFLUSH (15:36)
[2020-05-08 19:25] VITALS: BP 169/83; PULSE 84; RESP 18; TEMP 36.7; O2SAT 97
[2020-05-08] MEDS: cefTRIAXone sodium 1 GM in 0.9 % Sodium Chloride 50 ML IV (20:09)
[2020-05-08] MEDS: Docusate Sodium 100 MG CAPSULE PO (20:09)
--- NOTE | 2020-05-08 21:10 | PC.NURSE ---
CBI clamped this shift,awan draining freely,pink tinged urine,patient denies any discomfort
[2020-05-08] MEDS: Enoxaparin Sodium 40 MG/0.4 ML SYRINGE SUBCUT (21:22)
[2020-05-09] VITALS: BP 115/62; PULSE 67; RESP 16; TEMP 36.1; O2SAT 97
[2020-05-09 04:00] VITALS: BP 155/88; PULSE 84; RESP 18; TEMP 36.5; O2SAT 94
[2020-05-09 07:48] VITALS: BP 140/67; PULSE 64; RESP 17; TEMP 36.5; O2SAT 96
[2020-05-09] MEDS: Docusate Sodium 100 MG CAPSULE PO (08:26)
[2020-05-09] MEDS: 0.9 % Sodium Chloride Flush 3 ML SYRINGE IVFLUSH (08:26)
[2020-05-09 08:40] VITALS: BP 140/67; PULSE 64; O2SAT 96
--- NOTE | 2020-05-09 10:47 | HO.PM.IMPN ---
Subjective Subjective Date of Service: 05/09/20 Interval History: Seen in f/u for UTI, no new complaint, at baseline mental status, no fever, wants to go home Review of Systems Gen: no fever Resp: no sob, no cough CV: no chest, no VEGA, no leg edema GI: No n/v, no abd pain Neuro: some level of confusion, probably baseline Physical Exam Vital Signs: Vital Signs: Last Vital Signs Temp 97.7 F 05/09/20 07:48 Pulse 64 05/09/20 08:40 Resp 17 05/09/20 07:48 BP 140/67 H 05/09/20 08:40 Pulse Ox 96 05/09/20 08:40 Body Mass Index 19.5 General: AO, no acute distress Resp: CTA bilateral CVS: S1,S2,RRR GI: +BS, NT, no distention Skin: old hip surgery site, d/c/i Neuro: motor grossly intact Psych: appropriate affect Objective Data Current Medications Generic Name Dose Route Start Last Admin Trade Name Freq PRN Reason Stop Dose Admin Acetaminophen 650 mg 05/07/20 21:25 05/08/20 14:34 Acetaminophen 325 Mg Tablet PO 650 mg Q6H PRN Administration Pain, Mild (Pain Scale 1-3) Docusate Sodium 100 mg 05/08/20 09:00 05/09/20 08:26 Docusate Sodium 100 Mg Capsule PO 100 mg BID JONN Administration Enoxaparin Sodium 40 mg 05/07/20 22:00 05/08/20 21:22 Enoxaparin Sodium 40 Mg/0.4 Ml Syringe SUBCUT 40 mg Q24H JONN Administration Dextrose/Sodium Chloride 1,000 mls @ 75 mls/hr 05/07/20 21:30 05/08/20 22:24 D51/2ns IVCONT 75 mls/hr .[id number] JONN Administration Ceftriaxone Sodium 1 gm/ 50 mls @ 100 mls/hr 05/08/20 20:00 05/08/20 20:52 Sodium Chloride IV Infused Q24H J[facility] Infusion Pharmacy Consult 1 each 05/07/20 21:53 Consult Rx Perform Med Rec MISCELLANE ONCE PRN Consult order Senna 17.2 mg 05/07/20 21:25 Sennosides 8.6 Mg Tablet PO BEDTIME PRN Constipation Sodium Chloride 3 ml 05/08/20 00:00 05/09/20 08:26 0.9 % Sodium Chloride Flush 3 Ml Syringe IVFLUSH 3 ml QSHIFT JONN Administration Labs CBC & Chem 7: 05/08/20 05:27 05/08/20 05:27 Microbiology Microbiology Results: Microbiology 05/07/20 18:51 Blood - Venous Blood Culture - Preliminary No growth after 24 hours. 05/07/20 18:51 Blood - Venous Blood Culture - Preliminary No growth after 24 hours. 05/07/20 19:10 Urine clean catch - Clean Catch Midstream Urine Culture - Preliminary Culture in progress. Assessment and Plan (1) Symptomatic urinary tract infection: Status: Acute Assessment and Plan: 84-year-old male with a past medical history of hypertension, hyperlipidemia, recent admission to the hospital for right femoral neck fracture status post surgery presented to the hospital with a chief complaint of generalized weakness. Noted to be having UTI. UTI: Treated with IV ceftriaxone and will discharge with Oral Ceftin for total of 7 days Hypertension: Continue home dose of Lisinopril Recent hip surgery: Seen by Ortho, no intervention, Dysphagia:Speech is recommending ground/mech altered solids (NDD2) and nectar thick liquids with pills crushed in puree. Pt requires total assistance and universal aspiration precautions. PT recommend LTC vs home with 24 7 care as he has not been able to make any meaningful recovery from last hospitalization. Family is declining rehab. Therefore will go home.
--- NOTE | 2020-05-09 11:02 | MHC.CM.PN ---
Addendum entered by Lili Lindsay 05/09/20 11:30: CALL FROM [facility] HUMAN RESOURCE ANALYST, DEAN MORGAN . AGENCY IS NOW REFUSING TO ACCEPT PATIENT BACK, DEEMING HIM UNSAFE. DAUGHTER GREGORIO ([phone]) MADE AWARE. HOSPITALIST AWARE, AND PROTECTIVE SERVICES MADE AWARE. Original Note: PATIENT IS ACTIVE WITH [facility] [employer]. CALL TO [facility] @ [phone] CONFIRMING THAT PATIENT WILL RETURN HOME TODAY WITH THEIR SERVICES. DAUGHTER HERNAN ([phone]) AWARE OF PLAN AND WILL COMMUNICATE THIS TO THE PATIENT'S . PROTECTIVE SERVICES WORKER, JEANNA ([phone]) ALSO AWARE OF THE PLAN.
--- NOTE | 2020-05-09 11:15 | PM.DS ---
DS: Providers Provider Date of Service: 07/06/20 Date of admission: 05/07/20 21:17 Primary care physician: Unknown Physician Consults: 05/07/20 21:25 Consult to Orthopedics Routine Consulting Provider: Gavin Cooper Reason for consultation: recent hip surgery DS: Diagnosis Discharge Diagnosis (1) Symptomatic urinary tract infection: Status: Acute (2) Anemia: Status: Acute (3) HTN (hypertension): Status: Acute DS: Medications Discharge Medications Home Medications: Home Medications Medication Instructions Recorded Confirmed atorvastatin 10 mg PO DAILY 03/30/20 05/09/20 lidocaine-prilocaine 1 appl TOPICAL BEDTIME 03/30/20 05/09/20 lisinopril 10 mg PO DAILY 03/30/20 05/09/20 oxybutynin chloride 5 mg PO DAILY 03/30/20 05/09/20 pregabalin [Lyrica] 150 mg PO BID 03/30/20 05/09/20 tamsulosin 0.4 mg PO DAILY 03/30/20 05/09/20 Previous Rx's Medication Instructions Recorded acetaminophen 650 mg PO Q6H PRN #20 tab 04/04/20 docusate sodium [Colace] 100 mg PO DAILY #30 cap 04/04/20 enoxaparin 30 mg SUBCUT DAILY 30 Days #9 ml 04/04/20 sennosides [senna] 8.6 mg PO BEDTIME #30 cap 04/04/20 DS: Summary Hospital Course Hospital Course: 84-year-old male with a past medical history of hypertension, hyperlipidemia, recent admission to the hospital for right femoral neck fracture status post surgery presented to the hospital with a chief complaint of generalized weakness. Noted to be having UTI. UTI: Treated with IV ceftriaxone and will discharge with Oral Ceftin for total of 7 days Hypertension: Continue home dose of Lisinopril Recent hip surgery s/p repair on 04/01: Seen by Ortho, no intervention. H has been on Lovenox and should have completed prophylaxis by now and to follow up with Ortho Dysphagia:Speech is recommending ground/mech altered solids (NDD2) and nectar thick liquids with pills crushed in puree. Pt requires total assistance and universal aspiration precautions. PT recommend LTC vs home with 24 7 care as he has not been able to make any meaningful recovery from last hospitalization. Family is declining rehab. Therefore will go home. Time Spent with Patient Time attestation: Total time spent providing and/or coordinating discharge services: Discharge coordination time: Greater than 30 minutes Physical Exam Vital Signs: Vital Signs: Last Vital Signs Temp 97.7 F 05/09/20 07:48 Pulse 64 05/09/20 08:40 Resp 17 05/09/20 07:48 BP 140/67 H 05/09/20 08:40 Pulse Ox 96 05/09/20 08:40 Body Mass Index 19.5 General: AO, no acute distress Resp: CTA bilateral CVS: S1,S2,RRR GI: +BS, NT, no distention Skin: old hip surgery site, d/c/i Neuro: motor grossly intact Psych: appropriate affect . DS: Data Data Completed and Pending Completed studies during hospitalization [Text1]: Procedures Replacement of Right Hip Joint, Femoral Surface with Synthetic Substitute, Uncemented, Open Approach (03/30/20) Labs on day of discharge: Preliminary micro results at discharge 05/07/20 19:10 Urine Culture - Preliminary Urine clean catch - Clean Catch Midstream Gram negative regis 05/07/20 18:51 Blood Culture - Preliminary Blood - Venous No growth after 24 hours. 05/07/20 18:51 Blood Culture - Preliminary Blood - Venous No growth after 24 hours. Discharge Plan Discharge Anticipated Discharge Date/Time: 05/09/20 11:09 Patient Disposition: Home Health Service Discharge Diagnosis: Hip replacement, UTI. Referrals: [facility] [Other] (PROTECTIVE SERVICES BRICKLAYER'S ASSISTANT KELLEN WILL FOLLOW UP WITH PATIENT AND FAMILY) Physician,Unknown [Primary Care Provider] - Discharge Medications: New cefuroxime axetil 500 mg tablet 500 mg PO BID 7 Days Qty: 14 RF: 0 Continued atorvastatin 10 mg tablet 10 mg PO DAILY RF: 0 lidocaine-prilocaine 2.5-2.5 % cream 1 appl topical BEDTIME RF: 0 tamsulosin 0.4 mg capsule 0.4 mg PO DAILY RF: 0 lisinopril 10 mg tablet 10 mg PO DAILY RF: 0 Hold Instructions: Resume on 04/09/20. Blood pressure is acceptable range without lisinopril, monitor blood pressure in rehab if blood pressure is consistently above 140mmhg please add back lisinopril. oxybutynin chloride 5 mg tablet extended release 24hr 5 mg PO DAILY RF: 0 pregabalin [Lyrica] 150 mg capsule 150 mg PO BID RF: 0 acetaminophen 325 mg Tablet 650 mg PO Q6H PRN (Reason: Pain, Mild (Pain Scale 1-3)) Qty: 20 RF: 0 senna 8.6 mg capsule 8.6 mg PO BEDTIME Qty: 30 RF: 0 docusate sodium [Colace] 100 mg capsule 100 mg PO DAILY Qty: 30 RF: 0 Discontinued enoxaparin 30 mg/0.3 mL Syringe 30 mg subcut DAILY 30 Days Qty: 9 RF: 0 No Action levofloxacin 750 mg tablet 750 mg PO DAILY 5 Days Qty: 5 RF: 0 Discharge Orders: Discharge Order (Routine); Ordered 05/09/20 Ordered By: Jignesh Melo Diet: advance to usual diet Activity on Discharge: As tolerated Stand Alone Forms: Patient Portal Discharge page Care Plan Goals: Resolution of UTI and preventing rehospitalization. Health Concerns: Recurring UTI, hip fracture. Plan of Treatment: Take cefuroxime as recommended, follow-up with your primary care doctor within a week, call for appointment. Follow up with Orthopedic surgery. Assessment: Hip replacement, UTI. Discharge Date/Time: 05/09/20 15:30
[2020-05-09 11:36] VITALS: BP 163/76; PULSE 69; RESP 18; TEMP 37.4; O2SAT 97
--- NOTE | 2020-05-09 12:10 | MHC.CM.PN ---
ACTION AMBULANCE TRANSPORT ARRANGED FOR 1400 FROM [facility] TO PATIENT'S HOME. UNIT, RN, AND DAUGHTER HERNAN ([phone]) MADE AWARE. [facility] ALSO MADE AWARE THAT [facility] IS REFUSING TO PROVIDE SERVICES, PATIENT WILL NOT BE SAFE WITHOUT 24 HOUR CARE IN THE HOME. FAMILY IS REFUSING REHAB PLACEMENT, AND RECENTLY TOOK PATIENT OUT OF SNF AMA. HERNAN IS AWARE THAT A PROTECTIVE SERVICES AGENT WILL BE IN CONTACT SECONDARY TO PATIENT SAFETY CONCERNS. CASE TO BE DISCUSSED WITH STORE WORKER PRIOR TO PATIENT DC.
== END 2020-05-09 15:30 | disposition home health service (06) | DRG 690 ==
LOC: HO.ED 21:06 → HO.S3 21:35
PROVIDERS: Admitting Provider Hospitalist; Emergency Provider Emergency Medicine; Visit Provider Internal Medicine
DX: N39.0 Urinary tract infection, site not specified (principal); Z68.1 Body mass index [BMI] 19.9 or less, adult; I10 Essential (primary) hypertension; I95.9 Hypotension, unspecified; E78.5 Hyperlipidemia, unspecified; D64.9 Anemia, unspecified; R62.7 Adult failure to thrive; Z96.641 Presence of right artificial hip joint; Z20.822 Contact with and (suspected) exposure to COVID-19; Z79.899 Other long term (current) drug therapy
CPT/HCPCS: 36415; 80048; 80076; 81001; 81003; 83605; 83735; 84484; 85025; 85610; 87040; 87086; 87088; 87186; 87635; 92610; 93005; 96361; 96365; 96375; 97163; 97167; 97530; 97535; 99285; J0696; J1650

== ENCOUNTER 2020-06-06 09:07 | Outpatient (REF) | payer MEDICARE, SELFPAY | END 2020-06-06 09:08 | disposition home or self-care (01) | LOC: HO.HOSX 09:07 | PROVIDERS: Visit Provider Physician Assistant | DX: Z13.89 Encounter for screening for other disorder (principal) ==

== ENCOUNTER 2020-06-27 07:52 | Outpatient (REF) | payer MEDICARE, SELFPAY ==
--- NOTE | ~2020-06-27 | XR_ITS ---
EXAMINATION: XR PELVIS CLINICAL INFORMATION: Pain unspecified hip. COMPARISON: 04/01/2020 TECHNIQUE: 2 AP view of the pelvis. 1 view right hip. FINDINGS: Right hip arthroplasty stable in position and alignment. No findings to suggest hardware loosening or failure. Fzcuytpk-[id number]-[id number] left hip arthritis. No acute pelvic fractures. Extensive vascular calcification. Degenerative changes in the lower lumbar spine. XR/XR pelvis 1-2V IMPRESSION: Stable appearance of the right hip arthroplasty. No radiographic evidence of hardware failure or loosening. Jnlfgbux-[id number]-zpvdla left hip arthritis.
== END 2020-06-27 07:53 | disposition home or self-care (01) ==
LOC: HO.HOSX 07:52
PROVIDERS: Visit Provider Orthopaedic Surgery
DX: T84.84XA Pain due to internal orthopedic prosthetic devices, implants and grafts, initial encounter (principal); Z96.641 Presence of right artificial hip joint
CPT/HCPCS: 72170; 99212

== ENCOUNTER 2020-06-28 11:20 | Emergency (ER) | payer OTHER, MEDICARE, SELFPAY ==
--- NOTE | ~2020-06-28 | XR_ITS ---
EXAMINATION: XR CHEST CLINICAL INFORMATION: Fever COMPARISON: 04/02/2020 TECHNIQUE: Frontal view of the chest was obtained. FINDINGS: No acute pulmonary findings. No consolidation, pneumothorax or pleural effusion. Cardiac and mediastinal contours are normal. Vasculature is normal. No acute osseous findings. 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 Osteoarthritis is present in the acromioclavicular and glenohumeral joints. Mild degenerative spondylosis. XR/XR chest 1V IMPRESSION: No acute pulmonary findings.
[2020-06-28 11:41] VITALS: BP 132/74; BP 160/82; PULSE 73; RESP 22; TEMP 37.2; O2SAT 96; O2SAT 97; BMI 17.7
--- NOTE | 2020-06-28 11:45 | PC.NURSE ---
pt from home at bedside. Pt not answering questions easily, seems confused. states pt has been like this since he went to a SNF. Pt had hip replaced and was sent to SNF, has recently had and been treated for UTI. states she called EMS because pt does not seem better after treatment of his UTI, states he continues to be incontinent of urine about every 30 minutes.
[2020-06-28 11:47] VITALS: BP 132/74; PULSE 73; RESP 22; TEMP 37.2; O2SAT 96
--- NOTE | 2020-06-28 11:50 | ECG_ITS ---
Test Reason : FEVER Blood Pressure : / mmHG Vent. Rate : 067 BPM Atrial Rate : 067 BPM P-R Int : 134 ms QRS Dur : 126 ms QT Int : 396 ms P-R-T Axes : 039 -51 015 degrees QTc Int : 418 ms Poor data quality Normal sinus rhythm Left axis deviation Right bundle branch block Septal infarct , age undetermined Abnormal ECG When compared to the previous EKG of Right bundle branch block is now Present Referred By: Rebecca Alan Electronically Signed By:TIERRA TORRES MD
--- NOTE | 2020-06-28 11:51 | ED.FEVER ---
HPI - Fever General Chief Complaint: Fever Stated Complaint: fever Time Seen by Provider: 06/28/20 11:24 History of Present Illness HPI Narrative: 85-year-old male with a PMHx of HTN, HLD, recent hip fracture s/p hip surgery on 04/01/2020 bed-bound since procedure, BIBA from home s/p home VNA noted patient to be febrile 100.5. Patient with recent admission to our facility, tx for UTI, discharged on 05/09 , Hx obtained from who reports continued dysuria, urinary frequency since that admission, and dry cough. Denies chills, CP/SOB, abdominal pain, nausea/vomiting/diarrhea Of note patient with significant decline since hip surgery/SNF placement, Was also seen for orthopedic follow-up appointment yesterday and right hip hemiarthroplasty is intact Related Data Home Medications Medication Instructions Recorded Confirmed atorvastatin 10 mg PO DAILY 03/30/20 05/09/20 lidocaine-prilocaine 1 appl TOPICAL BEDTIME 03/30/20 05/09/20 lisinopril 10 mg PO DAILY 03/30/20 05/09/20 oxybutynin chloride 5 mg PO DAILY 03/30/20 05/09/20 pregabalin [Lyrica] 150 mg PO BID 03/30/20 05/09/20 tamsulosin 0.4 mg PO DAILY 03/30/20 05/09/20 Previous Rx's Medication Instructions Recorded acetaminophen 650 mg PO Q6H PRN #20 tab 04/04/20 docusate sodium [Colace] 100 mg PO DAILY #30 cap 04/04/20 senna 8.6 mg PO BEDTIME #30 cap 04/04/20 cefuroxime axetil 500 mg PO BID 7 Days #14 tab 05/09/20 levofloxacin 750 mg PO DAILY 5 Days #5 tab 06/28/20 Allergies Allergy/AdvReac Type Severity Reaction Status Date / Time No Known Allergies Allergy Mild N/A Verified 06/27/20 12:10 Review of Systems Review of Systems: Constitutional: + Fever, No Chills, No Fatigue, No Malaise Cardiovascular: No Chest Pain, No SOB, No Edema Respiratory: + Cough, No Sputum, No Wheezing, No Dyspnea Gastrointestinal: No Nausea, No Vomiting, No Diarrhea, No Constipation, No Abdominal pain Genitourinary: + Dysuria, + Urinary Frequency, No Hematuria, No Hesitancy Musculoskeletal: No joint pain, No Myalgias Skin: No Skin Lesions, No rash Neuro: +Chronic Weakness, No Numbness, No Paresthesias, No Loss of Consciousness, No Dizziness, No Headache Yes all other systems are reviewed and are negative [facility] Past Medical History Attestation statement: The following information was validated with the patient. Medical History Closed displaced fracture of right femoral neck Closed head injury Contusion of right chest wall Fall HTN (hypertension) Hypercholesteremia Neuropathy Surgical History Hx of colonoscopy Hx of cystoscopy Social History Social History Household Members: Spouse Housing: Unknown / Unable to assess Alcohol intake: never Smoking Status: Never smoker Use of substances other than those prescribed or required for medical reasons: No Advance Directives: Yes Advance Directives on File: Yes Advance Directives Date on File: 04/05/20 service: Yes Current occupational status: retired Physical Exam Vital Signs: Vital Signs: Last Vital Signs Temp 97.6 F 06/28/20 16:10 Pulse 87 06/28/20 16:10 Resp 22 H 06/28/20 16:10 BP 156/93 H 06/28/20 16:10 Pulse Ox 96 06/28/20 16:10 Body Mass Index 17.7 Const: General: no acute distress, alert and awake Nutritional Appearance: thin Limitations: no limitations HENMT: Head: Yes normal to inspection and Yes atraumatic Ears: hearing grossly normal bilaterally General nose exam: Normal external nose present Face and sinus: Yes normal facial exam Eyes: General: appearance normal, both eyes and all related structures EOM: EOMs intact bilaterally Neck: Neck: Yes normal visual inspection and Yes no meningeal signs Chest: Chest palpation & inspection: normal inspection of the chest Resp: Effort & Inspection: normal respiratory effort Auscultation: clear to auscultation bilaterally and no wheezes Cardio: Rate: regular rate Heart sounds: S1 normal heart sound present and S2 normal heart sound present GI: Inspection: Yes normal to inspection Palpation (GI): Soft to palpation, nontender, no guarding and not rigid Skin: Wounds: no wounds Neuro: Other: bedbound General: no meningeal signs Extrem: General: Yes normal to inspection and Yes no pedal edema Course Course Course Narrative: -no leukocytosis, H/H stable, lactic negative -UA infected will initiate IV Levaquin based on prior urine cultures, labs otherwise unremarkable. Patient does not meet sepsis criteria XR chest 1V IMPRESSION: No acute pulmonary findings -COVID-19/influenza/RSV negative > results discussed with patient and with lang interpreter. Will DC home with p.o. Levaquin and close PCP follow-up. Worrisome signs and symptoms and strict return precautions discussed. She verbalized understanding feel safe for discharge home MDM - Fever MDM Narrative Medical decision making narrative: 85-year-old male with a PMHx of HTN, HLD, recent hip fracture s/p hip surgery on 04/01/2020 bed-bound since procedure, BIBA from home s/p home VNA noted patient to be febrile 100.5. Hx obtained from who reports continued dysuria, urinary frequency since that admission, and dry cough. On exam afebrile rectally, NAD, mental status/deconditioning reportedly at baseline since recent hip arthroplasty, rule out UTI vs other infectious etiology vs metabolic abnormalities. Low concern for CVA/ICH Plan: EKG, labs, UA, CXR, COVID-19 testing, lactic/blood cultures Low concern for severe sepsis at this time Medical Records Attestation: I reviewed the patient's medical records. Lab Data Attestation: I reviewed the patient's lab results. Result diagrams: 06/28/20 12:16 06/28/20 12:16 Labs: Lab Results 06/28/20 06/28/20 06/28/20 Range/Units 12:16 12:16 12:16 WBC 7.5 (4.8-10.8) X10*3/uL RBC 4.99 (4.60-5.80) X10*6/uL Hgb 13.0 L (14.0-18.0) g/dl Hct 41.1 L (42-52) % MCV 82.4 (80-98) fL MCH 26.1 L (27.0-33.0) pg MCHC 31.6 (31.0-36.0) g/dl RDW 15.8 (11.0-16.0) % Plt Count 228 (160-400) X10*3/uL MPV 10.4 (9.4-12.4) fL Immature Gran % (Auto) 0.4 (0.0-0.4) % Neut % (Auto) 71.1 (45-73) % Lymph % (Auto) 20.3 (20-40) % Hudson % (Auto) 7.4 (2-11) % Eos % (Auto) 0.7 (0-4) % Baso % (Auto) 0.1 (0-2) % Lymph # (Auto) 1.5 (1.2-4.9) X10*3/uL Hudson # (Auto) 0.6 (0.1-1.2) X10*3/uL Eos # (Auto) 0.1 (0.0-0.4) X10*3/uL Baso # (Auto) 0.0 (0.0-0.2) X10*3/uL Abs Immat Gran (auto) 0.03 (0.00-0.03) X10*3/uL Absolute Neuts (auto) 5.3 (2.0-8.3) X10*3/uL Absolute Nucleated RBC 0.000 (0.0-0.012) X10*3/uL Nucleated RBC % (auto) 0.0 (0.0-0.2) /100WBC PT 12.1 (10.8-13.0) SEC INR 1.0 (0.9-1.1) APTT 34.6 (24.1-38.0) SEC Sodium 140 (135-145) mmol/L Potassium 4.3 (3.3-5.1) mmol/L Chloride 104 (96-108) mmol/L Carbon Dioxide 28 (22-29) mmol/L Anion Gap 12 (12-20) BUN 18 H (9-16) mg/dL Creatinine 0.69 (0.5-1.4) mg/dL Estim Creat Clear Calc 56.2 Estimated GFR > 60 Random Glucose 119 H (60-115) mg/dL Lactic Acid (0.5-2.0) mmol/L Calcium 9.5 D (8.4-10.2) mg/dL Magnesium 2.3 (1.6-2.6) mg/dL Total Bilirubin 1.0 (0.0-1.0) mg/dL Direct Bilirubin 0.4 (0.0-0.5) mg/dL AST 23 (5-37) U/L ALT 19 (0-40) U/L Alkaline Phosphatase 96 (39-117) U/L Troponin I High Sens (<3.5-35.0) ng/L Total Protein 6.8 (6.5-8.0) g/dL Albumin 3.9 (3.5-5.0) g/dL Lipase 32 (8-78) U/L Urine Color Urine Appearance Urine pH (5.0-8.0) Ur Specific Keldron (1.005-1.025) Urine Protein (NEG-TRACE) MG/DL Urine Glucose (UA) (NEG) MG/DL Urine Ketones (NEG) MG/DL Urine Blood (NEG) Urine Nitrite (NEG) Ur Leukocyte Esterase (NEG) Urine RBC (0) /HPF Urine WBC (0-4) /HPF Ur Squamous Epith Cells /LPF Amorphous Sediment /LPF Urine Bacteria /LPF Coronavirus (PCR) (Negative) Influenza Type A (PCR) (Negative) Influenza Type B (PCR) (Negative) RSV RNA Qual (PCR) (Negative) 06/28/20 06/28/20 06/28/20 Range/Units 12:16 12:16 12:16 WBC (4.8-10.8) X10*3/uL RBC (4.60-5.80) X10*6/uL Hgb (14.0-18.0) g/dl Hct (42-52) % MCV (80-98) fL MCH (27.0-33.0) pg MCHC (31.0-36.0) g/dl RDW (11.0-16.0) % Plt Count (160-400) X10*3/uL MPV (9.4-12.4) fL Immature Gran % (Auto) (0.0-0.4) % Neut % (Auto) (45-73) % Lymph % (Auto) (20-40) % Hudson % (Auto) (2-11) % Eos % (Auto) (0-4) % Baso % (Auto) (0-2) % Lymph # (Auto) (1.2-4.9) X10*3/uL Hudson # (Auto) (0.1-1.2) X10*3/uL Eos # (Auto) (0.0-0.4) X10*3/uL Baso # (Auto) (0.0-0.2) X10*3/uL Abs Immat Gran (auto) (0.00-0.03) X10*3/uL Absolute Neuts (auto) (2.0-8.3) X10*3/uL Absolute Nucleated RBC (0.0-0.012) X10*3/uL Nucleated RBC % (auto) (0.0-0.2) /100WBC PT (10.8-13.0) SEC INR (0.9-1.1) APTT (24.1-38.0) SEC Sodium (135-145) mmol/L Potassium (3.3-5.1) mmol/L Chloride (96-108) mmol/L Carbon Dioxide (22-29) mmol/L Anion Gap (12-20) BUN (9-16) mg/dL Creatinine (0.5-1.4) mg/dL Estim Creat Clear Calc Estimated GFR Random Glucose (60-115) mg/dL Lactic Acid 1.2 (0.5-2.0) mmol/L Calcium (8.4-10.2) mg/dL Magnesium (1.6-2.6) mg/dL Total Bilirubin (0.0-1.0) mg/dL Direct Bilirubin (0.0-0.5) mg/dL AST (5-37) U/L ALT (0-40) U/L Alkaline Phosphatase (39-117) U/L Troponin I High Sens < 3.5 (<3.5-35.0) ng/L Total Protein (6.5-8.0) g/dL Albumin (3.5-5.0) g/dL Lipase (8-78) U/L Urine Color Urine Appearance Urine pH (5.0-8.0) Ur Specific Keldron (1.005-1.025) Urine Protein (NEG-TRACE) MG/DL Urine Glucose (UA) (NEG) MG/DL Urine Ketones (NEG) MG/DL Urine Blood (NEG) Urine Nitrite (NEG) Ur Leukocyte Esterase (NEG) Urine RBC (0) /HPF Urine WBC (0-4) /HPF Ur Squamous Epith Cells /LPF Amorphous Sediment /LPF Urine Bacteria /LPF Coronavirus (PCR) NEGATIVE (Negative) Influenza Type A (PCR) NEGATIVE (Negative) Influenza Type B (PCR) NEGATIVE (Negative) RSV RNA Qual (PCR) NEGATIVE (Negative) 06/28/20 Range/Units 12:16 WBC (4.8-10.8) X10*3/uL RBC (4.60-5.80) X10*6/uL Hgb (14.0-18.0) g/dl Hct (42-52) % MCV (80-98) fL MCH (27.0-33.0) pg MCHC (31.0-36.0) g/dl RDW (11.0-16.0) % Plt Count (160-400) X10*3/uL MPV (9.4-12.4) fL Immature Gran % (Auto) (0.0-0.4) % Neut % (Auto) (45-73) % Lymph % (Auto) (20-40) % Hudson % (Auto) (2-11) % Eos % (Auto) (0-4) % Baso % (Auto) (0-2) % Lymph # (Auto) (1.2-4.9) X10*3/uL Hudson # (Auto) (0.1-1.2) X10*3/uL Eos # (Auto) (0.0-0.4) X10*3/uL Baso # (Auto) (0.0-0.2) X10*3/uL Abs Immat Gran (auto) (0.00-0.03) X10*3/uL Absolute Neuts (auto) (2.0-8.3) X10*3/uL Absolute Nucleated RBC (0.0-0.012) X10*3/uL Nucleated RBC % (auto) (0.0-0.2) /100WBC PT (10.8-13.0) SEC INR (0.9-1.1) APTT (24.1-38.0) SEC Sodium (135-145) mmol/L Potassium (3.3-5.1) mmol/L Chloride (96-108) mmol/L Carbon Dioxide (22-29) mmol/L Anion Gap (12-20) BUN (9-16) mg/dL Creatinine (0.5-1.4) mg/dL Estim Creat Clear Calc Estimated GFR Random Glucose (60-115) mg/dL Lactic Acid (0.5-2.0) mmol/L Calcium (8.4-10.2) mg/dL Magnesium (1.6-2.6) mg/dL Total Bilirubin (0.0-1.0) mg/dL Direct Bilirubin (0.0-0.5) mg/dL AST (5-37) U/L ALT (0-40) U/L Alkaline Phosphatase (39-117) U/L Troponin I High Sens (<3.5-35.0) ng/L Total Protein (6.5-8.0) g/dL Albumin (3.5-5.0) g/dL Lipase (8-78) U/L Urine Color YELLOW Urine Appearance CLOUDY Urine pH 7.5 (5.0-8.0) Ur Specific Keldron 1.020 (1.005-1.025) Urine Protein NEG (NEG-TRACE) MG/DL Urine Glucose (UA) NEG (NEG) MG/DL Urine Ketones NEG (NEG) MG/DL Urine Blood NEG (NEG) Urine Nitrite POS H (NEG) Ur Leukocyte Esterase TRACE H (NEG) Urine RBC 0 (0) /HPF Urine WBC 0-2 (0-4) /HPF Ur Squamous Epith Cells NONE /LPF Amorphous Sediment 2+ /LPF Urine Bacteria 3+ /LPF Coronavirus (PCR) (Negative) Influenza Type A (PCR) (Negative) Influenza Type B (PCR) (Negative) RSV RNA Qual (PCR) (Negative) Discharge Plan Discharge Clinical Impression: Acute UTI Patient Disposition: Home, Self-Care Instructions: Urinary Tract Infection in Older Adults (ED) Additional Instructions: You have a urinary tract infection. Levaquin is an antibiotic, take as prescribed. It is important that you follow-up with her PCP. If he develops fever unresolved Tylenol Motrin, nausea/vomiting, abdominal pain, chest pain, shortness of breath return to the ED. Tiene gabriel infecci?n del tracto urinario. Levaquin es un antibi?moreno, t?matson seg?n lo prescrito. Es importante que cande un seguimiento con blela PCP. Si desarrolla fiebre sin resolver con Tylenol Motrin, n?useas / v?mitos, dolor abdominal, dolor de pecho, dificultad para respirar, regrese al servicio de urgencias. Prescriptions: New levofloxacin 750 mg tablet 750 mg PO DAILY 5 Days Qty: 5 RF: 0 No Action cefuroxime axetil 500 mg tablet 500 mg PO BID 7 Days Qty: 14 RF: 0 atorvastatin 10 mg tablet 10 mg PO DAILY RF: 0 lidocaine-prilocaine 2.5-2.5 % cream 1 appl topical BEDTIME RF: 0 tamsulosin 0.4 mg capsule 0.4 mg PO DAILY RF: 0 lisinopril 10 mg tablet 10 mg PO DAILY RF: 0 Hold Instructions: Resume on 04/09/20. Blood pressure is acceptable range without lisinopril, monitor blood pressure in rehab if blood pressure is consistently above 140mmhg please add back lisinopril. oxybutynin chloride 5 mg tablet extended release 24hr 5 mg PO DAILY RF: 0 pregabalin [Lyrica] 150 mg capsule 150 mg PO BID RF: 0 acetaminophen 325 mg Tablet 650 mg PO Q6H PRN (Reason: Pain, Mild (Pain Scale 1-3)) Qty: 20 RF: 0 senna 8.6 mg capsule 8.6 mg PO BEDTIME Qty: 30 RF: 0 docusate sodium [Colace] 100 mg capsule 100 mg PO DAILY Qty: 30 RF: 0 Referrals: Juan Antonio Hicks MD [Primary Care Provider] - 2 days Print Language: Chinese
[2020-06-28 12:29] LABS: MANUAL DIFF FLAG NO
[2020-06-28 12:30] LABS: Basophils Percent Auto 0.1 % (0-2); Eosinophils Absolute Auto 0.1 X10*3/uL (0.0-0.4); Eosinophils Percent Auto 0.7 % (0-4); Hematocrit 41.1 % (42-52); Imm Gran Abs Auto 0.03 X10*3/uL (0.00-0.03); Imm Gran Pct Auto 0.4 % (0.0-0.4); Lymphocytes Absolute Auto 1.5 X10*3/uL (1.2-4.9); Lymphocytes Percent Auto 20.3 % (20-40); Mean Corpuscular HGB Conc 31.6 g/dl (31.0-36.0); Mean Corpuscular Hemoglobin 26.1 pg (27.0-33.0); Mean Corpuscular Volume 82.4 fL (80-98); Mean Platelet Volume 10.4 fL (9.4-12.4); Monocytes Absolute Auto 0.6 X10*3/uL (0.1-1.2); Monocytes Percent Auto 7.4 % (2-11); Neutrophils Absolute Auto 5.3 X10*3/uL (2.0-8.3); Neutrophils Percent Auto 71.1 % (45-73); Platelet Count 228 X10*3/uL (160-400); Red Blood Count 4.99 X10*6/uL (4.60-5.80); Red Cell Distribution Width 15.8 % (11.0-16.0); White Blood Count 7.5 X10*3/uL (4.8-10.8)
[2020-06-28 12:36] LABS: Prothrombin Time 12.1 SEC (10.8-13.0)
[2020-06-28 12:38] LABS: Partial Thromboplastin Time 34.6 SEC (24.1-38.0)
[2020-06-28 12:41] LABS: Glucose Urine UA NEG (NEG); Leukocyte Esterase Urine TRACE (NEG); Nitrite Urine POS (NEG); PH 7.5 (5.0-8.0); UACC Culture Trigger YES; Urine Blood NEG (NEG); Urine Ketones NEG (NEG); Urine Protein NEG (NEG-TRACE)
[2020-06-28 12:44] LABS: Appearance Urine CLOUDY; Color Urine YELLOW
[2020-06-28 12:49] LABS: Lactic Acid 1.2 mmol/L (0.5-2.0)
[2020-06-28 12:53] LABS: Bacteria Urine 3+ /LPF; RBC Urine 0 /HPF (0); WBC Urine 0-2 /HPF (0-4)
[2020-06-28 12:54] LABS: Amorphous Sediment Urine 2+ /LPF
[2020-06-28 12:59] LABS: Troponin-I High Sensitivity < 3.5 ng/L (<3.5-35.0)
[2020-06-28 13:01] VITALS: BP 164/85; PULSE 78; RESP 16; TEMP 36.7; O2SAT 96
[2020-06-28 13:27] LABS: Influenza A PCR NEGATIVE (Negative); Influenza B PCR NEGATIVE (Negative); Resp Syncy Virus RNA Qual PCR NEGATIVE (Negative); SARS COV2 PCR INHOUSE NEGATIVE (Negative)
[2020-06-28] MEDS: levoFLOXacin/D5W 750 MG/150 ML PIGGYBACK 100 MG IV (13:36)
[2020-06-28 13:51] LABS: Alanine Aminotransferase 19 U/L (0-40); Albumin Level 3.9 g/dL (3.5-5.0); Alkaline Phosphatase 96 U/L (39-117); Anion Gap 12 (12-20); Aspartate Amino Transferase 23 U/L (5-37); Bilirubin Direct 0.4 mg/dL (0.0-0.5); Blood Urea Nitrogen 18 mg/dL (9-16); Calcium 9.5 mg/dL (8.4-10.2); Carbon Dioxide 28 mmol/L (22-29); Chloride 104 mmol/L (96-108); Creatinine Clr Calc Pharmacy 56.2; Estimated Glomerular Filt Rate > 60; Glucose Random 119 mg/dL (60-115); Lipase 32 U/L (8-78); Magnesium 2.3 mg/dL (1.6-2.6); Potassium 4.3 mmol/L (3.3-5.1); Sodium 140 mmol/L (135-145); Total Protein 6.8 g/dL (6.5-8.0)
[2020-06-28 16:10] VITALS: BP 156/93; PULSE 87; RESP 22; TEMP 36.4; O2SAT 96
== END 2020-06-28 17:14 | disposition home or self-care (01) ==
PROVIDERS: Physician Assistant; Emergency Provider Internal Medicine; PCP Internal Medicine
DX: N39.0 Urinary tract infection, site not specified (principal); R50.9 Fever, unspecified; I10 Essential (primary) hypertension; Z20.822 Contact with and (suspected) exposure to COVID-19; Z79.899 Other long term (current) drug therapy
CPT/HCPCS: 0241U; 36415; 51702; 71045; 80048; 80076; 81001; 81003; 83605; 83690; 83735; 84484; 85025; 85610; 85730; 87040; 87086; 87088; 87186; 93005; 96360; 99285; J1956

== ENCOUNTER 2021-11-02 02:40 | Emergency (ER) | payer OTHER, MEDICARE, SELFPAY ==
--- NOTE | 2021-11-02 02:47 | ED.EXTPRO ---
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 He is giving his family a hard time not sleeping. They cannot keep him comfortable. They have been in [facility] with [facility] and [facility]. He is not sleeping well. MD Complaint: extremity pain Onset (ago): month(s) (1+) Pain Consistency: constant Location: left, right and lower extremity Quality: burning Radiation: distal Relieving factors: other (lyrica was the only thing that worked) Exacerbating factors: nothing Associated symptoms: denies other symptoms Context: other (chronic neuropathy) Related Data Home Medications Medication Instructions Recorded Confirmed atorvastatin 10 mg tablet 10 mg PO DAILY 03/30/20 05/09/20 lidocaine-prilocaine 2.5 %-2.5 % 1 appl topical BEDTIME 03/30/20 05/09/20 topical cream lisinopril 10 mg tablet 10 mg PO DAILY 03/30/20 05/09/20 oxybutynin chloride 5 mg 5 mg PO DAILY 03/30/20 05/09/20 tablet,extended release 24 hr pregabalin 150 mg capsule (Lyrica) 150 mg PO BID 03/30/20 05/09/20 tamsulosin 0.4 mg capsule 0.4 mg PO DAILY 03/30/20 05/09/20 Previous Rx's Medication Instructions Recorded acetaminophen 325 mg tablet 650 mg PO Q6H PRN Pain, Mild (Pain 04/04/20 Scale 1-3) #20 tabs docusate sodium 100 mg capsule 100 mg PO DAILY #30 caps 04/04/20 (Colace) sennosides 8.6 mg capsule (senna) 8.6 mg PO BEDTIME #30 caps 04/04/20 cefuroxime axetil 500 mg tablet 500 mg PO BID 7 days #14 tabs 05/09/20 levofloxacin 750 mg tablet 750 mg PO DAILY 5 days #5 tabs 06/28/20 melatonin 5 mg tablet 5 mg PO BEDTIME PRN sleep #30 tabs 11/02/21 trazodone 50 mg tablet 50 mg PO BEDTIME PRN insomnia #30 11/02/21 tabs Allergies Allergy/AdvReac Type Severity Reaction Status Date / Time No Known Allergies Allergy Mild N/A Verified 06/27/20 12:10 Review of Systems Review of Systems: Constitutional : No Fever, No Chills ENT/Mouth : No Ear Pain, No Hoarseness, No sore throat Eyes: No Eye Pain, No Swelling, No Redness, No Foreign Body Cardiovascular : No Chest Pain, No SOB Respiratory : No Cough, No Dyspnea Gastrointestinal : No Nausea, No Vomiting, No Diarrhea, No abdominal Pain Genitourinary : No Dysuria, No Hematuria Musculoskeletal : positive joint pain, No Myalgias, No Joint Swelling Skin : No Skin lacerations, No rash Neuro : No Weakness, No Numbness, No Loss of Consciousness, No Dizziness, No Headache Psych : No Anxiety/Panic, No Depression Heme/Lymph: no easy bruising, no Lymphadenopathy Endocrine : No Polyuria, No Polydipsia All other systems reviewed and are negative [facility] Past Medical History Attestation statement: The following information was validated with the patient. Medical History Closed displaced fracture of right femoral neck Closed head injury Cognitive impairment Contusion of right chest wall Fall HTN (hypertension) Hypercholesteremia Neuropathy Surgical History Hx of colonoscopy Hx of cystoscopy Social History Social History (Updated 11/02/21 @ 03:21 by Chanelle Do DO) Household Members: Spouse Housing: Unknown / Unable to assess Do you presently have visiting nurse or other home services: Yes Unable to assess alcohol history related to: Unknown Alcohol intake: never Patient Tobacco Use Status: Tobacco use Unknown Advance Directives Date on File: 04/05/20 service: Yes Current occupational status: retired Physical Exam Vital Signs: Vital Signs: BMI result Body Mass Index 17.3 Appearance: Alert. Oriented at his baseline. No acute distress. Eyes: Pupils equal, round and reactive to light. ENT: Pharynx normal. Neck: Normal inspection. Neck supple. CVS: Normal heart rate and rhythm. Pulses normal. Respiratory: No respiratory distress. Breath sounds normal. Abdomen: Soft and nontender. Skin: Skin warm and dry. Normal skin color. Normal skin turgor. Extremities: No lower extremity edema. No calf ttp 2+ DP pulses Neuro: Oriented X at his baseline. No motor deficit. No sensory deficit. Course Course Course Narrative: will increase trazodone to 50mg QHS MDM - Extremity (Nontraumatic) MDM Narrative Medical decision making narrative: 86 yo male with hx of cognitive impairment, neuropathy, HTN, HLD, BPH, here with 1+ months of neuropathy due to his insurance company not filling his lyrica. At this time he is has good pulses distally. This is not a new complaint. I did speak to his daughter who is aware we will not have better luck getting the insurance company to fill the lyrica - she is aware. At this time will obtain basic labs and give low dose oxycodone to see if that helps with his pain at all. Lab Data Result diagrams: 11/02/21 03:45 11/02/21 03:45 Labs: Lab Results 11/02/21 11/02/21 11/02/21 Range/Units 03:21 03:45 03:45 WBC 8.9 (4.8-10.8) X10*3/uL RBC 5.51 (4.60-5.80) X10*6/uL Hgb 14.6 (14.0-18.0) g/dl Hct 45.6 (42.0-52.0) % MCV 82.8 (80.0-98.0) fL MCH 26.5 L (27.0-33.0) pg MCHC 32.0 (31.0-36.0) g/dl RDW 14.1 (11.0-16.0) % Plt Count 208 (160-400) X10*3/uL MPV 9.9 (9.4-12.4) fL Immature Gran % (Auto) 0.7 H (0.0-0.4) % Neut % (Auto) 67.4 (45-73) % Lymph % (Auto) 21.5 (20-40) % [place] % (Auto) 8.2 (2-11) % Eos % (Auto) 1.8 (0-4) % Baso % (Auto) 0.4 (0-2) % Lymph # (Auto) 1.9 (1.2-4.9) X10*3/uL [place] # (Auto) 0.7 (0.1-1.2) X10*3/uL Eos # (Auto) 0.2 (0.0-0.4) X10*3/uL Baso # (Auto) 0.0 (0.0-0.2) X10*3/uL Abs Immat Gran (auto) 0.06 H (0.00-0.03) X10*3/uL Absolute Neuts (auto) 6.0 (2.0-8.3) x10*3/uL Absolute Nucleated RBC 0.000 (0.0-0.012) X10*3/uL Nucleated RBC % (auto) 0.0 (0.0-0.2) /100WBC Sodium 137 (135-145) mmol/L Potassium 4.1 (3.3-5.1) mmol/L Chloride 101 (96-108) mmol/L Carbon Dioxide 24 (22-29) mmol/L Anion Gap 16 (12-20) BUN 11 (9-16) mg/dL Creatinine 0.71 (0.5-1.4) mg/dL Estim Creat Clear Calc 52.5 Estimated GFR > 60 Random Glucose 110 (60-115) mg/dL Calcium 9.2 (8.4-10.2) mg/dL Magnesium 2.1 (1.6-2.6) mg/dL Total Bilirubin 0.8 (0.0-1.0) mg/dL Direct Bilirubin 0.3 (0.0-0.5) mg/dL AST 40 H D (5-37) U/L ALT 8 (0-40) U/L Alkaline Phosphatase 110 (39-117) U/L Total Protein 7.4 (6.5-8.0) g/dL Albumin 4.1 (3.5-5.0) g/dL Urine Color Yellow Urine Appearance Clear Urine pH 7.0 (5.0-8.0) Ur Specific [place] 1.010 (1.005-1.025) Urine Protein Negative (Neg-Trace) mg/dL Urine Glucose (UA) Negative (Negative) mg/dL Urine Ketones Negative (Negative) mg/dL Urine Blood Negative (Negative) Urine Nitrite Negative (Negative) Ur Leukocyte Esterase Small (1+) H (Negative) Urine RBC 0-2 (0-2) /HPF Urine WBC 0-5 (0-5) /HPF Ur Squamous Epith Cells 0-2 (0-2) /HPF Urine Bacteria None Seen (None Seen) Hyaline Casts 0-2 (0-2) /LPF Discharge Plan Discharge Clinical Impression: Neuropathy Patient Disposition: Home, Self-Care Instructions: Peripheral Neuropathy (ED) Additional Instructions: to help with sleep increase trazodone from 25 mg to 50mg please call his doctor on Wednesday we can help with placement if family needs respite aumentar la trazodona de 25 mg a 50 mg por la noche Prescriptions: New trazodone 50 mg tablet 50 mg PO BEDTIME PRN (Reason: insomnia) Qty: 30 0RF melatonin 5 mg tablet 5 mg PO BEDTIME PRN (Reason: sleep) Qty: 30 0RF No [facility] cefuroxime axetil 500 mg tablet 500 mg PO BID 7 Days Qty: 14 0RF levofloxacin 750 mg tablet 750 mg PO DAILY 5 Days Qty: 5 0RF atorvastatin 10 mg tablet 10 mg PO DAILY lidocaine-prilocaine 2.5-2.5 % cream 1 appl topical BEDTIME tamsulosin 0.4 mg capsule 0.4 mg PO DAILY lisinopril 10 mg tablet 10 mg PO DAILY Hold Instructions: Resume on 04/09/20. Blood pressure is acceptable range without lisinopril, monitor blood pressure in rehab if blood pressure is consistently above 140mmhg please add back lisinopril. oxybutynin chloride 5 mg tablet extended release 24hr 5 mg PO DAILY pregabalin [Lyrica] 150 mg capsule 150 mg PO BID acetaminophen 325 mg Tablet 650 mg PO Q6H PRN (Reason: Pain, Mild (Pain Scale 1-3)) Qty: 20 0RF senna 8.6 mg capsule 8.6 mg PO BEDTIME Qty: 30 0RF docusate sodium [Colace] 100 mg capsule 100 mg PO DAILY Qty: 30 0RF Print Language: Telugu
[2021-11-02 03:12] VITALS: BP 160/70; PULSE 78; O2SAT 99; BMI 17.3
[2021-11-02 03:33] LABS: Appearance Urine Clear; Color Urine Yellow; Glucose Urine UA Negative (Negative); Leukocyte Esterase Urine Small (1+) (Negative); Nitrite Urine Negative (Negative); Urine Blood Negative (Negative); Urine Ketones Negative (Negative); Urine Protein Negative (Neg-Trace)
[2021-11-02 03:41] LABS: Bacteria Urine None Seen (None Seen); Hyaline Casts Urine 0-2 /LPF (0-2); RBC Urine 0-2 /HPF (0-2); Squamous Epithelial Cell Urine 0-2 /HPF (0-2); UACC Culture Trigger YES; WBC Urine 0-5 /HPF (0-5)
[2021-11-02 03:49] LABS: Basophils Percent Auto 0.4 % (0-2); Eosinophils Absolute Auto 0.2 X10*3/uL (0.0-0.4); Eosinophils Percent Auto 1.8 % (0-4); Hematocrit 45.6 % (42.0-52.0); Hemoglobin 14.6 g/dl (14.0-18.0); Imm Gran Abs Auto 0.06 X10*3/uL (0.00-0.03); Imm Gran Pct Auto 0.7 % (0.0-0.4); Lymphocytes Absolute Auto 1.9 X10*3/uL (1.2-4.9); Lymphocytes Percent Auto 21.5 % (20-40); MANUAL DIFF FLAG NO; Mean Corpuscular Hemoglobin 26.5 pg (27.0-33.0); Mean Corpuscular Volume 82.8 fL (80.0-98.0); Mean Platelet Volume 9.9 fL (9.4-12.4); Monocytes Absolute Auto 0.7 X10*3/uL (0.1-1.2); Monocytes Percent Auto 8.2 % (2-11); Neutrophils Percent Auto 67.4 % (45-73); Platelet Count 208 X10*3/uL (160-400); Red Blood Count 5.51 X10*6/uL (4.60-5.80); Red Cell Distribution Width 14.1 % (11.0-16.0); White Blood Count 8.9 X10*3/uL (4.8-10.8)
[2021-11-02] MEDS: oxyCODONE HCl Immed Release 5 MG TABLET 2.5 MG PO (03:55)
[2021-11-02 04:27] LABS: Alanine Aminotransferase 8 U/L (0-40); Albumin Level 4.1 g/dL (3.5-5.0); Alkaline Phosphatase 110 U/L (39-117); Anion Gap 16 (12-20); Aspartate Amino Transferase 40 U/L (5-37); Bilirubin Direct 0.3 mg/dL (0.0-0.5); Bilirubin Total 0.8 mg/dL (0.0-1.0); Blood Urea Nitrogen 11 mg/dL (9-16); Calcium 9.2 mg/dL (8.4-10.2); Carbon Dioxide 24 mmol/L (22-29); Chloride 101 mmol/L (96-108); Creatinine Clr Calc Pharmacy 52.5; Estimated Glomerular Filt Rate > 60; Glucose Random 110 mg/dL (60-115); Magnesium 2.1 mg/dL (1.6-2.6); Potassium 4.1 mmol/L (3.3-5.1); Sodium 137 mmol/L (135-145); Total Protein 7.4 g/dL (6.5-8.0)
--- NOTE | 2021-11-02 05:36 | PC.NURSE ---
Call out to [facility] @[phone] for transport back home via ambulance, [facility] will be here within the hour
--- NOTE | 2021-11-02 06:45 | PC.NURSE ---
Pt. reported some relief from diabetic neuropathy pain after receiving 2.5 mg of oxy. Pt. has been dc'd home and is pending an ambulance ride home.
== END 2021-11-02 07:21 | disposition home or self-care (01) ==
PROVIDERS: Emergency Provider Emergency Medicine
DX: G62.9 Polyneuropathy, unspecified (principal); I10 Essential (primary) hypertension; N40.0 Benign prostatic hyperplasia without lower urinary tract symptoms; Z79.899 Other long term (current) drug therapy
CPT/HCPCS: 36415; 80048; 80076; 81001; 83735; 85025; 87086; 99283

== ENCOUNTER 2022-04-21 10:30 | Outpatient (REF) | payer MEDICARE, SELFPAY ==
[2022-04-21 11:20] LABS: Prostate Specific Antigen 0.14 ng/mL (<0.05-4.0)
== END 2022-04-21 10:31 | disposition home or self-care (01) ==
LOC: HO.LHD 10:30
PROVIDERS: Visit Provider Urology
DX: Z85.46 Personal history of malignant neoplasm of prostate (principal); Z12.5 Encounter for screening for malignant neoplasm of prostate
CPT/HCPCS: 36415; 84153